=== PATIENT | female | born 1955 | race Caucasian/White ===

== ENCOUNTER → 2017-05-07 15:46 | Outpatient (CLI) | payer MEDICARE, OTHER, SELFPAY ==
[2017-05-07 19:04] LABS: Adenovirus F 40/41, stool Not Detected (NotDetected); Astrovirus Not Detected (NotDetected); Campylobacter Not Detected (NotDetected); Clostridium Difficile A/B, PCR Not Detected (NotDetected); Cryptosporidium Not Detected (NotDetected); Cyclospora Cayetanesis Not Detected (NotDetected); Entamoeba histolytica Not Detected (NotDetected); Enteroaggregative E coli Not Detected (NotDetected); Enteropathogenic E coli Not Detected (NotDetected); Enterotoxigenic E coli Not Detected (NotDetected); Giardia lamblia Not Detected (NotDetected); Norovirus Not Detected (NotDetected); Plesimonas Shigalloides, PCR Not Detected (NotDetected); Rotavirus A Not Detected (NotDetected); Salmonella, PCR Not Detected (NotDetected); Sapovirus Not Detected (NotDetected); Shiga-like toxin E coli Not Detected (NotDetected); Shigella Enterovasive E coli Not Detected (NotDetected); Vibrio Cholerae Not Detected (NotDetected); Vibrio, PCR Not Detected (NotDetected); Yersinia Entercolitica, PCR Not Detected (NotDetected)
[2017-05-10 11:08] LABS: H. pylori Breath Test Negative (Negative)
== END ==
PROVIDERS: PCP Nurse Practitioner Family; Visit Provider Nurse Practitioner Family
DX: R19.7 Diarrhea, unspecified (principal)
CPT/HCPCS: 83013; 87507

== ENCOUNTER → 2017-07-01 11:15 | Outpatient (REF) | payer MEDICARE, OTHER, SELFPAY | LOC: LAB 11:15 | PROVIDERS: Visit Provider Physician Assistant | DX: J02.9 Acute pharyngitis, unspecified (principal) | CPT/HCPCS: 87070 ==

== ENCOUNTER → 2017-09-16 16:36 | Outpatient (REF) | payer MEDICARE, OTHER, SELFPAY | LOC: LAB 16:36 | PROVIDERS: Visit Provider Physician Assistant | DX: R05 Cough (principal) | CPT/HCPCS: 87070; 87205 ==

== ENCOUNTER → 2017-09-25 10:09 | Outpatient (CLI) | payer MEDICARE, OTHER, SELFPAY ==
--- NOTE | 2017-09-25 10:24 | XR_ITS ---
XR chest 2V HISTORY: ITS.REASON: Cough ORDERING PHYSICIAN: Ramana Linton MD PATIENT AGE: 62 years COMPARISON: 11/06/2014 FINDINGS: The cardiomediastinal silhouette and pulmonary vascularity are within normal limits. Calcified nodes are present in the right paratracheal region, right hilum, with calcified granuloma in the right midlung. A vague density is present over the right lower lung zone at the sixth rib anteriorly and may be due to summation artifact. Follow-up may confirm. 8 weeks be area of infiltrate or developing nodule isn't included in the differential diagnosis. The remaining lungs are clear. IMPRESSION: Vague density right lung base which could be due to an area of summation density, small area of infiltrate or developing nodule. Consider follow-up to confirm stability or resolution
[2017-09-25 10:33] LABS: Basophils % 0.3 % (0.1-2.0); Eosinophils # 0.1 K/mm3 (0.0-0.4); Eosinophils % 0.5 % (0.1-12.0); Hematocrit 43.2 % (37.0-47.0); Hemoglobin 13.7 g/dL (12.2-16.2); Lymphocytes # 3.5 K/mm3 (0.7-4.5); Lymphocytes % 34.7 K/mm3 (10-50); Mean Corpuscular HGB Conc 31.6 g/dL (31.8-35.4); Mean Corpuscular Volume 88.5 fl (81-99); Mean Platelet Volume 8.9 fl (7.4-10.4); Monocytes # 0.5 K/mm3 (0.1-1.0); Monocytes % 4.9 % (1.7-9.3); Neutrophils # 6.1 K/mm3 (1.8-7.8); Neutrophils % 59.6 % (37.0-80.0); Platelet Count 229 K/mm3 (142-424); Red Blood Count 4.88 M/mm3 (4.20-5.40); Red Cell Distribution Width 13.4 % (11.5-17.5); White Blood Count 10.2 K/mm3 (4.8-10.8)
[2017-09-25 11:15] LABS: Alanine Aminotransferase 24 U/L (12-78); Albumin Level 3.7 gm/dL (3.4-5.0); Albumin/Globulin Ratio 1.2 (1.1-1.8); Alkaline Phosphatase 79 U/L (46-116); Anion Gap 11.6 mEq/L (5-15); Aspartate Amino Transferase 14 U/L (15-37); Bilirubin,Total 0.4 mg/dL (0.2-1.0); Blood Urea Nitrogen 13 mg/dL (7-18); Carbon Dioxide 32 mmol/L (21.0-32.0); Chloride 102 mmol/L (98-107); Chol/HDL Ratio 4.9 (1-3.5); Cholesterol 182 mg/dL (140-200); Estimated Glomerular Filt Rate 73 ml/min (>60); GFR (African American) 88 ML/MIN (>60); Globulin 3.1 gm/dl (1.3-3.2); Glucose 102 mg/dL (74-106); HDL Cholesterol 37 mg/dL (29-89); LDL Cholesterol 106 mg/dL (0-130); Potassium 3.6 mmoL/L (3.5-5.1); Sodium 142 mmol/L (136-145); Thyroid Stimulating Hormone 3.41 uIU/ml (0.358-3.740); Total Protein,Serum 6.8 gm/dL (6.4-8.2); Triglycerides 196 mg/dL (30-200); VLDL Cholesterol 39 mg/dL (0-40)
[2017-09-26 08:30] LABS: Iron 49 ug/dL (27-139); UIBC 251 ug/dL (118-369)
[2017-09-27 20:03] LABS: Iron Saturation 16 % (15-55)
== END ==
PROVIDERS: Physician Assistant; Visit Provider Emergency Medicine
DX: R42 Dizziness and giddiness (principal)
CPT/HCPCS: 36415; 71046; 80053; 80061; 83540; 83550; 84443; 85025

== ENCOUNTER → 2017-10-11 09:08 | Outpatient (CLI) | payer MEDICARE, OTHER, SELFPAY ==
[2017-10-11 09:11] LABS: Adenovirus F 40/41, stool Not Detected (NotDetected); Astrovirus Not Detected (NotDetected); Campylobacter Not Detected (NotDetected); Clostridium Difficile A/B, PCR Not Detected (NotDetected); Cryptosporidium Not Detected (NotDetected); Cyclospora Cayetanesis Not Detected (NotDetected); Entamoeba histolytica Not Detected (NotDetected); Enteroaggregative E coli Not Detected (NotDetected); Enteropathogenic E coli Not Detected (NotDetected); Enterotoxigenic E coli Not Detected (NotDetected); Giardia lamblia Not Detected (NotDetected); Plesimonas Shigalloides, PCR Not Detected (NotDetected); Rotavirus A Not Detected (NotDetected); Salmonella, PCR Not Detected (NotDetected); Sapovirus Not Detected (NotDetected); Shiga-like toxin E coli Not Detected (NotDetected); Shigella Enterovasive E coli Not Detected (NotDetected); Vibrio Cholerae Not Detected (NotDetected); Vibrio, PCR Not Detected (NotDetected); Yersinia Entercolitica, PCR Not Detected (NotDetected)
--- NOTE | 2017-10-11 10:22 | CA_ITS ---
PROCEDURE: 2-D echo Doppler INDICATIONS FOR THE TEST: Chest pain COPDX Heart MurmurX Tobacco SmokingX Palpitations Fatigue Syncope Edema Hypertension Diabetes Mellitus Rheumatic Fever SOBXDOE Obesity Hyperlipidemia Family History HD Additional History CAD PATIENT INFORMATION HEIGHT: 63 WEIGHT:169 GENDER: Female B/P:118/72 2-D/M-MODE INTERPRETATION: 2-D MEASUREMENTS OBSERVED VALUES IN CMS Right Ventricular Dimension (RVDd) 2.5 Interventricular Septum (Thickness)(IVsd) .8 Left Ventricular Internal Dimensions(LVIDd) 4.8 Left Ventricular Posterior Wall (Thickness)(LVPWd) .9 Aortic Root 4.0 Aortic Cusp Separation 1.9 Left Atrial Dimensions (LAD) 2.2 2D 1. Left atrium is mildly enlarged, left ventricle is normal size, there is no concentric left ventricular hypertrophy, visually estimated ejection fraction 50% with no obvious regional wall motion abnormality. 2. The right atrium and right ventricle are relatively normal size and function. 3. The aortic valve is thickened and calcified leaflet continue to display mobility, ascending aorta above the sinotubular junction appears to be enlarged, the CT scan of the chest with contrast is recommended to exclude presence of thoracic aneurysm. 4. The mitral and tricuspid valve leaflets are grossly normal. 5. The pulmonic valve is poorly visualized. 6. No significant pericardial effusion noted. DOPPLER INTERROGATION: Doppler interrogation of the aortic, mitral and tricuspid valvular presence of mild aortic, mild mitral and tricuspid regurgitation, tricuspid and jet velocity insufficient for calculation of the right ventricular systolic pressure, grade 1 diastolic dysfunction seen without tissue Doppler evidence of raised left atrial pressure. CONCLUSION: 1. Normal left ventricular size, visually estimated ejection fraction 50% with no obvious regional wall motion abnormality, grade 1 diastolic dysfunction seen without tissue Doppler evidence of raised left atrial pressure. 2. Mild aortic, mild mitral and tricuspid regurgitation. 3. The ascending aorta above the sinotubular junction appears to be enlarged, the CT scan of the chest with contrast is recommended for further evaluation. 4. No significant pericardial effusion noted.
[2017-10-11 13:14] LABS: Norovirus Detected (NotDetected)
== END ==
PROVIDERS: PCP Emergency Medicine; Visit Provider Physician Assistant
DX: I25.10 Atherosclerotic heart disease of native coronary artery without angina pectoris (principal); R19.7 Diarrhea, unspecified
CPT/HCPCS: 87507; 93306

== ENCOUNTER → 2017-11-18 13:18 | Outpatient (CLI) | payer MEDICARE, OTHER, SELFPAY ==
[2017-11-18 14:35] LABS: Anion Gap 10.6 mEq/L (5-15); Blood Urea Nitrogen 11 mg/dL (7-18); Calcium 8.6 mg/dL (8.5-10.1); Carbon Dioxide 33 mmol/L (21.0-32.0); Chloride 102 mmol/L (98-107); Creatinine,Serum 0.96 mg/dL (0.55-1.02); Estimated Glomerular Filt Rate 59 ml/min (>60); GFR (African American) 71 ML/MIN (>60); Potassium 3.6 mmoL/L (3.5-5.1); Sodium 142 mmol/L (136-145)
[2017-11-18 14:52] LABS: Glucose 148 mg/dL (74-106)
== END ==
PROVIDERS: PCP Emergency Medicine; Visit Provider Physician Assistant
DX: I77.89 Other specified disorders of arteries and arterioles (principal); B37.9 Candidiasis, unspecified
CPT/HCPCS: 36415; 80048; 87070; 87205

== ENCOUNTER → 2017-11-28 10:33 | Outpatient (REF) | payer MEDICARE, OTHER, SELFPAY | LOC: LAB 10:33 | PROVIDERS: Visit Provider Physician Assistant | DX: R31.9 Hematuria, unspecified (principal) | CPT/HCPCS: 87086 ==

== ENCOUNTER → 2018-02-04 14:22 | Outpatient (REF) | payer MEDICARE, OTHER, SELFPAY | LOC: LAB 14:22 | PROVIDERS: Visit Provider Physician Assistant | DX: R05 Cough (principal) | CPT/HCPCS: 87070; 87205 ==

== ENCOUNTER → 2018-06-16 13:34 | Outpatient (CLI) | payer MEDICARE, OTHER, SELFPAY ==
--- NOTE | 2018-06-16 13:38 | CA_ITS ---
PROCEDURE: 2-D M-mode and color Doppler study INDICATIONS FOR THE TEST: Chest pain COPDX Heart MurmurX Tobacco SmokingX Palpitations Fatigue Syncope Edema HypertensionXDiabetes Mellitus Rheumatic Fever SOBXDOEXObesityXHyperlipidemiaX Family History HD Additional History TDS COPD PATIENT INFORMATION HEIGHT: 63 WEIGHT:185 GENDER: Female B/P:122/72 2-D/M-MODE INTERPRETATION: 2-D MEASUREMENTS OBSERVED VALUES IN CMS Right Ventricular Dimension (RVDd) 2.3 Interventricular Septum (Thickness)(IVsd) .9 Left Ventricular Internal Dimensions(LVIDd) 4.9 Left Ventricular Posterior Wall (Thickness)(LVPWd) 1.0 Aortic Root 3.5 Aortic Cusp Separation 2.3 Left Atrial Dimensions (LAD) 2.2 2D 1. Left atrium is mildly enlarged, left ventricle is normal size, there is no concentric left ventricular hypertrophy, visually estimated ejection fraction of 55% with no regional wall motion abnormality. 2. The right atrium and right ventricle are mildly enlarged with normal contractility. 3. The aortic valve is minimally thickened and calcified. 4. The mitral and tricuspid valve leaflets are grossly normal. 5. The pulmonic valve is poorly visualized. 6. No significant pericardial effusion noted. DOPPLER INTERROGATION: Doppler interrogation of the aortic, mitral and tricuspid valvular presence of trace aortic, mild mitral and tricuspid regurgitation, tricuspid regurgitation jet velocity is inadequate for calculation of the right ventricular systolic pressure, diastolic parameters are inconclusive CONCLUSION: 1. Mild biatrial enlargement, normal left ventricular size, visually estimated ejection fraction 55% with no regional wall motion abnormality, diastolic parameters are inconclusive. 2. Mildly enlarged right ventricle with normal contractility. 3. Trace aortic, mild mitral and tricuspid regurgitation 4. No significant pericardial effusion noted.
--- NOTE | 2018-06-16 13:38 | CI_ITS ---
Cerebrovascular Exam Indications: 433.10 Occlusion/stenosis of carotid artery without cerebral infarction. IMPRESSIONS 1. The bilateral vertebral arteries are patent with normal antegrade flow. 2. Study suggests 70-99% stenosis involving the right internal carotid artery. 3. Study suggests 20-49% stenosis involving the left internal carotid artery. No change from the study of 27-Sep-2016. History: Risk factors: Current tobacco use. Hypertension. Hyperlipidemia. Carotid duplex study. Complete study and Doppler flow study including spectral analysis, color and miller scale imaging. Location: Vascular laboratory. Patient status: Outpatient. Tables: Arterial flow: + +--------+--------+ Location V sys V ed + +--------+--------+ Right CCA - proximal 64.4cm/s 16.5cm/s + +--------+--------+ Right CCA - distal 58.1cm/s 14.9cm/s + +--------+--------+ Right ECA 119cm/s -------- + +--------+--------+ Right ICA - proximal 446cm/s 193cm/s + +--------+--------+ Right ICA - mid 136cm/s 41.3cm/s + +--------+--------+ Right ICA - distal 110cm/s 39.3cm/s + +--------+--------+ Right vertebral 80.5cm/s -------- + +--------+--------+ Left CCA - proximal 84.5cm/s 31.4cm/s + +--------+--------+ Left CCA - distal 90.4cm/s 37.3cm/s + +--------+--------+ Left ECA 107cm/s -------- + +--------+--------+ Left ICA - proximal 84.2cm/s 33.9cm/s + +--------+--------+ Left ICA - mid 119cm/s 40.1cm/s + +--------+--------+ Left ICA - distal 86.7cm/s 28.9cm/s + +--------+--------+ Left vertebral 55.3cm/s -------- + +--------+--------+ Velocity ratios: + + + + + + Right, V sys Right, V ed Left, V sys Left, V ed + + + + + + Max ICA/dist CCA 7.68 12.95 1.32 1.08 + + + + + + (Report amended ) Electronically signed by: Miguel Ángel George [id number]
== END ==
PROVIDERS: PCP Physician Assistant; Visit Provider Physician Assistant
DX: R01.1 Cardiac murmur, unspecified (principal); R09.89 Other specified symptoms and signs involving the circulatory and respiratory systems
CPT/HCPCS: 93306; 93880

== ENCOUNTER → 2018-06-25 09:48 | Outpatient (CLI) | payer MEDICARE, OTHER, SELFPAY ==
[2018-06-25 10:16] LABS: Basophils # 0.1 K/mm3 (0-0.2); Basophils % 0.6 % (0.1-2.0); Eosinophils # 0.1 K/mm3 (0.0-0.4); Eosinophils % 0.9 % (0.1-12.0); Hematocrit 37.5 % (37.0-47.0); Hemoglobin 12.6 g/dL (12.2-16.2); Lymphocytes # 3.3 K/mm3 (0.7-4.5); Lymphocytes % 33.4 % (10-50); Mean Corpuscular HGB Conc 33.5 g/dL (31.8-35.4); Mean Corpuscular Hemoglobin 29.2 pg (27.0-31.2); Mean Corpuscular Volume 86.9 fl (81-99); Mean Platelet Volume 7.7 fl (7.4-10.4); Monocytes # 0.4 K/mm3 (0.1-1.0); Neutrophils # 5.9 K/mm3 (1.8-7.8); Platelet Count 269 K/mm3 (142-424); Red Blood Count 4.32 M/mm3 (4.20-5.40); White Blood Count 9.7 K/mm3 (4.8-10.8)
[2018-06-25 11:49] LABS: Alanine Aminotransferase 26 U/L (12-78); Albumin Level 3.4 gm/dL (3.4-5.0); Albumin/Globulin Ratio 1.1 (1.1-1.8); Alkaline Phosphatase 76 U/L (46-116); Aspartate Amino Transferase 19 U/L (15-37); Bilirubin,Total 0.4 mg/dL (0.2-1.0); Blood Urea Nitrogen 12 mg/dL (7-18); Carbon Dioxide 33 mmol/L (21.0-32.0); Chloride 101 mmol/L (98-107); Chol/HDL Ratio 5.1 (1-3.5); Cholesterol 192 mg/dL (140-200); Creatinine,Serum 0.72 mg/dL (0.55-1.02); Estimated Glomerular Filt Rate 82 ml/min (>60); Ferritin 41 ng/mL (8-388); GFR (African American) 99 ML/MIN (>60); Globulin 3.2 gm/dl (1.3-3.2); Glucose 97 mg/dL (74-106); HDL Cholesterol 38 mg/dL (29-89); LDL Cholesterol 92 mg/dL (0-130); Sodium 141 mmol/L (136-145); T4 (Thyroxine) 9.9 ug/dl (4.7-13.3); Thyroid Stimulating Hormone 4.48 uIU/ml (0.358-3.740); Total Protein,Serum 6.6 gm/dL (6.4-8.2); Triglycerides 312 mg/dL (30-200); VLDL Cholesterol 62 mg/dL (0-40)
[2018-06-26 08:18] LABS: Vitamin D 25 Hydroxy 9.2 ng/mL (30.0-100.0)
[2018-06-27 05:25] LABS: Iron 49 ug/dL (27-139); UIBC 244 ug/dL (118-369)
[2018-06-27 08:52] LABS: Iron Saturation 17 % (15-55)
== END ==
PROVIDERS: Visit Provider Physician Assistant
DX: R09.89 Other specified symptoms and signs involving the circulatory and respiratory systems (principal); E78.5 Hyperlipidemia, unspecified; D50.9 Iron deficiency anemia, unspecified
CPT/HCPCS: 36415; 80053; 80061; 82652; 82728; 83540; 83550; 84436; 84443; 85025; 87070; 87205

== ENCOUNTER 2018-10-01 17:11 | Emergency (ER) | payer MEDICARE, OTHER, SELFPAY ==
--- NOTE | 2018-10-01 17:10 | XR_ITS ---
XR chest 2V HISTORY: ITS.REASON: chest pain ORDERING PHYSICIAN: Ramana Drake MD PATIENT AGE: 63 years COMPARISON: 09/25/2017. FINDINGS: The cardiomediastinal silhouette and pulmonary vascularity are within normal limits. The lungs are clear without infiltrates, suspicious nodules, or pleural effusions. There are stable benign-appearing calcified mediastinal lymph nodes. There is a stable benign calcified granuloma in the right midlung. The remainder of the lung desai are clear. No acute bony abnormalities. IMPRESSION: No acute process and no significant change.
[2018-10-01 17:16] VITALS: BP 118/63; PULSE 79; RESP 20; TEMP 36.6; O2SAT 94; BMI 34.2
[2018-10-01 17:45] LABS: Basophils % 0.5 % (0.1-2.0); Eosinophils # 0.1 K/mm3 (0.0-0.4); Eosinophils % 0.9 % (0.1-12.0); Hematocrit 34.2 % (37.0-47.0); Hemoglobin 10.9 g/dL (12.2-16.2); Lymphocytes # 3.2 K/mm3 (0.7-4.5); Lymphocytes % 34.5 % (10-50); Mean Corpuscular Hemoglobin 27.4 pg (27.0-31.2); Mean Corpuscular Volume 85.7 fl (81-99); Monocytes # 0.5 K/mm3 (0.1-1.0); Monocytes % 5.2 % (1.7-9.3); Neutrophils # 5.5 K/mm3 (1.8-7.8); Platelet Count 245 K/mm3 (142-424); Red Blood Count 3.99 M/mm3 (4.20-5.40); Red Cell Distribution Width 14.6 % (11.5-17.5); White Blood Count 9.4 K/mm3 (4.8-10.8)
[2018-10-01 17:58] LABS: Anion Gap 13.6 mEq/L (5-15); Blood Urea Nitrogen 13 mg/dL (7-18); Calcium 8.6 mg/dL (8.5-10.1); Carbon Dioxide 29 mmol/L (21.0-32.0); Chloride 102 mmol/L (98-107); Creatinine Clearance Estimated 80 mL/min (50-200); Creatinine,Serum 0.93 mg/dL (0.55-1.02); Estimated Glomerular Filt Rate 61 ml/min (>60); GFR (African American) 74 ML/MIN (>60); Glucose 106 mg/dL (74-106); Potassium 3.6 mmoL/L (3.5-5.1); Sodium 141 mmol/L (136-145); Troponin I < 0.02 ng/ml (0.00-0.06)
--- NOTE | 2018-10-01 18:51 | HMH.EDGENADL ---
ED Disposition Clinical Impression: Strain of muscle of torso Disposition: Home, Self-Care Condition on Discharge: Good Instructions: DI for Atypical Chest Pain, DI for Back Strain or Sprain Referrals: Rosa M Hollingsworth PA [Primary Care Provider] - Time of Disposition: 19:52 - Critical Care Critical Care Time: No Attestation: On 10/01/18, the high probability of a clinically significant, sudden or life threatening deterioration of the following system(s) required my full and direct attention, intervention and personal management. The time I documented below is in addition to time spent performing reported procedures but includes the following listed in this critical care notation. Medical Decision Making - Medical Records Medical records reviewed: Yes: I reviewed the patient's medical records. - Ernie Inquiry Pt receiving controlled substance: No Ernie was queried for this patient: No Vital Signs: 10/01/18 17:16 Temperature 97.9 F Temperature Source Oral Pulse Rate [Left Radial] 79 Respiratory Rate 20 Blood Pressure [Right Arm] 118/63 Blood Pressure Mean [Right Arm] 81 Blood Pressure Source [Right Arm] Automatic Cuff Blood Pressure Position [Right Arm] Sitting 02 Sat by Pulse Oximetry 94 L Oxygen Delivery Method Room Air - Lab Data Lab results reviewed: Yes: I reviewed the patient's lab results. Lab Results 10/01/18 17:15: WBC 9.4, RBC 3.99 L, Hgb 10.9 L, Hct 34.2 L, MCV 85.7, MCH 27.4, MCHC 32.0, RDW 14.6, Plt Count 245, MPV 8.0, Neut % (Auto) 59.0, Lymph % (Auto) 34.5, [place] % (Auto) 5.2, Eos % (Auto) 0.9, Baso % (Auto) 0.5, Neut # (Auto) 5.5, Lymph # (Auto) 3.2, [place] # (Auto) 0.5, Eos # (Auto) 0.1, Baso # (Auto) 0.0 10/01/18 17:15: Sodium 141, Potassium 3.6, Chloride 102, Carbon Dioxide 29, Anion Gap 13.6, BUN 13, Creatinine 0.93, Estimated Creat Clear 80, Estimated GFR 61, Est GFR ( Amer) 74, Glucose 106, Calcium 8.6, Troponin I < 0.02 Result diagrams: 10/01/18 17:15 10/01/18 17:15 Orders (Tests/Meds): ED MEDICATIONS Discontinued Medications Generic Name Dose Route Start Last Admin Trade Name Becky PRN Reason Stop Dose Admin Hydrocodone Bitart/Acetaminophen 1 tab 10/01/18 19:45 [place] 7.5/325mg Tablet PO 10/01/18 19:46 ONCE ONE Ketorolac Tromethamine 30 mg 10/01/18 19:38 Toradol 30mg/Ml Vial IV 10/01/18 19:39 ONCE ONE ORDERS Category Date Time Status XR chest 2V Stat Exams 10/01/18 17:10 Taken General Adult HPI - General Chief complaint: Chest Pain Stated complaint: chest pain Time Seen by Provider: 10/01/18 18:57 Mode of Arrival: Ambulatory Source of Information: Patient Limitations: No Limitations Description of Symptoms (Recalled from ER Triage Doc. by RN): states she was bending iver helping lift a dresser when she raised up her back was hurting she bent back over to lift the dresser and raised back up again she started having some chest pain that went down and around her left breast into the middle of her chest - History of Present Illness HPI narrative: patient lifted a television with a friend, feeling chest and back pain at the t erminal end of the lift. Pain under left breast and left scapular area. no dyspnea. Pain is aggravated only by movement and deep breathing. - Related Data Home Medications Medication Instructions Recorded Confirmed aspirin 81 mg tablet,delayed 81 mg PO QDAY 05/02/17 09/11/18 release Previous Rx's Medication Instructions Recorded bupropion HCl XL 150 mg 24 hr 150 mg PO QAM #30 tab 08/06/17 tablet, extended release ketoconazole 200 mg tablet 200 mg PO DAILY #30 tab 11/28/17 atenolol 25 mg tablet 25 mg PO QAM #90 tab 03/25/18 fluticasone propionate 50 1 spray INTRANASAL BID PRN #9.9 g 04/03/18 mcg/actuation nasal spray,suspension montelukast 10 mg tablet 10 mg PO QPM #90 tab 05/23/18 fluticasone fur. 100 mcg-umeclid 1 inh INHALATION Q24H #60 each 06/17/18 62.5 mcg-vilan
--- NOTE | 2018-10-01 18:57 | ED_ITS ---
ED Disposition Clinical Impression: Strain of muscle of torso Disposition: Home, Self-Care Condition on Discharge: Good Instructions: DI for Atypical Chest Pain, DI for Back Strain or Sprain Referrals: Rosa M Hollingsworth PA [Primary Care Provider] - Time of Disposition: 19:52 - Critical Care Critical Care Time: No Attestation: On 10/01/18, the high probability of a clinically significant, sudden or life threatening deterioration of the following system(s) required my full and direct attention, intervention and personal management. The time I documented below is in addition to time spent performing reported procedures but includes the follow ing listed in this critical care notation. Medical Decision Making - Medical Records Medical records reviewed: Yes: I reviewed the patient's medical records. - Ernie Inquiry Pt receiving controlled substance: No Ernie was queried for this patient: No Vital Signs: 10/01/18 17:16 Temperature 97.9 F Temperature Source Oral Pulse Rate [Left Radial] 79 Respiratory Rate 20 Blood Pressure [Right Arm] 118/63 Blood Pressure Mean [Right Arm] 81 Blood Pressure Source [Right Arm] Automatic Cuff Blood Pressure Position [Right Arm] Sitting 02 Sat by Pulse Oximetry 94 L Oxygen Delivery Method Room Air - Lab Data Lab results reviewed: Yes: I reviewed the patient's lab results. Lab Results 10/01/18 17:15: WBC 9.4, RBC 3.99 L, Hgb 10.9 L, Hct 34.2 L, MCV 85.7, MCH 27.4, MCHC 32.0, RDW 14.6, Plt Count 245, MPV 8.0, Neut % (Auto) 59.0, Lymph % (Auto) 34.5, [place] % (Auto) 5.2, Eos % (Auto) 0.9, Baso % (Auto) 0.5, Neut # (Auto) 5.5, Lymph # (Auto) 3.2, [place] # (Auto) 0.5, Eos # (Auto) 0.1, Baso # (Auto) 0.0 10/01/18 17:15: Sodium 141, Potassium 3.6, Chloride 102, Carbon Dioxide 29, Anion Gap 13.6, BUN 13, Creatinine 0.93, Estimated Creat Clear 80, Estimated GFR 61, Est GFR ( Amer) 74, Glucose 106, Calcium 8.6, Troponin I < 0.02 Result diagrams: 10/01/18 17:15 10/01/18 17:15 Orders (Tests/Meds): ED MEDICATIONS Discontinued Medications Generic Name Dose Route Start Last Admin Trade Name Becky PRN Reason Stop Dose Admin Hydrocodone Bitart/Acetaminophen 1 tab 10/01/18 19:45 [place] 7.5/325mg Tablet PO 10/01/18 19:46 ONCE ONE Ketorolac Tromethamine 30 mg 10/01/18 19:38 Toradol 30mg/Ml Vial IV 10/01/18 19:39 ONCE ONE ORDERS Category Date Time Status XR chest 2V Stat Exams 10/01/18 17:10 Taken General Adult HPI - General Chief complaint: Chest Pain Stated complaint: chest pain Time Seen by Provider: 10/01/18 18:57 Mode of Arrival: Ambulatory Source of Information: Patient Limitations: No Limitations Description of Symptoms (Recalled from ER Triage Doc. by RN): states she was bending iver helping lift a dresser when she raised up her back was hurting she bent back over to lift the dresser and raised back up again she started having some chest pain that went down and around her left breast into the middle of her chest - History of Present Illness HPI narrative: patient lifted a television with a friend, feeling chest and back pain at th
[2018-10-01 20:02] VITALS: BP 120/60; PULSE 65; RESP 20; TEMP 36.9; O2SAT 98
== END 2018-10-01 20:05 | disposition home or self-care (01) ==
PROVIDERS: Emergency Provider Emergency Medicine; PCP Physician Assistant
DX: S29.019A Strain of muscle and tendon of unspecified wall of thorax, initial encounter (principal); X50.0XXA Overexertion from strenuous movement or load, initial encounter; Y92.019 Unspecified place in single-family (private) house as the place of occurrence of the external cause; I25.10 Atherosclerotic heart disease of native coronary artery without angina pectoris; E03.9 Hypothyroidism, unspecified; E78.5 Hyperlipidemia, unspecified; F17.210 Nicotine dependence, cigarettes, uncomplicated
CPT/HCPCS: 71046; 80048; 84484; 85025; 93005; 99283

== ENCOUNTER → 2018-10-13 16:45 | Outpatient (CLI) | payer MEDICARE, OTHER, SELFPAY ==
--- NOTE | 2018-10-13 16:50 | XR_ITS ---
EXAM: XR thoracic spine 3V HISTORY: ITS.REASON: Thoracic back pain Comparison: None FINDINGS: Normal alignment. No fracture or dislocation. No lytic or blastic change. There are mild degenerative changes in the midthoracic spine. There is minimal wedging of T8 which appears slightly greater than when compared to 09/25/2017. There is at least 30% loss of height anteriorly. No obvious retropulsion. Dense right-sided paratracheal calcified lymph nodes are present. No lytic or blastic change IMPRESSION: Mild wedging of T8 slightly worse compared to the previous chest x-ray of 09/25/2017
== END ==
PROVIDERS: PCP Emergency Medicine; Visit Provider Physician Assistant
DX: M54.6 Pain in thoracic spine (principal)
CPT/HCPCS: 72072

== ENCOUNTER → 2018-11-13 13:29 | Outpatient (CLI) | payer MEDICARE, OTHER, SELFPAY ==
--- NOTE | 2018-11-13 13:30 | MR_ITS ---
MR thoracic spine wo con HISTORY: Mid back pain that radiates to the RT side and into chest. Pain in constant. Pain to breathe. X3-X4wks. No trauma. ITS.REASON: wedging of T8 r/o compression fx ORDERING PHYSICIAN: NAVEEN Burt PATIENT AGE: 63 years Comparison: X-RAY 10-13-18 TECHNIQUE: Standard multiplanar multiecho sequences are performed without contrast. 3-D MIP and myelographic images are also rendered and reviewed FINDINGS: There is normal alignment. There is mild wedge compression changes involving the T3 vertebral body with a small Schmorl's node along the superior endplate. The compression does not appear acute with loss of height of approximately 10%. Minimal loss of height of T4 nonacute of less than 10% with a Schmorl's node along the superior endplate. There is mild wedge compression changes involving the T8 vertebral body demonstrating decreased T1 signal in the mid and superior aspect an increase in T2 and STIR signal throughout the vertebral body. There is a Schmorl's node along the superior endplate. There is loss of height anteriorly of approximately 20%. This is consistent with an acute wedge compression fracture. There is no retropulsion. There is minimal bulging of the disc. No cord impingement There is mild multilevel degenerative disc disease from T4 to T12. No disc herniation or canal stenosis. Mild bulging disc with endplate osteophytes at T11-T12 without cord impingement. IMPRESSION: 1. Mild acute compression fracture of T8 with loss of height of approximately 20%. No retropulsion. 2. Mild multilevel thoracic spondylosis as detailed above. Minimal chronic wedging of T3 and T4.
== END ==
PROVIDERS: PCP Physician Assistant; Visit Provider Physician Assistant
DX: M48.50XA Collapsed vertebra, not elsewhere classified, site unspecified, initial encounter for fracture (principal)
CPT/HCPCS: 72146

== ENCOUNTER → 2019-01-02 10:10 | Outpatient (CLI) | payer MEDICARE, OTHER, SELFPAY ==
--- NOTE | 2019-01-02 10:12 | CA_ITS ---
APPROVED REPORT Systems Program Manager: Coral Raymond RVT Laterality: Bilateral Study Quality: Good Indications: Bruit, Carotid stenosis Risk Factors Hypertension: Hyperlipidemia Smoking Doppler Spectral Velocity Analysis ECA (R) 86.10/14.50 cm/s ECA (L) 117.00/17.10 cm/s dICA (R) 119.00/33.40 cm/s dICA (L) 82.30/25.10 cm/s Ila (R) 417.00/130.00 cm/s Ila (L) 105.00/38.30 cm/s pICA (R) 427.00/152.00 cm/s pICA (L) 90.60/27.90 cm/s dCCA (R) 65.50/14.00 cm/s dCCA (L) 83.50/17.00 cm/s pCCA (R) 68.20/6.02 cm/s pCCA (L) 75.20/24.50 cm/s Vert (R) 31.40/8.80 cm/s Vert (L) 48.30/14.10 cm/s ICA/CCA 6.52 ICA/CCA 1.26 Findings Study suggests 70-99% stenosis of the right internal carotid artery, unchanged from the 06/16/18 study. Study suggests 20-49%(lower end of scale) stenosis of the left internal carotid artery, unchanged from the 06/16/18 study. Antegrade flow seen bilateral vertebral arteries. Conclusion Study suggests 70-99% stenosis of the right internal carotid artery, unchanged from the 06/16/18 study. Study suggests 20-49%(lower end of scale) stenosis of the left internal carotid artery, unchanged from the 06/16/18 study. Antegrade flow seen bilateral vertebral arteries. Electronically signed by : Miguel Ángel George MD 01/02/2019 14:29:20
--- NOTE | 2019-01-02 10:12 | CA_ITS ---
APPROVED REPORT EXAM: Comprehensive 2D, Doppler, and color-flow Echocardiogram Instructor Business Education: Dorothy Burnett RT(R) Ht: 5 ft 3 in Wt: 197lbs BSA: 1.92 BP: 122/68 mmHg Indications: Murmur, CAD, Hyperlipidemia, Hypertension/HDD 2D Dimensions LVOT 1.90 cm (M/F) 1.5-2.5 M-Mode Dimensions RVDd 2.80 cm (0.9-2.6) LA Diam 3.30 cm (1.9-4.0) LVDd 5.80 cm (3.5-5.7) Ao Diam 3.80 cm (2.0-3.7) LVDs 4.20 cm (3.5-5.7) AV Cusp 2.10 cm (1.5-2.6) IVSd 0.90 cm (0.6-1.1) PWd 0.50 cm (0.6-1.1) EF (Teich) 52.90% FS 27.60% EDV (Teich) 167.00 mL ESV (Teich) 78.60 mL LV Diastology E/A Ratio 0.90 MED E' 7.12 (< 7 cm/sec) E'/MED E' Ratio 10.50 (>14) LAT E' 6.14 (<10 cm/sec) E/LAT E' Ratio 12.10 (>14) Aortic Valve AoV Peak Raul. 154.00 (50-130 cm/s) AI PHT 475.00 ms AO Peak GR. 9.00 mmHg Mitral Valve MV E Max Raul. 74.50 (40-130 cm/s) MV A Velocity 83.90 (40-130 cm/s) E/A Ratio 0.90 Pulmonary Valve PA Accel Time 165.00 (>120 msec) Tricuspid Valve TR P. Velocity 222.00 cm/s RAP Estimate 10.00 mmHg RVSP 30.00 mmHg Left Ventricle Left atrium is mildly enlarged, left ventricle normal size, mild concentric left ventricular hypertrophy, visually estimated ejection fraction 55% with no regional wall motion abnormality, grade 1 diastolic dysfunction seen with tissue Doppler evidence of raise left atrial pressure. Right Ventricle Right atrium and right ventricular qualitatively mildly enlarged with normal contractility. Aortic Valve Aortic valve is thickened and calcified, there is no aortic stenosis, there is mild aortic insufficiency. Mitral Valve Mitral valve has mitral calcification, there is no mitral stenosis, there is mild mitral regurgitation. Tricuspid Valve Tricuspid valve is grossly normal, there is no tricuspid stenosis, there is mild tricuspid regurgitation, tricuspid dilatation jet velocity is inadequate for calculation of the right ventricular systolic pressure. Pulmonic Valve Pulmonic valve is poorly visualized. Great Vessels Aortic root is normal size. Pericardium No significant pericardial effusion noted. Conclusion 1. Mild biatrial enlargement, normal left ventricular size, mild concentric left ventricular hypertrophy, visually estimated ejection fraction 55% with no regional wall motion abnormality, grade 1 diastolic dysfunction seen with tissue Doppler evidence of raise left atrial pressure. 2. Mild aortic, mild mitral and tricuspid regurgitation. 3. No significant pericardial effusion noted. Electronically signed by : Praful Poole, 01/02/2019 15:23:21
== END ==
PROVIDERS: PCP Physician Assistant; Visit Provider Physician Assistant
DX: R09.89 Other specified symptoms and signs involving the circulatory and respiratory systems (principal); R01.1 Cardiac murmur, unspecified
CPT/HCPCS: 93306; 93880

== ENCOUNTER → 2019-01-22 10:00 | Outpatient (CLI) | payer MEDICARE, OTHER, SELFPAY ==
[2019-01-22 11:39] LABS: Basophils # 0.1 K/mm3 (0-0.2); Basophils % 0.6 % (0.1-2.0); Eosinophils # 0.1 K/mm3 (0.0-0.4); Eosinophils % 1.3 % (0.1-12.0); Hematocrit 35.3 % (37.0-47.0); Hemoglobin 11.2 g/dL (12.2-16.2); Lymphocytes # 2.7 K/mm3 (0.7-4.5); Lymphocytes % 30.3 % (10-50); Mean Corpuscular HGB Conc 31.7 g/dL (31.8-35.4); Mean Corpuscular Hemoglobin 27.5 pg (27.0-31.2); Mean Corpuscular Volume 86.8 fl (81-99); Mean Platelet Volume 8.3 fl (7.4-10.4); Monocytes # 0.5 K/mm3 (0.1-1.0); Monocytes % 5.6 % (1.7-9.3); Neutrophils # 5.6 K/mm3 (1.8-7.8); Neutrophils % 62.2 % (37.0-80.0); Platelet Count 262 K/mm3 (142-424); Red Blood Count 4.06 M/mm3 (4.20-5.40); Red Cell Distribution Width 14.5 % (11.5-17.5); White Blood Count 8.9 K/mm3 (4.8-10.8)
[2019-01-22 13:46] LABS: Alanine Aminotransferase 19 U/L (12-78); Albumin Level 3.5 gm/dL (3.4-5.0); Albumin/Globulin Ratio 1.1 (1.1-1.8); Alkaline Phosphatase 76 U/L (46-116); Anion Gap 13.6 mEq/L (5-15); Aspartate Amino Transferase 14 U/L (15-37); Bilirubin,Total 0.4 mg/dL (0.2-1.0); Blood Urea Nitrogen 12 mg/dL (7-18); Calcium 8.7 mg/dL (8.5-10.1); Carbon Dioxide 30 mmol/L (21.0-32.0); Chloride 101 mmol/L (98-107); Chol/HDL Ratio 4.5 (1-3.5); Cholesterol 165 mg/dL (140-200); Creatinine,Serum 0.84 mg/dL (0.55-1.02); Estimated Glomerular Filt Rate 68 ml/min (>60); GFR (African American) 83 ML/MIN (>60); Globulin 3.1 gm/dl (1.3-3.2); Glucose 100 mg/dL (74-106); HDL Cholesterol 37 mg/dL (29-89); LDL Cholesterol 82 mg/dL (0-130); Potassium 3.6 mmoL/L (3.5-5.1); Sodium 141 mmol/L (136-145); T4 (Thyroxine) 9.8 ug/dl (4.7-13.3); Thyroid Stimulating Hormone 2.57 uIU/ml (0.358-3.740); Total Protein,Serum 6.6 gm/dL (6.4-8.2); Triglycerides 230 mg/dL (30-200); VLDL Cholesterol 46 mg/dL (0-40)
[2019-01-23 17:28] LABS: Vitamin D 25 Hydroxy 39.5 ng/mL (30.0-100.0)
== END ==
PROVIDERS: Visit Provider Physician Assistant
DX: E03.9 Hypothyroidism, unspecified (principal); E55.9 Vitamin D deficiency, unspecified; R42 Dizziness and giddiness; T14.8XXA Other injury of unspecified body region, initial encounter; E78.5 Hyperlipidemia, unspecified
CPT/HCPCS: 36415; 80053; 80061; 82652; 84436; 84443; 85025

== ENCOUNTER → 2019-10-02 11:48 | Outpatient (CLI) | payer MEDICARE, OTHER, SELFPAY ==
[2019-10-02 12:47] LABS: Basophils # 0.1 K/mm3 (0-0.2); Basophils % 0.5 % (0.1-2.0); Eosinophils # 0.1 K/mm3 (0.0-0.4); Eosinophils % 0.9 % (0.1-12.0); Hematocrit 35.7 % (37.0-47.0); Hemoglobin 11.9 g/dL (12.2-16.2); Lymphocytes # 3.5 K/mm3 (0.7-4.5); Lymphocytes % 34.5 % (10-50); Mean Corpuscular HGB Conc 33.5 g/dL (31.8-35.4); Mean Corpuscular Hemoglobin 28.4 pg (27.0-31.2); Mean Corpuscular Volume 84.7 fl (81-99); Mean Platelet Volume 8.1 fl (7.4-10.4); Monocytes # 0.5 K/mm3 (0.1-1.0); Monocytes % 4.5 % (1.7-9.3); Neutrophils # 6.1 K/mm3 (1.8-7.8); Neutrophils % 59.6 % (37.0-80.0); Platelet Count 276 K/mm3 (142-424); Red Blood Count 4.21 M/mm3 (4.20-5.40); Red Cell Distribution Width 15.2 % (11.5-17.5); White Blood Count 10.2 K/mm3 (4.8-10.8)
[2019-10-02 14:03] LABS: Alanine Aminotransferase 21 U/L (12-78); Albumin Level 4.3 g/dl (3.5-5.0); Albumin/Globulin Ratio 1.5 (1.1-1.8); Alkaline Phosphatase 79 U/L (38-126); Aspartate Amino Transferase 30 U/L (14-36); Bilirubin,Total 0.3 mg/dl (0.2-1.3); Blood Urea Nitrogen 15 mg/dl (7-17); Calcium 9.4 mg/dl (8.4-10.2); Carbon Dioxide 32 mmol/L (22.0-30.0); Chloride 98 mmol/L (98-107); Chol/HDL Ratio 3.9 (1-3.5); Cholesterol 170 mg/dl (140-200); Estimated Glomerular Filt Rate 63 ml/min (>60); GFR (African American) 76 ML/MIN (>60); Globulin 2.8 g/dL (1.3-3.2); Glucose 114 mg/dl (74-100); HDL Cholesterol 44 mg/dl (40-60); Sodium 136 mmol/L (136-145); Total Protein,Serum 7.1 g/dl (6.3-8.2); Triglycerides 276 mg/dl (30-150); VLDL Cholesterol 55 mg/dL (0-40)
[2019-10-02 14:14] LABS: Direct LDL Cholesterol 94.05 mg/dL (100-129)
[2019-10-02 14:20] LABS: T4 (Thyroxine) 10.1 ug/dl (5.53-11.0)
[2019-10-02 14:33] LABS: Thyroid Stimulating Hormone 2.64 uIU/mL (0.465-4.68)
== END ==
PROVIDERS: Visit Provider Physician Assistant
DX: Z01.818 Encounter for other preprocedural examination (principal); R09.89 Other specified symptoms and signs involving the circulatory and respiratory systems; I65.29 Occlusion and stenosis of unspecified carotid artery
CPT/HCPCS: 36415; 80053; 80061; 84436; 84443; 85025

== ENCOUNTER → 2019-10-02 14:27 | Outpatient (CLI) | payer MEDICARE, OTHER, SELFPAY ==
--- NOTE | 2019-10-02 14:32 | CA_ITS ---
APPROVED REPORT Firmware Developer: Coral Raymond RVT Laterality: Bilateral Study Quality: Good Indications: Carotid stenosis, Dizziness and Vertigo Risk Factors Hypertension: Hyperlipidemia Smoking Doppler Spectral Velocity Analysis ECA (R) 107.20/8.30 cm/s ECA (L) 113.40/8.40 cm/s dICA (R) 64.50/17.70 cm/s dICA (L) 69.30/26.40 cm/s Ila (R) 72.40/17.40 cm/s Ila (L) 86.50/29.30 cm/s pICA (R) 390.50/166.30 cm/s pICA (L) 83.60/31.40 cm/s dCCA (R) 65.80/15.70 cm/s dCCA (L) 79.10/28.10 cm/s pCCA (R) 74.10/17.20 cm/s pCCA (L) 90.50/27.10 cm/s Vert (R) 34.30/10.40 cm/s Vert (L) 42.70/15.60 cm/s ICA/CCA 5.94 ICA/CCA 1.09 Findings Study suggest 70-99% stenosis of the right internal cartoid artery unchanged from the 01/02/19 study. Study suggests 20-49% stenosis of the left internal cartoid artery unchanged from the 01/02/19 study. Antegrade flow seen bilateral vertebral arteries. Conclusion Study suggest 70-99% stenosis of the right internal cartoid artery unchanged from the 01/02/19 study. Study suggests 20-49% stenosis of the left internal cartoid artery unchanged from the 01/02/19 study. Antegrade flow seen bilateral vertebral arteries. Electronically signed by : Miguel Ángel George MD 10/05/2019 17:02:59
== END ==
PROVIDERS: PCP Physician Assistant; Visit Provider Physician Assistant
DX: R09.89 Other specified symptoms and signs involving the circulatory and respiratory systems (principal); I65.23 Occlusion and stenosis of bilateral carotid arteries; R07.9 Chest pain, unspecified
CPT/HCPCS: 36415; 80053; 80061; 84436; 84443; 85025; 93306; 93880

== ENCOUNTER → 2019-10-07 15:37 | Outpatient (CLI) | payer MEDICARE, OTHER, SELFPAY ==
--- NOTE | 2019-10-07 15:42 | XR_ITS ---
PROCEDURE: XR KNEE LT 4V CLINICAL INDICATION: swelling left knee COMPARISON: No exams were available for comparison FINDINGS: No fracture or dislocation. No lytic or blastic change. There is normal mineralization. There are mild osteoarthritic changes of the medial compartment. Small suprapatellar effusion is present. There is vascular calcification noted. Other findings:None. IMPRESSION: Mild osteoarthritis with knee joint effusion Dictated by: Miguel Ángel George MD 10/07/2019 16:46 Electronically signed by Miguel Ángel George MD in [place] 10/07/2019 16:46
--- NOTE | 2019-10-07 15:42 | XR_ITS ---
PROCEDURE: XR RIBS RT MIN 3V W CXR1V CLINICAL INDICATION: rib pain, cough COMPARISON: CXR CHEST(2 VIEWS-NOT PORTABLE) from 11/06/2014 CXR2V XR chest 2V from 09/25/2017 Chest from 10/01/2018 FINDINGS: Frontal view of the chest shows old granulomatous disease. No lobar consolidation or collapse is evident. There is some cortical angulation of the anterior aspect of the right 6th rib consistent with a nondisplaced fracture which may be old. CT may confirm IMPRESSION: Suspect right 6th rib fracture age indeterminate with old granulomatous disease Dictated by: Miguel Ángel George MD 10/07/2019 16:50 Electronically signed by Miguel Ángel George MD in [place] 10/07/2019 16:50
== END ==
PROVIDERS: PCP Physician Assistant; Visit Provider Physician Assistant
DX: R07.81 Pleurodynia (principal); M25.562 Pain in left knee
CPT/HCPCS: 71101; 73564

== ENCOUNTER 2020-02-20 10:58 | Emergency (ER) | payer MEDICARE, OTHER, SELFPAY ==
[2020-02-20 11:38] VITALS: BP 120/78; PULSE 84; RESP 18; TEMP 36.8; O2SAT 98; BMI 35.3
--- NOTE | 2020-02-20 11:42 | HMH.EDUTC ---
[facility] [place] Disposition Clinical Impression: Exposure to COVID-19 virus Disposition: Home, Self-Care Condition on Discharge: Good Instructions: Preventing the Spread of Coronavirus Discharge Instructions Additional Instructions: *Monitor Temp, Over the counter Motrin or Tylenol as directed/as needed Tylenol every 4 hours and Motrin every 6 hours (as long as your family doctor has told you that you can take it) for fever or pain. and straight to ER if unable to lower temp less than 101.0 after medication given *Warm salt water gargles may help to soothe the throat *Throat Lozenges *Warm fluids like tea with honey may help to soothe the throat *Sleep elevated *Humidifier/Vaporizer Follow up IMMEDIATELY for new or worsening symptoms or no Noticeable improvement over the next 48-72 hours. 911 for difficulty breathing or swallowing You was tested for today for COVID19 your test result should be back in the next 24-48 hours, you may call to the [facility] tomorrow to see if your test results are back and the result [phone] You was given a handout with instructions for Self Quarantine and Self isolation for while you wait on test results and what to do if they are positive If you are positive the Health Dept will be contacting you also Referrals: Ramana Linton MD [Primary Care Provider] - As needed Time of Disposition: 11:45 Medical Decision Making - Ernie Inquiry Pt receiving controlled substance: No Ernie was queried for this patient: No Vital Signs: 02/20/20 11:38 Temperature 98.2 F Temperature Source Oral Pulse Rate [Radial] 84 Respiratory Rate 18 Blood Pressure [Right Arm] 120/78 Blood Pressure Mean [Right Arm] 92 Blood Pressure Source [Right Arm] Automatic Cuff Blood Pressure Position [Right Arm] Sitting 02 Sat by Pulse Oximetry 98 Oxygen Delivery Method Room Air Orders (Tests/Meds): ORDERS Category Date Time Status Covid-19 Nasal PCR ([facility]) Routine Lab 02/20/20 11:10 Received [facility] [place] HPI - General Stated complaint: covid exposure Time Seen by Provider: 02/20/20 11:42 Mode of Arrival: Ambulatory Source of Information: Patient Limitations: No Limitations Description of Symptoms (Recalled from Triage Doc. by RN): covid test HEENT Symptoms (Recalled from RN notes): No Resp Symptoms (Recalled from RN notes): No Skin Symptoms (Recalled from RN notes): No MS Symptoms (Recalled from RN notes): No Functional Status (Recalled from RN notes): wnl - History of Present Illness Provider Complaint: Patient states that she took care of her grandson last week and found out today that he tested positive for COVID States that she has been on medication by her PCP due to infection and COPD states that she isnt having any symptoms that is out of the ordinary for her but unsure if she would know if she was because she has COPD and allergies so she wanted to get tested - Related Data Home Medications Medication Instructions Recorded Confirmed aspirin 81 mg tablet,delayed 81 mg PO QDAY 05/02/17 01/22/20 release rosuvastatin 40 mg tablet 40 mg PO HS tab 01/22/20 01/22/20 Previous Rx's Medication Instructions Recorded bupropion HCl 150 mg 24 hr tablet, 150 mg PO QAM #30 tab 08/06/17 extended release ketoconazole 200 mg tablet 200 mg PO DAILY #30 tab 11/28/17 multivit with min-folic 1 tab PO DAILY #90 tab 06/17/18 acid-lutein 400 mcg-250 mcg chewable tablet loperamide 2 mg tablet 2 mg PO Q4H #10 tab 01/26/19 fluticasone propionate 50 See Rx Instructions .ROUTE 02/12/19 mcg/actuation nasal .COMPLEX #16 gram spray,suspension fluticasone fur. 100 mcg-umeclid See Rx Instructions .ROUTE 02/19/19 62.5 mcg-vilant 25 mcg .COMPLEX #60 unspecified inhalat.powder losartan 100 See Rx Instructions .ROUTE 06/18/19 mg-hydrochlorothiazide 25 mg tablet .COMPLEX #15 tab montelukast 10 mg tablet 10 mg PO QPM #90 tab 06/19/19 famotidine 20 mg tablet 20 mg PO DAILY #90 tab 06/24/19 pantoprazole 40 mg tabl
[2020-02-20 11:51] VITALS: BP 120/78; PULSE 84; RESP 18; TEMP 36.8; O2SAT 98
== END 2020-02-20 11:51 | disposition home or self-care (01) ==
PROVIDERS: Emergency Provider Nurse Practitioner; PCP Emergency Medicine
DX: Z20.828 Contact with and (suspected) exposure to other viral communicable diseases (principal); J44.9 Chronic obstructive pulmonary disease, unspecified; K21.9 Gastro-esophageal reflux disease without esophagitis; G43.709 Chronic migraine without aura, not intractable, without status migrainosus; F33.1 Major depressive disorder, recurrent, moderate; I10 Essential (primary) hypertension; I25.10 Atherosclerotic heart disease of native coronary artery without angina pectoris; Z79.899 Other long term (current) drug therapy
CPT/HCPCS: G0463; 99201; U0003

== ENCOUNTER → 2020-07-04 14:14 | Outpatient (CLI) | payer MEDICARE, OTHER, SELFPAY ==
--- NOTE | 2020-07-04 14:17 | XR_ITS ---
PROCEDURE: XR RIBS RT MIN 3V W CXR1V CLINICAL INDICATION: right rib pain COMPARISON: No exams were available for comparison FINDINGS: Healing fracture of the right 6th rib is noted. Minor deformity of the right 10th rib is visualized, likely sequela of old injury. No other evidence of acute rib fractures. Bone density is normal. No lobar consolidation, pleural effusions or pneumothorax. Cardiac size and central pulmonary vasculature within normal limits. Calcified lymph nodes noted in the right paratracheal location. Few calcified granulomas are noted. IMPRESSION: Old fractures of the right 6th and 10th ribs. No acute fractures. Dictated by: Eugenie Alva 07/04/2020 15:20 Eugenie Alva in [place] 07/04/2020 15:20
== END ==
PROVIDERS: PCP Physician Assistant; Visit Provider Physician Assistant
DX: R07.81 Pleurodynia (principal)
CPT/HCPCS: 71101

== ENCOUNTER → 2020-08-19 13:05 | Outpatient (CLI) | payer MEDICARE, OTHER, SELFPAY ==
--- NOTE | 2020-08-19 13:05 | XR_ITS ---
PROCEDURE: XR DEXA AXIAL SKELETON CLINICAL HISTORY: compression fx, rib fx's COMPARISON: No exams were available for comparison FINDINGS: The right hip BMD is 0.590 with a T-score of -2.3. The left hip BMD is 0.690 with a T-score of -2.1. The lumbar spine BMD is 0.731 with a T-score of -2.9. IMPRESSION: This patient is considered osteoporotic according to the World Health Organization criteria. Fracture risk is high. Treatment is advised. Based on these results a follow-up exam is recommended in 1 year. Dictated by: Miguel Ángel George MD 08/22/2020 08:30 Miguel Ángel George MD in [place] 08/22/2020 08:30
== END ==
PROVIDERS: PCP Emergency Medicine; Visit Provider Physician Assistant
DX: S22.000A Wedge compression fracture of unspecified thoracic vertebra, initial encounter for closed fracture (principal)
CPT/HCPCS: 77080

== ENCOUNTER → 2020-09-22 14:11 | Outpatient (CLI) | payer MEDICARE, OTHER, SELFPAY | PROVIDERS: Visit Provider Nurse Practitioner Family | DX: N39.0 Urinary tract infection, site not specified (principal); N39.3 Stress incontinence (female) (male) | CPT/HCPCS: 87086; 87088; 87186 ==

== ENCOUNTER → 2020-10-11 18:37 | Outpatient (CLI) | payer MEDICARE, OTHER, SELFPAY | PROVIDERS: Visit Provider Nurse Practitioner Family | DX: N39.0 Urinary tract infection, site not specified (principal); N39.3 Stress incontinence (female) (male) | CPT/HCPCS: 87086 ==

== ENCOUNTER → 2020-11-09 13:45 | Outpatient (CLI) | payer MEDICARE, OTHER, SELFPAY ==
[2020-11-09 13:53] LABS: Adenovirus F 40/41, stool Not Detected (NotDetected); Astrovirus Not Detected (NotDetected); Campylobacter Not Detected (NotDetected); Clostridium Difficile A/B, PCR Not Detected (NotDetected); Cryptosporidium Not Detected (NotDetected); Cyclospora Cayetanesis Not Detected (NotDetected); Entamoeba histolytica Not Detected (NotDetected); Enteroaggregative E coli Not Detected (NotDetected); Enteropathogenic E coli Not Detected (NotDetected); Enterotoxigenic E coli Not Detected (NotDetected); Giardia lamblia Not Detected (NotDetected); Norovirus Not Detected (NotDetected); Plesimonas Shigalloides, PCR Not Detected (NotDetected); Rotavirus A Not Detected (NotDetected); Salmonella, PCR Not Detected (NotDetected); Sapovirus Not Detected (NotDetected); Shiga-like toxin E coli Not Detected (NotDetected); Shigella Enterovasive E coli Not Detected (NotDetected); Vibrio Cholerae Not Detected (NotDetected); Vibrio, PCR Not Detected (NotDetected); Yersinia Entercolitica, PCR Not Detected (NotDetected)
== END ==
PROVIDERS: Visit Provider Nurse Practitioner Family
DX: R19.7 Diarrhea, unspecified (principal)
CPT/HCPCS: 87506

== ENCOUNTER → 2020-11-14 14:57 | Outpatient (CLI) | payer MEDICARE, OTHER, SELFPAY ==
[2020-11-14 15:00] LABS: Microscopic, Urine URINE MICROSCOPIC (MICROSCOPIC)
[2020-11-14 15:09] LABS: Appearance,Urine SL CLOUDY (Clear); Bilirubin,Urine Negative (Negative); Blood, Urine 1+ (Negative); Color,Urine STRAW (Yellow); Glucose,Urine (UA) Negative (Negative); Ketones,Urine Negative (Negative); Leukocyte Esterase,Urine Negative (Negative); Nitrate,Urine Negative (Negative); PH,Urine 6.5 (5.0-8.5); Protein,Urine Negative (Negative); Specific Gravity, Urine <= 1.005 (1.005-1.030); Urobilinogen,Urine 0.2 EU/dl (0.2)
[2020-11-14 15:22] LABS: Bacteria,Urine 1+ /lpf
== END ==
PROVIDERS: Visit Provider Emergency Medicine
DX: R30.0 Dysuria (principal)
CPT/HCPCS: 81001

== ENCOUNTER → 2020-11-16 08:00 | Outpatient (CLI) | payer MEDICARE, OTHER, SELFPAY ==
[2020-11-17 14:42] LABS: Adenovirus F 40/41, stool Not Detected (NotDetected); Astrovirus Not Detected (NotDetected); Campylobacter Not Detected (NotDetected); Clostridium Difficile A/B, PCR Not Detected (NotDetected); Cryptosporidium Not Detected (NotDetected); Cyclospora Cayetanesis Not Detected (NotDetected); Entamoeba histolytica Not Detected (NotDetected); Enteroaggregative E coli Not Detected (NotDetected); Enteropathogenic E coli Not Detected (NotDetected); Enterotoxigenic E coli Not Detected (NotDetected); Giardia lamblia Not Detected (NotDetected); Norovirus Not Detected (NotDetected); Plesimonas Shigalloides, PCR Not Detected (NotDetected); Rotavirus A Not Detected (NotDetected); Salmonella, PCR Not Detected (NotDetected); Sapovirus Not Detected (NotDetected); Shiga-like toxin E coli Not Detected (NotDetected); Shigella Enterovasive E coli Not Detected (NotDetected); Vibrio Cholerae Not Detected (NotDetected); Vibrio, PCR Not Detected (NotDetected); Yersinia Entercolitica, PCR Not Detected (NotDetected)
== END ==
PROVIDERS: Visit Provider Nurse Practitioner Family
DX: R19.7 Diarrhea, unspecified (principal)
CPT/HCPCS: 87506

== ENCOUNTER → 2020-12-01 17:51 | Outpatient (CLI) | payer MEDICARE, OTHER, SELFPAY | PROVIDERS: Visit Provider Emergency Medicine | DX: R82.90 Unspecified abnormal findings in urine (principal) | CPT/HCPCS: 87086 ==

== ENCOUNTER 2020-12-15 13:07 | Emergency (ER) | payer MEDICARE, OTHER, SELFPAY ==
[2020-12-15 14:30] VITALS: BP 113/51; PULSE 73; RESP 18; TEMP 36.2; O2SAT 97; BMI 34.0
--- NOTE | 2020-12-15 15:04 | HMH.EDUTC ---
[facility] [place] Clinical Impression: Side pain Disposition: Home, Self-Care Condition on Discharge: Good Instructions: Muscle Strain Additional Instructions: Make sure to follow up with your Family Doctor as scheduled for further evaluation Return if needed Straight to ER if any life threatening symptoms, worsening of pain or abdominal pain Referrals: Ramana Linton MD [Primary Care Provider] - Time of Disposition: 15:53 Medical Decision Making - Ernie Inquiry Pt receiving controlled substance: No Ernie was queried for this patient: No Vital Signs: 12/15/20 14:30 Temperature 97.2 F L Temperature Source Oral Pulse Rate [Right Brachial] 73 Respiratory Rate 18 Blood Pressure [Right Arm] 113/51 L Blood Pressure Mean [Right Arm] 71 Blood Pressure Source [Right Arm] Automatic Cuff Blood Pressure Position [Right Arm] Sitting 02 Sat by Pulse Oximetry 97 Oxygen Delivery Method Room Air - Lab Data Lab Results 12/15/20 15:13: Urine Color Yellow, Urine Appearance Clear, Urine pH 6.5, Ur Specific Cades 1.010, Urine Protein Negative, Urine Glucose (UA) Negative, Urine Ketones Negative, Urine Blood Trace, Urine Nitrate Negative, Urine Bilirubin Negative, Urine Urobilinogen 0.2, Ur Leukocyte Esterase Negative Orders (Tests/Meds): ORDERS Category Date Time Status XR ribs LT min 3V w CXR1V Stat Exams 12/15/20 15:10 Taken - Radiology Data #1 Image(s): Other (left ribs) Image Reviewed: Yes I have reviewed radiologist's interpretation No acute findings. Medical Decision Narrative: Discussed with patient about transfer to the ED for CT or further work up and evaluation due to pain in left side/abdomen area and she declined State that she is suppose to get xrays done today on her right ribs and she would follow up with her PCP tomorrow Patient advised to make sure that she goes straight from leaving the [facility] and get the ordered xrays from her PCP if she would have mentioned it it could have been done here in the [facility] Again discussed about transfer and patient declined [facility]PI - General Stated complaint: lt side abdominal/back pain Time Seen by Provider: 12/15/20 15:05 Mode of Arrival: Ambulatory Source of Information: Patient Limitations: No Limitations Description of Symptoms (Recalled from Triage Doc. by RN): PATIENT C/O LEFT FLANK AND LEFT-SIDED ABDOMINAL PAIN THAT STARTED LAST NIGHT HEENT Symptoms (Recalled from RN notes): No Resp Symptoms (Recalled from RN notes): No Skin Symptoms (Recalled from RN notes): No MS Symptoms (Recalled from RN notes): No Functional Status (Recalled from RN notes): WNL - History of Present Illness Provider Complaint: Patient state that she is not sure if she slept wrong and broke a rib or may have pulled something in her left lower rib area State that she has been having pain and tender when she touches it on her left lower ribs from her back to the front of abdomen States that she didnt notice any bruising States that she also wants to get her urine checked she has been having problems with UTI and noticed she was having some burning again with pressure at times - Related Data Home Medications Medication Instructions Recorded Confirmed aspirin 81 mg tablet,delayed 81 mg PO QDAY 05/02/17 11/14/20 release rosuvastatin 40 mg tablet 40 mg PO HS tab 01/22/20 11/14/20 Previous Rx's Medication Instructions Recorded multivit with min-folic 1 tab PO DAILY #90 tab 06/17/18 acid-lutein 400 mcg-250 mcg chewable tablet fluticasone fur. 100 mcg-umeclid See Rx Instructions .ROUTE 02/19/19 62.5 mcg-vilant 25 mcg .COMPLEX #60 unspecified inhalat.powder prasugrel 10 mg tablet 10 mg PO QDAY #90 tab 09/09/19 budesonide 0.25 mg/2 mL suspension 0.25 mg INHALATION BID #60 ml 03/30/20 for nebulization ipratropium 0.5 mg-albuterol 3 mg 3 ml INHALATION QID PRN #120 vial 03/30/20 (2.5 mg base)/3 mL nebulization soln simethicone 80 mg chewable tablet Se
--- NOTE | 2020-12-15 15:10 | XR_ITS ---
PROCEDURE: XR RIBS LT MIN 3V W CXR1V CLINICAL INDICATION: LEFT SIDE PAIN COMPARISON: CR Chest from 10/01/2018 CR XR RIBS RT MIN 3V W CXR1V from 10/07/2019 CR XR RIBS RT MIN 3V W CXR1V from 07/04/2020 FINDINGS: Unremarkable cardiovascular structures. Calcified right paratracheal node is present and there is a calcified lymph node in the right midlung. Calcified granuloma is present in the right upper lobe. Multiple views of the left ribs show no obvious fracture or dislocation. No lytic or blastic change. IMPRESSION: No acute findings. Dictated by: Miguel Ángel George MD 12/15/2020 15:38 Miguel Ángel George MD in [place] 12/15/2020 15:38
[2020-12-15 15:14] LABS: Apearance,Urine Clear (Clear); Bilirubin,Urine Negative (Negative); Blood, Urine Trace (Negative); Color,Urine Yellow (Yellow); Glucose,Urine (UA) Negative (Negative); Ketones,Urine Negative (Negative); PH,Urine 6.5 (5.0-8.5); Protein,Urine Negative (Negative); UTC Leukocyte Esterase,Urine Negative (Negative); UTC Nitrate,Urine Negative (Negative); Urobilinogen,Urine 0.2 EU/dl (0.2)
[2020-12-15 16:00] VITALS: BP 113/51; PULSE 73; RESP 18; TEMP 36.2; O2SAT 97
== END 2020-12-15 16:03 | disposition home or self-care (01) ==
PROVIDERS: Emergency Provider Nurse Practitioner; PCP Emergency Medicine
DX: R10.12 Left upper quadrant pain (principal); R07.89 Other chest pain; E78.5 Hyperlipidemia, unspecified; I10 Essential (primary) hypertension; K21.9 Gastro-esophageal reflux disease without esophagitis; I25.10 Atherosclerotic heart disease of native coronary artery without angina pectoris; J44.9 Chronic obstructive pulmonary disease, unspecified; E03.9 Hypothyroidism, unspecified; Z88.8 Allergy status to other drugs, medicaments and biological substances; Z87.891 Personal history of nicotine dependence
CPT/HCPCS: G0463; 71101; 81001; 81003; 99202

== ENCOUNTER → 2020-12-15 16:12 | Outpatient (CLI) | payer MEDICARE, OTHER, SELFPAY ==
[2020-12-15 16:15] LABS: Microscopic, Urine URINE MICROSCOPIC (MICROSCOPIC)
[2020-12-15 19:53] LABS: Appearance,Urine CLEAR (Clear); Bilirubin,Urine Negative (Negative); Blood, Urine 1+ (Negative); Color,Urine YELLOW (Yellow); Glucose,Urine (UA) Negative (Negative); Ketones,Urine Negative (Negative); Leukocyte Esterase,Urine Negative (Negative); Nitrate,Urine Negative (Negative); Protein,Urine Negative (Negative); Urobilinogen,Urine 0.2 EU/dl (0.2)
[2020-12-15 20:31] LABS: RBC,Urine Occasional #/hpf (0-3); Squamous Epithelial Cell,Urine Occasional #/hpf (0-5); WBC,Urine Occasional #/hpf (0-3)
== END ==
PROVIDERS: Visit Provider Physician Assistant
DX: N39.0 Urinary tract infection, site not specified (principal)
CPT/HCPCS: 81001

== ENCOUNTER → 2020-12-21 13:49 | Outpatient (CLI) | payer MEDICARE, OTHER, SELFPAY ==
[2020-12-21 13:51] LABS: Adenovirus,PCR Not Detected (NotDetected); Bordetella Pertussis Not Detected (NotDetected); Chlamydophila Pneumoniae, PCR Not Detected (NotDetected); Coronavirus 19, PCR Not Detected (NotDetected); Coronavirus 229E Not Detected (NotDetected); Coronavirus NL63 Not Detected (NotDetected); Coronavirus OC43 Not Detected (NotDetected); Coronovirus HKU1,PCR Not Detected (NotDetected); Human Metapneumovirus Not Detected (NotDetected); Influenza A, PCR Not Detected (NotDetected); Influenza AH1, 2009 Not Detected (NotDetected); Influenza AH1, PCR Not Detected (NotDetected); Influenza AH3,PCR Not Detected (NotDetected); Influenza B, PCR Not Detected (NotDetected); Mycoplasma Pneumoniae, PCR Not Detected (NotDetected); Parainfluenza 1, PCR Not Detected (NotDetected); Parainfluenza 2, PCR Not Detected (NotDetected); Parainfluenza 3, PCR Not Detected (NotDetected); Parainfluenza 4, PCR Not Detected (NotDetected); Respiratory Syncytial Virus Not Detected (NotDetected); Rhinovirus/Enterovirus Not Detected (NotDetected)
== END ==
PROVIDERS: Visit Provider Physician Assistant
DX: R05 Cough (principal); R69 Illness, unspecified
CPT/HCPCS: 87581; 87633; 87798

== ENCOUNTER → 2021-01-09 12:58 | Outpatient (CLI) | payer MEDICARE, OTHER, SELFPAY ==
--- NOTE | 2021-01-09 13:03 | XR_ITS ---
PROCEDURE: XR RIBS RT MIN 3V W CXR1V CLINICAL INDICATION: pain COMPARISON: CR XR RIBS RT MIN 3V W CXR1V from 10/07/2019 CR XR RIBS RT MIN 3V W CXR1V from 07/04/2020 CR XR RIBS LT MIN 3V W CXR1V from 12/15/2020 FINDINGS: Frontal view of the chest shows evidence of old granulomatous disease with prominent right azygos lymph nodes and calcified granulomas on the right. No evidence of pneumothorax. Three views of the right ribs show no obvious displaced fracture. IMPRESSION: No acute findings. Dictated by: Miguel Ángel George MD 01/09/2021 17:36 Miguel Ángel George MD in [place] 01/09/2021 17:36
== END ==
PROVIDERS: PCP Emergency Medicine; Visit Provider Nurse Practitioner Family
DX: R10.9 Unspecified abdominal pain (principal); R07.81 Pleurodynia
CPT/HCPCS: 71101

== ENCOUNTER → 2021-02-01 18:44 | Outpatient (CLI) | payer MEDICARE, OTHER, SELFPAY ==
[2021-02-01 18:47] LABS: Adenovirus,PCR Not Detected (NotDetected); Bordetella Pertussis Not Detected (NotDetected); Chlamydophila Pneumoniae, PCR Not Detected (NotDetected); Coronavirus 19, PCR Not Detected (NotDetected); Coronavirus 229E Not Detected (NotDetected); Coronavirus NL63 Not Detected (NotDetected); Coronavirus OC43 Not Detected (NotDetected); Coronovirus HKU1,PCR Not Detected (NotDetected); Human Metapneumovirus Not Detected (NotDetected); Influenza A, PCR Not Detected (NotDetected); Influenza AH1, 2009 Not Detected (NotDetected); Influenza AH1, PCR Not Detected (NotDetected); Influenza AH3,PCR Not Detected (NotDetected); Influenza B, PCR Not Detected (NotDetected); Mycoplasma Pneumoniae, PCR Not Detected (NotDetected); Parainfluenza 1, PCR Not Detected (NotDetected); Parainfluenza 2, PCR Not Detected (NotDetected); Parainfluenza 3, PCR Not Detected (NotDetected); Parainfluenza 4, PCR Not Detected (NotDetected); Respiratory Syncytial Virus Not Detected (NotDetected); Rhinovirus/Enterovirus Not Detected (NotDetected)
== END ==
PROVIDERS: Visit Provider Physician Assistant
DX: J32.9 Chronic sinusitis, unspecified (principal); Z20.822 Contact with and (suspected) exposure to COVID-19
CPT/HCPCS: 87486; 87581; 87632; 87798; C9803; U0003; U0005

== ENCOUNTER → 2021-02-28 12:34 | Outpatient (CLI) | payer MEDICARE, OTHER, SELFPAY ==
--- NOTE | 2021-02-28 12:36 | CT_ITS ---
PROCEDURE: CT CHEST WO CON CLINICAL INDICATION: chest pain COMPARISON: CR CXR CHEST(2 VIEWS-NOT PORTABLE) from 11/06/2014 TECHNIQUE: Axial images obtained with sagittal and coronal reformats. All CT scans at the facility use one or more dose reduction, viz: automated exposure control, ma/kV adjustment per patient size (including targeted exams where dose is matched to indication, i.e. head), or iterative reconstruction technique. FINDINGS: HEART AND MEDIASTINAL STRUCTURES: Prominent calcified nodes are present in the right anterior and paratracheal region. Coronary artery calcifications. LUNGS AND PLEURAL SPACES: COPD with centrilobular emphysema. Scattered calcified granulomas. Noncalcified 5 mm nodule right middle lobe. Noncalcified 3 mm nodule right lower lobe. Noncalcified 4 mm nodule right upper lobe. 2 mm noncalcified nodule in the lingula. Faint 6 mm opacity also in the lingula inferiorly nonspecific. These annotated on the images BONY STRUCTURES: Multilevel thoracic spondylosis. Mild wedge compression changes are present at T3, T4,, T8. These are age indeterminate. No retropulsion. UPPER ABDOMEN: Incompletely imaged hypodensity lower pole right kidney at 1.3 cm possibly related to a cyst. ADDITIONAL FINDINGS: Few scattered small axillary nodes. IMPRESSION: Old granulomatous disease with COPD/centrilobular emphysema. Scattered noncalcified nodules the largest in the lingula at approximately 6 mm. Probably benign. Suggest six-month follow-up to confirm stability. Mild wedge compression changes of the thoracic spine age indeterminate Dictated by: Miguel Ángel George MD 03/01/2021 13:53 Miguel Ángel George MD in [place] 03/01/2021 13:53
== END ==
PROVIDERS: PCP Emergency Medicine; Visit Provider Nurse Practitioner Family
DX: R07.9 Chest pain, unspecified (principal)
CPT/HCPCS: 71250

== ENCOUNTER → 2021-05-26 16:00 | Outpatient (CLI) | payer MEDICARE, OTHER, SELFPAY | PROVIDERS: Visit Provider Nurse Practitioner Family | DX: N39.0 Urinary tract infection, site not specified (principal) | CPT/HCPCS: 87086 ==

== ENCOUNTER → 2021-06-13 11:55 | Outpatient (CLI) | payer MEDICARE, OTHER, SELFPAY | PROVIDERS: Visit Provider Nurse Practitioner Family | DX: N39.0 Urinary tract infection, site not specified (principal) | CPT/HCPCS: 87086 ==

== ENCOUNTER 2021-07-27 17:01 | Emergency (ER) | payer MEDICARE, OTHER, SELFPAY ==
[2021-07-27 17:02] VITALS: BP 122/88; PULSE 73; RESP 18; TEMP 36.7; O2SAT 96; BMI 35.4
--- NOTE | 2021-07-27 17:27 | XR_ITS ---
PROCEDURE INFORMATION: Exam: XR Lumbosacral Spine Exam date and time: 07/27/2021 5:25 PM Age: 66 years old Clinical indication: Low back pain TECHNIQUE: Imaging protocol: XR of the lumbosacral spine. Views: 4 or 5 views. COMPARISON: ABDPELW CT ABD PELVIS W/ CONTRAST 10/03/2016 2:29 PM FINDINGS: Bones/joints: Multilevel facet joint arthropathy. No acute fracture. Normal alignment. Soft tissues: Arthrosclerotic calcifications in the aorta. IMPRESSION: No acute findings.
--- NOTE | 2021-07-27 17:27 | HMH.EDUTC ---
[facility] [place] Disposition Clinical Impression: Low back pain Qualifiers: Chronicity: unspecified Back pain laterality: midline Sciatica presence: without sciatica Qualified Code(s): M54.50 - Low back pain, unspecified Disposition: Home, Self-Care Condition on Discharge: Good Instructions: DI for Low Back Pain, Methocarbamol Additional Instructions: *Ibuprofen uriel 8 hours with meal as needed for pain/inflammation *Not additional anti-inflammatory like motrin, aleve, advil with the above amount of ibuprofen. You can still take Tylenol every 4 hours as needed if you need something else for pain *Ice 20 minutes every 2 hours for the first 48 hours after the initial injury followed by moist heat every 20 minutes 3-4 times a day to affected area *Muscle relaxer every 12 hours as needed for muscle spasms but remember, it WILL cause drowsiness You cannot take it and drive, operate machinery or care for small children. *Keep this area active, no movement leads to more stiffness, However take it easy and avoid heavy lifting pushing or pulling *Follow up with you family doctor if no improvement for further treatment Prescriptions: methocarbamoL [Methocarbamol 500mg Tablet] 500 mg PO BID #10 tab Transmission Status: Pending to [facility] Referrals: Ramana Linton MD [Primary Care Provider] - As needed Time of Disposition: 18:18 Medical Decision Making - Ernie Inquiry Pt receiving controlled substance: No Ernie was queried for this patient: No Vital Signs: 07/27/21 17:02 Temperature 98.0 F Temperature Source Oral Pulse Rate [Left Radial] 73 Respiratory Rate 18 Blood Pressure [Right Arm] 122/88 Blood Pressure Mean [Right Arm] 99 02 Sat by Pulse Oximetry 96 Oxygen Delivery Method Room Air Orders (Tests/Meds): ORDERS Category Date Time Status XR lumbar spine min 4V Stat Exams 07/27/21 17:27 Taken - Radiology Data #1 Image(s): L-Spine Image Reviewed: Yes I have reviewed radiologist's interpretation IMPRESSION: No acute findings. Medical Decision Narrative: medications discussed with pharmacy [facility] [place] HPI - General Stated complaint: back pain Time Seen by Provider: 07/27/21 17:27 Mode of Arrival: Wheelchair Source of Information: Patient Limitations: No Limitations Description of Symptoms (Recalled from Triage Doc. by RN): CHRONIC BACK PAIN THAT FEELS WORSE TODAY HEENT Symptoms (Recalled from RN notes): No Resp Symptoms (Recalled from RN notes): No Skin Symptoms (Recalled from RN notes): No MS Symptoms (Recalled from RN notes): Yes Functional Status (Recalled from RN notes): N/A - History of Present Illness Provider Complaint: Patient states that she has chronic back problems States that she was feeling ok earlier and she was working around the house and thinks she may have over done it States that her back pain started and would hurt when she would move or try to bend over Denies falling and denies loss of control of bowel or bladder and denies new injury - Related Data Home Medications Medication Instructions Recorded Confirmed aspirin 81 mg tablet,delayed 81 mg PO QDAY 05/02/17 05/26/21 release dextromethorphan-guaifenesin 10 5 ml PO ml 06/13/21 06/13/21 mg-100 mg/5 mL oral syrup Previous Rx's Medication Instructions Recorded fluticasone fur. 100 mcg-umeclid See Rx Instructions .ROUTE 02/19/19 62.5 mcg-vilant 25 mcg .COMPLEX #60 unspecified inhalat.powder betamethasone dipropionate 0.05 % 1 applic TOPICAL BID PRN #15 g 08/24/20 topical cream nystatin 100,000 unit/gram topical 1 applic TOPICAL BID #30 g 08/25/20 cream denosumab 60 mg/mL subcutaneous 60 mg SQ [id number] #1 ml 09/12/20 syringe famotidine 20 mg tablet See Rx Instructions .ROUTE 10/25/20 .COMPLEX #90 tab fluticasone propionate 50 See Rx Instructions .ROUTE 11/04/20 mcg/actuation nasal .COMPLEX #16 gram spray,suspension montelukast 10 mg tablet 10 mg PO QDAY 90 Days #90 tab
--- NOTE | 2021-07-27 18:13 | PC.NURSE ---
PT REFUSES IM INJECTIONS.
[2021-07-27 18:35] VITALS: BP 122/88; PULSE 73; RESP 18; TEMP 36.7; O2SAT 97
== END 2021-07-27 18:38 | disposition home or self-care (01) ==
PROVIDERS: Emergency Provider Nurse Practitioner; PCP Emergency Medicine
DX: M54.50 Low back pain, unspecified (principal); H92.09 Otalgia, unspecified ear; I10 Essential (primary) hypertension; I25.10 Atherosclerotic heart disease of native coronary artery without angina pectoris; R01.1 Cardiac murmur, unspecified; K21.9 Gastro-esophageal reflux disease without esophagitis; E78.5 Hyperlipidemia, unspecified; E03.9 Hypothyroidism, unspecified; G89.29 Other chronic pain; M19.90 Unspecified osteoarthritis, unspecified site; G43.909 Migraine, unspecified, not intractable, without status migrainosus; J44.9 Chronic obstructive pulmonary disease, unspecified; F32.A Depression, unspecified; Z79.51 Long term (current) use of inhaled steroids; Z79.02 Long term (current) use of antithrombotics/antiplatelets; Z79.899 Other long term (current) drug therapy; Z88.0 Allergy status to penicillin; Z88.1 Allergy status to other antibiotic agents; Z88.3 Allergy status to other anti-infective agents; Z88.5 Allergy status to narcotic agent; Z88.6 Allergy status to analgesic agent; Z91.041 Radiographic dye allergy status; Z87.891 Personal history of nicotine dependence; Z84.1 Family history of disorders of kidney and ureter
CPT/HCPCS: 72110; 99213; G0463

== ENCOUNTER 2021-11-29 09:00 | Emergency (ER) | payer MEDICARE, OTHER, SELFPAY ==
[2021-11-29 11:10] LABS: UTC Strep Screen (Rapid) Negative (Negative)
[2021-11-29 11:11] VITALS: BP 141/82; PULSE 75; RESP 16; TEMP 36.7; O2SAT 98; BMI 33.9
--- NOTE | 2021-11-29 11:22 | EXP.UTC ---
Discharge Plan Disposition Patient Disposition: Home, Self-Care Condition: Good Prescriptions Prescriptions: New azithromycin 250 mg tablet See Rx Instructions .ROUTE .COMPLEX Qty: 6 0RF Rx Instructions: For 250 mg dose pack: take 500 mg today (day 1), then 250 mg for 4 days (days 2-5) No Action aspirin [Aspir-81] 81 mg tablet,delayed release (DR/EC) 81 mg PO QDAY fluticasone propionate 50 mcg/actuation spray,suspension See Rx Instructions .ROUTE .COMPLEX Qty: 16 2RF Dose Instruction: USE 1 SPRAY INTO EACH NOSTRIL 2 TIMES A DAY Rx Instructions: USE 1 SPRAY INTO EACH NOSTRIL 2 TIMES A DAY montelukast [Singulair] 10 mg tablet 10 mg PO QDAY 90 Days Qty: 90 3RF dextromethorphan-guaifenesin [Tussin DM] 10-100 mg/5 mL syrup 5 ml PO nystatin 100,000 unit/gram powder 1 applic TOPICAL TID Qty: 30 1RF fluconazole [Diflucan] 150 mg tablet 150 mg PO DAILY 5 Days Qty: 5 0RF betamethasone dipropionate 0.05 % cream 1 applic TOPICAL BID PRN (Reason: rash) Qty: 15 1RF cephalexin 500 mg capsule 500 mg PO BID 10 Days Qty: 20 0RF hydrocodone-acetaminophen 5-325 mg tablet 1 tab PO BID PRN (Reason: pain) Qty: 60 0RF zsetzxiayxe-yvmnudkks-pnbkxity [Trelegy Ellipta] 100-62.5-25 mcg blister with device See Rx Instructions .ROUTE .COMPLEX Qty: 60 2RF Dose Instruction: INHALE 1 PUFF BY MOUTH EVERY DAY Rx Instructions: INHALE 1 PUFF BY MOUTH EVERY DAY nystatin 100,000 unit/gram cream 1 applic TOPICAL BID Qty: 30 2RF Prolia 60 mg/mL syringe 60 mg SQ [id number] Qty: 1 1RF simethicone [Gas Relief 80 (simethicone)] 80 mg tablet,chewable See Rx Instructions .ROUTE .COMPLEX Qty: 90 0RF Dose Instruction: CHEW 1 TABLET BY MOUTH 3 TIMES A DAY Rx Instructions: CHEW 1 TABLET BY MOUTH 3 TIMES A DAY pantoprazole 40 mg tablet,delayed release (DR/EC) 40 mg PO DAILY Qty: 90 3RF calcium carbonate-vitamin D3 [Calcium 600 + D(3)] 600 mg(1,500mg) -400 unit tablet 1 tab PO DAILY Qty: 90 3RF budesonide 0.25 mg/2 mL suspension for nebulization See Rx Instructions .ROUTE .COMPLEX Qty: 60 0RF Dose Instruction: USE 2 ML IN NEBULIZER TWICE DAILY Rx Instructions: USE 2 ML IN NEBULIZER TWICE DAILY albuterol sulfate 90 mcg/actuation HFA aerosol inhaler See Rx Instructions .ROUTE .COMPLEX Qty: 9 0RF Dose Instruction: INHALE 2 PUFFS BY MOUTH EVERY 6 HOURS NEEDED FOR SHORTNESS OF BREATH Rx Instructions: INHALE 2 PUFFS BY MOUTH EVERY 6 HOURS NEEDED FOR SHORTNESS OF BREATH ipratropium-albuterol 0.5 mg-3 mg(2.5 mg base)/3 mL solution for nebulization See Rx Instructions .ROUTE .COMPLEX Qty: 360 0RF Dose Instruction: USE 1 AMPULE IN NEBULIZER 4 TIMES DAILY NEEDED FOR SHORTNESS OF BREATH OR WHEEZING Rx Instructions: USE 1 AMPULE IN NEBULIZER 4 TIMES DAILY NEEDED FOR SHORTNESS OF BREATH OR WHEEZING clopidogrel [Plavix] 75 mg tablet 75 mg PO QDAY Qty: 30 5RF famotidine 20 mg tablet See Rx Instructions .ROUTE .COMPLEX Qty: 30 3RF Dose Instruction: TAKE 1 TABLET BY MOUTH EVERY DAY FOR STOMACH Rx Instructions: TAKE 1 TABLET BY MOUTH EVERY DAY FOR STOMACH atenolol 25 mg tablet See Rx Instructions .ROUTE .COMPLEX Qty: 30 2RF Dose Instruction: TAKE ONE TABLET BY MOUTH EVERY MORNING FOR BLOOD PRESSURE Rx Instructions: TAKE ONE TABLET BY MOUTH EVERY MORNING FOR BLOOD PRESSURE rosuvastatin 40 mg tablet See Rx Instructions .ROUTE .COMPLEX Qty: 90 3RF Dose Instruction: TAKE ONE TABLET BY MOUTH ONCE A DAY FOR CHOLESTEROL Rx Instructions: TAKE ONE TABLET BY MOUTH ONCE A DAY FOR CHOLESTEROL prasugrel 10 mg tablet See Rx Instructions .ROUTE .COMPLEX Qty: 90 3RF Dose Instruction: TAKE ONE TABLET BY MOUTH ONCE A DAY FOR BLOOD THINNER Rx Instructions: TAKE ONE TABLET BY MOUTH ONCE A DAY FOR BLOOD THINNER losartan-hy
[2021-11-29 11:46] VITALS: BP 141/82; PULSE 75; RESP 16; TEMP 36.7
[2021-11-29 13:03] LABS: Adenovirus,PCR Not Detected (NotDetected); Bordetella Pertussis Not Detected (NotDetected); Chlamydophila Pneumoniae, PCR Not Detected (NotDetected); Coronavirus 229E Not Detected (NotDetected); Coronavirus NL63 Not Detected (NotDetected); Coronavirus OC43 Not Detected (NotDetected); Coronovirus HKU1,PCR Not Detected (NotDetected); Human Metapneumovirus Not Detected (NotDetected); Influenza A, PCR Not Detected (NotDetected); Influenza AH1, 2009 Not Detected (NotDetected); Influenza AH1, PCR Not Detected (NotDetected); Influenza AH3,PCR Not Detected (NotDetected); Influenza B, PCR Not Detected (NotDetected); Mycoplasma Pneumoniae, PCR Not Detected (NotDetected); Parainfluenza 1, PCR Not Detected (NotDetected); Parainfluenza 2, PCR Not Detected (NotDetected); Parainfluenza 3, PCR Not Detected (NotDetected); Parainfluenza 4, PCR Not Detected (NotDetected); Respiratory Syncytial Virus Not Detected (NotDetected); Rhinovirus/Enterovirus Not Detected (NotDetected)
== END 2021-11-29 11:46 | disposition home or self-care (01) ==
PROVIDERS: Emergency Provider Nurse Practitioner; PCP Emergency Medicine
DX: J32.9 Chronic sinusitis, unspecified (principal); J02.9 Acute pharyngitis, unspecified; J44.9 Chronic obstructive pulmonary disease, unspecified; Z87.891 Personal history of nicotine dependence; Z20.822 Contact with and (suspected) exposure to COVID-19
CPT/HCPCS: 87486; 87581; 87632; 87798; 87880; 99212; C9803; G0463; U0003; U0005

== ENCOUNTER → 2021-12-06 12:35 | Outpatient (CLI) | payer MEDICARE, OTHER, SELFPAY ==
--- NOTE | 2021-12-06 12:45 | XR_ITS ---
FINAL REPORT CLINICAL HISTORY: left ankle pain..FALL TODAY AND TWISTED ANKLE...PT RETURNING TO OFFICE FINDINGS: 2 views of the left ankle were obtained. There is is a nondisplaced transverse fracture of the proximal 5th metatarsal. The joint spaces appear intact. There is no soft tissue abnormality. IMPRESSION: Proximal 5th metatarsal fracture. Reviewed, Interpreted and Dictated by Kain Orozco III, MD Transcribed by Scott Paula Authenticated and [facility]
--- NOTE | 2021-12-06 13:02 | XR_ITS ---
FINAL REPORT CLINICAL HISTORY: LT FOOT PAIN..FALL AND TWISTED ANKLE..KNOT ON LAT SIDE OF FOOT...PT RETURNING TO OFFICE FINDINGS: 2 views of the left foot were obtained. There is nondisplaced fracture of the proximal 5th metatarsal. There are mild degenerative changes. There is no soft tissue abnormality. IMPRESSION: Nondisplaced fracture of the proximal 5th metatarsal. Reviewed, Interpreted and Dictated by Kain Orozco III, MD Transcribed by Scott Paula Authenticated and . [facility]
== END ==
PROVIDERS: PCP Emergency Medicine; Visit Provider Emergency Medicine
DX: M25.572 Pain in left ankle and joints of left foot (principal)
CPT/HCPCS: 73600; 73620

== ENCOUNTER 2021-12-07 08:37 | Outpatient (RCR) | payer MEDICARE, OTHER, SELFPAY | END 2021-12-07 09:40 | disposition home or self-care (01) | LOC: PT 08:37 | PROVIDERS: Visit Provider Emergency Medicine | DX: S92.812D Other fracture of left foot, subsequent encounter for fracture with routine healing (principal) | CPT/HCPCS: 97760 ==

== ENCOUNTER → 2022-01-03 13:38 | Outpatient (CLI) | payer MEDICARE, OTHER, SELFPAY ==
--- NOTE | 2022-01-03 13:46 | XR_ITS ---
FINAL REPORT CLINICAL HISTORY: Foot Pain COMPARISON: December 06, 2021 FINDINGS: LEFT FOOT Three views of the left foot demonstrate a known 5th metatarsal fracture which is partially obscured by a cast however no displacement is seen. No new abnormality is identified. The visualized joint spaces are normally aligned. The joint spaces are preserved. The soft tissues are unremarkable. IMPRESSION: 5th metatarsal fracture. No new abnormality identified. Reviewed, Interpreted and Dictated by Johan Ayala MD Transcribed by Georgette Marsh Authenticated and [facility]
== END ==
PROVIDERS: PCP Emergency Medicine; Visit Provider Podiatrist
DX: M79.672 Pain in left foot (principal)
CPT/HCPCS: 73630

== ENCOUNTER → 2022-03-07 10:15 | Outpatient (CLI) | payer MEDICARE, OTHER, SELFPAY ==
--- NOTE | 2022-03-07 10:21 | XR_ITS ---
FINAL REPORT CLINICAL HISTORY: left 5th met fracture follow-up,,broke in sept COMPARISON: 01/03/2022 FINDINGS: Left foot Three views were obtained. There is a subtle healing fracture of the base of the 5th metatarsal. The cast has been removed. IMPRESSION: Healing fracture as above. Reviewed, Interpreted and Dictated by Brendan Alatorre MD Transcribed by Yolande Mcgill Authenticated and [facility]
== END ==
PROVIDERS: PCP Emergency Medicine; Visit Provider Podiatrist
DX: S92.352A Displaced fracture of fifth metatarsal bone, left foot, initial encounter for closed fracture (principal)
CPT/HCPCS: 73630

== ENCOUNTER → 2022-11-02 11:00 | Outpatient (CLI) | payer MEDICARE, OTHER, SELFPAY ==
[2022-11-02 17:58] LABS: Basophils % 0.4 % (0.1-2.0); Eosinophils # 0.2 K/mm3 (0.0-0.4); Eosinophils % 1.8 % (0.1-12.0); Hematocrit 32.8 % (37.0-47.0); Hemoglobin 10.4 g/dL (12.2-16.2); Lymphocytes # 2.6 K/mm3 (0.7-4.5); Lymphocytes % 26.8 % (10-50); Mean Corpuscular HGB Conc 31.6 g/dL (31.8-35.4); Mean Corpuscular Hemoglobin 23.7 pg (27.0-31.2); Mean Corpuscular Volume 75.1 fl (81-99); Mean Platelet Volume 9.4 fl (7.4-10.4); Monocytes # 0.6 K/mm3 (0.1-1.0); Monocytes % 6.3 % (1.7-9.3); Neutrophils # 6.3 K/mm3 (1.8-7.8); Neutrophils % 64.7 % (37.0-80.0); Platelet Count 252 K/mm3 (142-424); Red Blood Count 4.37 M/mm3 (4.20-5.40); Red Cell Distribution Width 17.1 % (11.5-17.5); White Blood Count 9.7 K/mm3 (4.8-10.8)
[2022-11-02 18:13] LABS: Alanine Aminotransferase 19 U/L (12-78); Albumin/Globulin Ratio 1.5 (1.1-1.8); Alkaline Phosphatase 81 U/L (38-126); Anion Gap 10.9 mEq/L (5-15); Aspartate Amino Transferase 22 U/L (14-36); Bilirubin,Total 0.4 mg/dl (0.2-1.3); Blood Urea Nitrogen 11 mg/dl (7-17); Calcium 8.8 mg/dl (8.4-10.2); Carbon Dioxide 33 mmol/L (22.0-30.0); Chloride 101 mmol/L (98-107); Chol/HDL Ratio 3.2 (1-3.5); Cholesterol 138 mg/dl (140-200); Estimated Glomerular Filt Rate 83 ml/min (>60); GFR (African American) 101 ML/MIN (>60); Globulin 2.7 g/dL (1.3-3.2); Glucose 109 mg/dl (74-100); HDL Cholesterol 43 mg/dl (40-60); Potassium 3.9 mmoL/L (3.5-5.1); Sodium 141 mmol/L (136-145); Total Protein,Serum 6.7 g/dl (6.3-8.2); Triglycerides 186 mg/dl (30-150); VLDL Cholesterol 37 mg/dL (0-40)
[2022-11-02 18:27] LABS: Direct LDL Cholesterol 70.03 mg/dL (100-129)
[2022-11-02 18:33] LABS: T4 (Thyroxine) 10.8 ug/dl (5.53-11.0)
[2022-11-02 18:34] LABS: 25-OH Vitamin D, Total 15.6 ng/mL (30-100)
[2022-11-02 18:47] LABS: Thyroid Stimulating Hormone 2.45 uIU/mL (0.465-4.68)
== END ==
PROVIDERS: PCP Emergency Medicine; Visit Provider Emergency Medicine
DX: E03.9 Hypothyroidism, unspecified (principal); E55.9 Vitamin D deficiency, unspecified; H92.03 Otalgia, bilateral; E78.5 Hyperlipidemia, unspecified
CPT/HCPCS: 80053; 80061; 82306; 84436; 84443; 85025

== ENCOUNTER 2022-11-09 15:58 | Emergency (ER) | payer MEDICARE, OTHER, SELFPAY ==
[2022-11-09 16:08] VITALS: PULSE 85; O2SAT 96
[2022-11-09 16:14] VITALS: BP 124/47; PULSE 80; RESP 16; TEMP 36.8; O2SAT 95; BMI 34.2
[2022-11-09 16:15] VITALS: PULSE 85; O2SAT 96
--- NOTE | 2022-11-09 16:20 | HMH.EDGENADL ---
Discharge Plan Disposition Patient Disposition: Home, Self-Care Chief Complaint: Extremity Injury, Upper Prescriptions Prescriptions: No Action aspirin [Aspir-81] 81 mg tablet,delayed release (DR/EC) 81 mg PO QDAY hydrocodone-acetaminophen 5-325 mg tablet 1 tab PO TID Qty: 30 0RF cephalexin 500 mg capsule 500 mg PO TID Qty: 21 0RF ibuprofen 600 mg tablet 600 mg PO TID PRN (Reason: pain) 30 Days Qty: 90 0RF gabapentin 100 mg capsule 100 mg PO DAILY MDD 100mg Qty: 30 1RF Rx Instructions: Take one po qhs ondansetron 4 mg tablet,disintegrating 4 mg PO Q8H PRN (Reason: nausea and vomiting) Qty: 30 0RF fluticasone propionate 50 mcg/actuation spray,suspension See Rx Instructions .ROUTE .COMPLEX Qty: 16 2RF Dose Instruction: USE 1 SPRAY INTO EACH NOSTRIL 2 TIMES A DAY Rx Instructions: USE 1 SPRAY INTO EACH NOSTRIL 2 TIMES A DAY Prolia 60 mg/mL syringe 60 mg SQ [id number] Qty: 1 1RF budesonide 0.25 mg/2 mL suspension for nebulization See Rx Instructions .ROUTE .COMPLEX Qty: 60 0RF Dose Instruction: USE 2 ML IN NEBULIZER TWICE DAILY Rx Instructions: USE 2 ML IN NEBULIZER TWICE DAILY clopidogrel 75 mg tablet See Rx Instructions .ROUTE .COMPLEX Qty: 30 0RF Dose Instruction: TAKE ONE TABLET BY MOUTH ONCE A DAY FOR BLOOD THINNER Rx Instructions: TAKE ONE TABLET BY MOUTH ONCE A DAY FOR BLOOD THINNER calcium carbonate-vitamin D3 [Calcium 600 + D(3)] 600 mg-10 mcg (400 unit) tablet 1 tab PO DAILY Qty: 90 3RF pantoprazole 40 mg tablet,delayed release (DR/EC) 40 mg PO DAILY Qty: 90 3RF ipratropium-albuterol 0.5 mg-3 mg(2.5 mg base)/3 mL solution for nebulization See Rx Instructions .ROUTE .COMPLEX Qty: 360 0RF Dose Instruction: INHALE CONTENTS OF 1 VIAL VIA NEBULIZER FOUR TIMES DAILY NEEDED FOR SHORTNESS OF BREATH OR WHEEZING Rx Instructions: INHALE CONTENTS OF 1 VIAL VIA NEBULIZER FOUR TIMES DAILY NEEDED FOR SHORTNESS OF BREATH OR WHEEZING famotidine 20 mg tablet See Rx Instructions .ROUTE .COMPLEX Qty: 90 3RF Dose Instruction: TAKE 1 TABLET BY MOUTH EVERY DAY FOR STOMACH Rx Instructions: TAKE 1 TABLET BY MOUTH EVERY DAY FOR STOMACH atenolol 25 mg tablet See Rx Instructions .ROUTE .COMPLEX Qty: 90 3RF Dose Instruction: TAKE ONE TABLET BY MOUTH EVERY MORNING FOR BLOOD PRESSURE Rx Instructions: TAKE ONE TABLET BY MOUTH EVERY MORNING FOR BLOOD PRESSURE prasugrel 10 mg tablet See Rx Instructions .ROUTE .COMPLEX Qty: 90 3RF Dose Instruction: TAKE ONE TABLET BY MOUTH ONCE A DAY FOR BLOOD THINNER Rx Instructions: TAKE ONE TABLET BY MOUTH ONCE A DAY FOR BLOOD THINNER albuterol sulfate 90 mcg/actuation HFA aerosol inhaler See Rx Instructions .ROUTE .COMPLEX Qty: 8.5 2RF Dose Instruction: INHALE 2 PUFFS BY MOUTH EVERY 6 HOURS NEEDED FOR SHORTNESS OF BREATH Rx Instructions: INHALE 2 PUFFS BY MOUTH EVERY 6 HOURS NEEDED FOR SHORTNESS OF BREATH losartan-hydrochlorothiazide 50-12.5 mg tablet See Rx Instructions .ROUTE .COMPLEX Qty: 30 2RF Dose Instruction: TAKE ONE TABLET BY MOUTH ONCE A DAY FOR BLOOD PRESSURE Rx Instructions: TAKE ONE TABLET BY MOUTH ONCE A DAY FOR BLOOD PRESSURE meclizine 25 mg tablet See Rx Instructions .ROUTE .COMPLEX Qty: 90 2RF Dose Instruction: TAKE ONE TABLET BY MOUTH 3 TIMES A DAY FOR DIZZINESS Rx Instructions: TAKE ONE TABLET BY MOUTH 3 TIMES A DAY FOR DIZZINESS levothyroxine 25 mcg tablet See Rx Instructions .ROUTE .COMPLEX Qty: 30 2RF Dose Instruction: TAKE ONE TABLET BY MOUTH ONCE A DAY FOR THYROID Rx Instructions: TAKE ONE TABLET BY MOUTH ONCE A DAY FOR THYROID rosuvastatin 40 mg tablet See Rx Instructions .ROUTE .COMPLEX Qty: 30 2RF Dose Instruction: TAKE ONE TABLET BY MOUTH ONCE A DAY FOR CHOLESTEROL Rx Instructions: TAKE ONE TABL
[2022-11-09 16:32] VITALS: BP 124/47; PULSE 80; RESP 18; TEMP 36.8
== END 2022-11-09 16:32 | disposition home or self-care (01) ==
PROVIDERS: Emergency Provider Emergency Medicine; PCP Emergency Medicine
DX: S60.221A Contusion of right hand, initial encounter (principal); J44.9 Chronic obstructive pulmonary disease, unspecified; I25.10 Atherosclerotic heart disease of native coronary artery without angina pectoris; I65.29 Occlusion and stenosis of unspecified carotid artery; Z79.02 Long term (current) use of antithrombotics/antiplatelets; Z79.82 Long term (current) use of aspirin; I11.9 Hypertensive heart disease without heart failure; F32.A Depression, unspecified; K21.9 Gastro-esophageal reflux disease without esophagitis; E78.5 Hyperlipidemia, unspecified; E03.9 Hypothyroidism, unspecified; R01.1 Cardiac murmur, unspecified; Z87.891 Personal history of nicotine dependence; X58.XXXA Exposure to other specified factors, initial encounter
CPT/HCPCS: 99283

== ENCOUNTER → 2022-11-28 23:30 | Outpatient (CLI) | payer MEDICARE, OTHER, SELFPAY | END | disposition home or self-care (01) | PROVIDERS: PCP Emergency Medicine; Visit Provider Emergency Medicine | DX: N39.3 Stress incontinence (female) (male) (principal) | CPT/HCPCS: 87086 ==

== ENCOUNTER → 2022-12-12 12:47 | Outpatient (CLI) | payer MEDICARE, OTHER, SELFPAY ==
--- NOTE | 2022-12-12 13:00 | XR_ITS ---
FINAL REPORT CLINICAL HISTORY: middle back pain COMPARISON: None FINDINGS: Three views of the thoracic spine were obtained. There is no fracture present. There is no malalignment. There are [id number] degenerative changes with multilevel osteophytes. IMPRESSION: No acute process. Reviewed, Interpreted and Dictated by Kain Orozco III, MD Transcribed by Aneta Nichole Authenticated and [facility]
--- NOTE | 2022-12-12 13:00 | XR_ITS ---
FINAL REPORT CLINICAL HISTORY: right side pain FINDINGS: RIBS BILATERAL W/CHEST MIN 4 VIEWS The heart size is normal. The mediastinum is normal. The lungs are clear. There is no pneumothorax. No definite rib fracture is identified. IMPRESSION: No acute process. Reviewed, Interpreted and Dictated by Kain Orozco III, MD Transcribed by Yolande Mgcill Authenticated and [facility]
== END ==
PROVIDERS: PCP Emergency Medicine; Visit Provider Emergency Medicine
DX: M54.6 Pain in thoracic spine
CPT/HCPCS: 71101; 72070

== ENCOUNTER 2023-01-31 21:55 | Emergency (ER) | payer MEDICARE, OTHER, SELFPAY ==
[2023-01-31 21:57] VITALS: BP 140/63; PULSE 79; RESP 18; TEMP 36.4; O2SAT 96; BMI 35.4
--- NOTE | 2023-01-31 22:28 | HMH.EDGENADL ---
Discharge Plan Disposition Patient Disposition: Home, Self-Care Prescriptions Prescriptions: No Action aspirin [Aspir-81] 81 mg tablet,delayed release (DR/EC) 81 mg PO QDAY ondansetron 4 mg tablet,disintegrating 4 mg PO Q8H PRN (Reason: nausea and vomiting) Qty: 30 0RF ergocalciferol (vitamin D2) [Vitamin D2] 1,250 mcg (50,000 unit) capsule 1,250 mcg PO WEEKLY Qty: 5 2RF gabapentin 100 mg capsule 100 mg PO HS Qty: 30 0RF Prolia 60 mg/mL syringe 60 mg SQ [id number] Qty: 1 1RF budesonide 0.25 mg/2 mL suspension for nebulization See Rx Instructions .ROUTE .COMPLEX Qty: 60 0RF Dose Instruction: USE 2 ML IN NEBULIZER TWICE DAILY Rx Instructions: USE 2 ML IN NEBULIZER TWICE DAILY clopidogrel 75 mg tablet See Rx Instructions .ROUTE .COMPLEX Qty: 30 0RF Dose Instruction: TAKE ONE TABLET BY MOUTH ONCE A DAY FOR BLOOD THINNER Rx Instructions: TAKE ONE TABLET BY MOUTH ONCE A DAY FOR BLOOD THINNER ipratropium-albuterol 0.5 mg-3 mg(2.5 mg base)/3 mL solution for nebulization See Rx Instructions .ROUTE .COMPLEX Qty: 360 0RF Dose Instruction: INHALE CONTENTS OF 1 VIAL VIA NEBULIZER FOUR TIMES DAILY NEEDED FOR SHORTNESS OF BREATH OR WHEEZING Rx Instructions: INHALE CONTENTS OF 1 VIAL VIA NEBULIZER FOUR TIMES DAILY NEEDED FOR SHORTNESS OF BREATH OR WHEEZING famotidine 20 mg tablet See Rx Instructions .ROUTE .COMPLEX Qty: 90 3RF Dose Instruction: TAKE 1 TABLET BY MOUTH EVERY DAY FOR STOMACH Rx Instructions: TAKE 1 TABLET BY MOUTH EVERY DAY FOR STOMACH atenolol 25 mg tablet See Rx Instructions .ROUTE .COMPLEX Qty: 90 3RF Dose Instruction: TAKE ONE TABLET BY MOUTH EVERY MORNING FOR BLOOD PRESSURE Rx Instructions: TAKE ONE TABLET BY MOUTH EVERY MORNING FOR BLOOD PRESSURE prasugrel 10 mg tablet See Rx Instructions .ROUTE .COMPLEX Qty: 90 3RF Dose Instruction: TAKE ONE TABLET BY MOUTH ONCE A DAY FOR BLOOD THINNER Rx Instructions: TAKE ONE TABLET BY MOUTH ONCE A DAY FOR BLOOD THINNER Trelegy Ellipta 100-62.5-25 mcg blister with device See Rx Instructions .ROUTE .COMPLEX Qty: 60 2RF Dose Instruction: INHALE 1 PUFF BY MOUTH EVERY DAY Rx Instructions: INHALE 1 PUFF BY MOUTH EVERY DAY levofloxacin 500 mg tablet 500 mg PO Q24H Qty: 7 0RF meclizine 25 mg tablet See Rx Instructions .ROUTE .COMPLEX Qty: 90 2RF Dose Instruction: TAKE ONE TABLET BY MOUTH 3 TIMES A DAY FOR DIZZINESS Rx Instructions: TAKE ONE TABLET BY MOUTH 3 TIMES A DAY FOR DIZZINESS levothyroxine 25 mcg tablet See Rx Instructions .ROUTE .COMPLEX Qty: 30 2RF Dose Instruction: TAKE ONE TABLET BY MOUTH ONCE A DAY FOR THYROID Rx Instructions: TAKE ONE TABLET BY MOUTH ONCE A DAY FOR THYROID losartan-hydrochlorothiazide 50-12.5 mg tablet See Rx Instructions .ROUTE .COMPLEX Qty: 30 2RF Dose Instruction: TAKE ONE TABLET BY MOUTH ONCE A DAY FOR BLOOD PRESSURE Rx Instructions: TAKE ONE TABLET BY MOUTH ONCE A DAY FOR BLOOD PRESSURE rosuvastatin 40 mg tablet See Rx Instructions .ROUTE .COMPLEX Qty: 30 2RF Dose Instruction: TAKE ONE TABLET BY MOUTH ONCE A DAY FOR CHOLESTEROL Rx Instructions: TAKE ONE TABLET BY MOUTH ONCE A DAY FOR CHOLESTEROL pantoprazole 40 mg tablet,delayed release (DR/EC) See Rx Instructions .ROUTE .COMPLEX Qty: 30 2RF Dose Instruction: TAKE ONE TABLET BY MOUTH ONCE A DAY FOR STOMACH Rx Instructions: TAKE ONE TABLET BY MOUTH ONCE A DAY FOR STOMACH Robitussin Cough-Chest Eric DM 10-200 mg capsule 1 tab-cap PO Q8H PRN (Reason: cough) Qty: 20 0RF nystatin 100,000 unit/gram powder See Rx Instructions .ROUTE .COMPLEX Qty: 60 0RF Dose Instruction: APPLY TO AFFECTED AREA 2 TIMES A DAY Rx Instructions: APPLY TO AFFECTED AREA 2 TIMES A DAY calcium carbonate-vitamin D3 600 mg-10 mcg (400 unit) tablet
[2023-01-31 22:41] VITALS: BP 140/63; PULSE 78; RESP 18; TEMP 36.4; O2SAT 96
== END 2023-01-31 22:43 | disposition home or self-care (01) ==
PROVIDERS: Emergency Provider Student in an Organized Health Care Education/Training Program; PCP Emergency Medicine
DX: S09.90XA Unspecified injury of head, initial encounter (principal); I25.10 Atherosclerotic heart disease of native coronary artery without angina pectoris; I11.9 Hypertensive heart disease without heart failure; J44.9 Chronic obstructive pulmonary disease, unspecified; K21.9 Gastro-esophageal reflux disease without esophagitis; E78.5 Hyperlipidemia, unspecified; E03.9 Hypothyroidism, unspecified; Z87.891 Personal history of nicotine dependence; W20.8XXA Other cause of strike by thrown, projected or falling object, initial encounter; Z79.01 Long term (current) use of anticoagulants
CPT/HCPCS: 99283

== ENCOUNTER → 2023-02-21 16:14 | Outpatient (CLI) | payer MEDICARE, OTHER, SELFPAY | PROVIDERS: PCP Nurse Practitioner Family; Visit Provider Nurse Practitioner Family | DX: R39.9 Unspecified symptoms and signs involving the genitourinary system (principal); B96.29 Other Escherichia coli [E. coli] as the cause of diseases classified elsewhere; B96.89 Other specified bacterial agents as the cause of diseases classified elsewhere | CPT/HCPCS: 87086 ==

== ENCOUNTER 2023-05-01 18:30 | Emergency (ER) | payer MEDICARE, OTHER, SELFPAY ==
[2023-05-01 18:30] VITALS: BP 158/67; PULSE 85; RESP 22; TEMP 36.7; O2SAT 95; BMI 34.2
--- NOTE | 2023-05-01 18:31 | ECG_ITS ---
APPROVED REPORT Exam: Resting ECG HR:67 bpm ECG Measurements Heart Rate 67 AXES SD 128 P -7 QRSd 90 QRS 76 QT 413 T 57 QTc 429 Conclusion SINUS RHYTHM POSSIBLE RIGHT VENTRICULAR CONDUCTION DELAY [RSR (QR) IN V1/V2] BORDERLINE ECG UNCONFIRMED REPORT Electronically signed by : Stanley Reed MD 05/03/2023 14:39:26
--- NOTE | 2023-05-01 18:42 | XR_ITS ---
PROCEDURE INFORMATION: Exam: XR Chest Exam date and time: 05/01/2023 6:48 PM Age: 68 years old Clinical indication: Sternal or substernal pain; Additional info: Chest pain TECHNIQUE: Imaging protocol: Radiologic exam of the chest. Views: 1 view. COMPARISON: CR XR RIBS RT MIN 3V W CXR1V 12/12/2022 1:15 PM and 01/09/2021 FINDINGS: Lungs: Calcified nodules in the right mid lung and right apex redemonstrated. A faintly visible asymmetric density in the right lung base at the junction of the 6th anterior and 9th posterior ribs noted. Lungs are otherwise clear. Pleural spaces: Unremarkable. No pleural effusion. No pneumothorax. Heart/Mediastinum: Unremarkable. No cardiomegaly. Bones/joints: See Lungs finding. IMPRESSION: Asymmetric right basilar density. This may be summation shadows or possibly developing infiltrate. Developing nodule not excluded. Advise further assessment with nonemergent chest CT.
[2023-05-01 18:58] LABS: Basophils # 0.1 K/mm3 (0-0.2); Basophils % 0.8 % (0.1-2.0); Eosinophils # 0.1 K/mm3 (0.0-0.4); Eosinophils % 0.8 % (0.1-12.0); Hematocrit 31.7 % (37.0-47.0); Hemoglobin 10.1 g/dL (12.2-16.2); Lymphocytes # 3.5 K/mm3 (0.7-4.5); Lymphocytes % 28.1 % (10-50); Mean Corpuscular HGB Conc 31.8 g/dL (31.8-35.4); Mean Corpuscular Hemoglobin 22.2 pg (27.0-31.2); Mean Corpuscular Volume 69.8 fl (81-99); Mean Platelet Volume 8.4 fl (7.4-10.4); Monocytes # 0.8 K/mm3 (0.1-1.0); Monocytes % 6.5 % (1.7-9.3); Neutrophils # 7.8 K/mm3 (1.8-7.8); Neutrophils % 63.8 % (37.0-80.0); Platelet Count 351 K/mm3 (142-424); Red Blood Count 4.54 M/mm3 (4.20-5.40); Red Cell Distribution Width 17.4 % (11.5-17.5); White Blood Count 12.3 K/mm3 (4.8-10.8)
[2023-05-01 19:15] VITALS: PULSE 90
[2023-05-01 19:19] LABS: Alanine Aminotransferase 25 U/L (12-78); Albumin Level 4.1 g/dl (3.5-5.0); Albumin/Globulin Ratio 1.4 (1.1-1.8); Alkaline Phosphatase 74 U/L (38-126); Anion Gap 11.9 mEq/L (5-15); Aspartate Amino Transferase 37 U/L (14-36); Bilirubin,Total 0.7 mg/dl (0.2-1.3); Blood Urea Nitrogen 12 mg/dl (7-17); Calcium 8.8 mg/dl (8.4-10.2); Carbon Dioxide 33 mmol/L (22.0-30.0); Chloride 96 mmol/L (98-107); Creatinine Clearance Estimated 82 mL/min (50-200); Estimated Glomerular Filt Rate 71 ml/min (>60); GFR (African American) 86 ML/MIN (>60); Globulin 2.9 g/dL (1.3-3.2); Glucose 80 mg/dl (74-100); Potassium 3.9 mmoL/L (3.5-5.1); Sodium 137 mmol/L (136-145)
[2023-05-01 19:31] LABS: Troponin I < 0.01 ng/ml (0.00-0.034)
--- NOTE | 2023-05-01 19:47 | HMH.ITSTN ---
pt allergic to contrast dye; RN aware.
[2023-05-01 19:58] VITALS: BP 124/65; PULSE 78; RESP 20; TEMP 36.8; O2SAT 95
--- NOTE | 2023-05-01 20:01 | PC.NURSE ---
pt refused PE study and signed out against ama stated her family wanted her to be at
--- NOTE | 2023-05-19 13:39 | EXP.EVENT.NO ---
Patient LWBS by me prior to my evaluation on 05/01/23. Registered for Chest Pain. Hematologic labs collected by nursing ordered under me to facilitate expedited care. Briefly reviewed and were non-actionable. I did not physically see this patient or obtain HPI. Signed out AMA with nursing wishing to seek care at , please see their note.
== END 2023-05-01 20:02 | disposition left against medical advice (07) ==
PROVIDERS: Emergency Provider Emergency Medicine; PCP Internal Medicine
DX: R07.9 Chest pain, unspecified (principal)
CPT/HCPCS: 71045; 80053; 84484; 85025; 93005; 99285

== ENCOUNTER 2023-05-22 21:59 | Outpatient (CLI) | payer MEDICARE, OTHER, SELFPAY | END 2023-05-22 23:59 | PROVIDERS: PCP Family Medicine; Visit Provider Family Medicine | DX: N39.0 Urinary tract infection, site not specified (principal) | CPT/HCPCS: 87086 ==

== ENCOUNTER 2023-05-24 14:33 | Outpatient (CLI) | payer MEDICARE, OTHER, SELFPAY ==
--- NOTE | 2023-05-24 14:48 | XR_ITS ---
FINAL REPORT CLINICAL HISTORY: BACK PAIN FINDINGS: CERVICAL SPINE Three views were obtained. There is no acute fracture. There are mild degenerative changes in the cervical spine. There is no malalignment. IMPRESSION: Mild degenerative changes. THORACIC SPINE Two views were obtained. There is no acute fracture. There are mild degenerative changes with multilevel osteophytes. There is moderate thoracic kyphosis. There is no malalignment. IMPRESSION: Mild degenerative changes. LUMBAR SPINE Three views were obtained. There is no acute fracture. Mild degenerative changes are present. There is mild anterolisthesis of L3 on 4 and L4 on 5. Note is made of vascular calcification. IMPRESSION: Mild degenerative changes. Reviewed, Interpreted and Dictated by Kain Orozco III, MD Transcribed by Yolande Mcgill Authenticated and [facility]
--- NOTE | 2023-05-24 14:48 | XR_ITS ---
FINAL REPORT CLINICAL HISTORY: rib pain BILAT, HX RIGHT RIB FX IN LOWER RIBS COMPARISON: None FINDINGS: BILATERAL RIBS WITH CHEST Chest: The heart is normal in size. The mediastinum is normal. The lungs are clear. There is no pneumothorax. Ribs: 3 views demonstrate no acute displaced fracture. The visualized bony structures are well aligned. IMPRESSION: No acute process. No obvious rib fracture. Reviewed, Interpreted and Dictated by Kain Orozco III, MD Transcribed by Aneta Nichole Authenticated and [facility]
[2023-05-24 16:47] LABS: Vitamin B12 270 pg/mL (239-931)
[2023-05-24 16:49] LABS: Folate 4.49 ng/mL
[2023-05-24 17:13] LABS: Iron 37 ug/dL (37-170)
[2023-05-24 17:23] LABS: Total Iron Binding Capacity 444 ug/dL (265-497)
== END 2023-05-24 23:59 ==
PROVIDERS: PCP Internal Medicine; Visit Provider Family Medicine
DX: D64.9 Anemia, unspecified; D53.8 Other specified nutritional anemias; R07.81 Pleurodynia; M54.9 Dorsalgia, unspecified
CPT/HCPCS: 36415; 71111; 72084; 82607; 82746; 83540; 83550

== ENCOUNTER 2023-05-30 17:10 | Emergency (ER) | payer MEDICARE, OTHER, SELFPAY ==
[2023-05-30 18:40] VITALS: BP 131/89; PULSE 101; RESP 18; TEMP 36.7; O2SAT 95; BMI 38.2
[2023-05-30 18:48] LABS: Apearance,Urine Clear (Clear); Bilirubin,Urine Negative (Negative); Blood, Urine Trace (Negative); Color,Urine Yellow (Yellow); Glucose,Urine (UA) Negative (Negative); Ketones,Urine Negative (Negative); Protein,Urine Negative (Negative); UTC Leukocyte Esterase,Urine Negative (Negative); UTC Nitrate,Urine Negative (Negative); Urobilinogen,Urine 0.2 EU/dl (0.2)
--- NOTE | 2023-05-30 19:02 | EXP.UTC ---
Discharge Plan Disposition Patient Disposition: Home, Self-Care Condition: Good Prescriptions Prescriptions: New cephalexin 500 mg capsule 500 mg PO BID 7 Days Qty: 14 0RF No Action aspirin [Aspir-81] 81 mg tablet,delayed release (DR/EC) 81 mg PO QDAY ipratropium-albuterol 0.5 mg-3 mg(2.5 mg base)/3 mL solution for nebulization inhalation Patient Comments: INHALE CONTENTS OF 1 VIAL VIA NEBULIZER FOUR TIMES DAILY NEEDED FOR SHORTNESS OF BREATH OR WHEEZING nitrofurantoin monohyd/m-cryst [Macrobid] 100 mg capsule 100 mg PO BID 5 Days Qty: 10 0RF Rx Instructions: must administer with a meal/food famotidine 20 mg tablet See Rx Instructions .ROUTE .COMPLEX Qty: 90 3RF Dose Instruction: TAKE 1 TABLET BY MOUTH EVERY DAY FOR STOMACH Rx Instructions: TAKE 1 TABLET BY MOUTH EVERY DAY FOR STOMACH atenolol 25 mg tablet See Rx Instructions .ROUTE .COMPLEX Qty: 90 3RF Dose Instruction: TAKE ONE TABLET BY MOUTH EVERY MORNING FOR BLOOD PRESSURE Rx Instructions: TAKE ONE TABLET BY MOUTH EVERY MORNING FOR BLOOD PRESSURE prasugrel 10 mg tablet See Rx Instructions .ROUTE .COMPLEX Qty: 90 3RF Dose Instruction: TAKE ONE TABLET BY MOUTH ONCE A DAY FOR BLOOD THINNER Rx Instructions: TAKE ONE TABLET BY MOUTH ONCE A DAY FOR BLOOD THINNER montelukast 10 mg tablet See Rx Instructions .ROUTE .COMPLEX Qty: 30 0RF Dose Instruction: TAKE ONE TABLET BY MOUTH ONCE A DAY FOR ALLERGIES/BREATHING Rx Instructions: TAKE ONE TABLET BY MOUTH ONCE A DAY FOR ALLERGIES/BREATHING cetirizine 10 mg tablet See Rx Instructions .ROUTE .COMPLEX Qty: 30 0RF Dose Instruction: TAKE ONE TABLET BY MOUTH ONCE A DAY FOR ALLERGIES Rx Instructions: TAKE ONE TABLET BY MOUTH ONCE A DAY FOR ALLERGIES ergocalciferol (vitamin D2) 1,250 mcg (50,000 unit) capsule See Rx Instructions .ROUTE .COMPLEX Qty: 5 0RF Dose Instruction: TAKE 1 CAPSULE BY MOUTH ONCE WEEKLY Rx Instructions: TAKE 1 CAPSULE BY MOUTH ONCE WEEKLY meclizine 25 mg tablet See Rx Instructions .ROUTE .COMPLEX Qty: 90 0RF Dose Instruction: TAKE ONE TABLET BY MOUTH 3 TIMES A DAY FOR DIZZINESS Rx Instructions: TAKE ONE TABLET BY MOUTH 3 TIMES A DAY FOR DIZZINESS calcium carbonate-vitamin D3 600 mg-10 mcg (400 unit) tablet See Rx Instructions .ROUTE .COMPLEX Qty: 30 0RF Dose Instruction: TAKE ONE TABLET BY MOUTH ONCE A DAY Rx Instructions: TAKE ONE TABLET BY MOUTH ONCE A DAY losartan-hydrochlorothiazide 50-12.5 mg tablet See Rx Instructions .ROUTE .COMPLEX Qty: 30 0RF Dose Instruction: TAKE ONE TABLET BY MOUTH ONCE A DAY FOR BLOOD PRESSURE Rx Instructions: TAKE ONE TABLET BY MOUTH ONCE A DAY FOR BLOOD PRESSURE rosuvastatin 40 mg tablet See Rx Instructions .ROUTE .COMPLEX Qty: 30 0RF Dose Instruction: TAKE ONE TABLET BY MOUTH ONCE A DAY FOR CHOLESTEROL Rx Instructions: TAKE ONE TABLET BY MOUTH ONCE A DAY FOR CHOLESTEROL levothyroxine 25 mcg tablet See Rx Instructions .ROUTE .COMPLEX Qty: 30 0RF Dose Instruction: TAKE ONE TABLET BY MOUTH ONCE A DAY FOR THYROID Rx Instructions: TAKE ONE TABLET BY MOUTH ONCE A DAY FOR THYROID pantoprazole 40 mg tablet,delayed release (DR/EC) See Rx Instructions .ROUTE .COMPLEX Qty: 30 0RF Dose Instruction: TAKE ONE TABLET BY MOUTH ONCE A DAY FOR STOMACH Rx Instructions: TAKE ONE TABLET BY MOUTH ONCE A DAY FOR STOMACH fluticasone propionate [Flonase Allergy Relief] 50 mcg/actuation spray,suspension 1 spray intranasal DAILY Qty: 16 2RF Rx Instructions: administer into each nostril dextromethorphan-guaifenesin [Robitussin Cough-Chest Eric DM] 5-100 mg/5 mL liquid 10 ml PO Q8H PRN (Reason: cough) Qty: 500 1RF ferrous sulfate 325 mg (65 mg iron) tablet 325 mg PO DAILY Qty: 90 0RF mecobalamin (vitamin B12) 5,000 mcg tablet,disintegrating 5,000 mcg PO DAILY Qty: 90 0RF Referrals Follow up/Referrals: Duncan Whitman DO [Primary Care Provider] - See instructions Activity Restrictions/Add. Instructions Additional Instructions/Restrictions: *Increase fluids. Water not Soda or Tea *Start antibiotic immediately and be sure to take as ordered for the FULL length of time although you should start to see improvement over the next 48 hours Be SURE to follow up anytime for new or worsening symptoms with your family doctor. AND in 48 hours for urine culture results with your family doctor, if you do not have a doctor then you may call back to the [facility] for urine culture results and further treatment. We do recommend that you choose and establish care with a Primary Care Physician. ?AND follow up with them ?in 10-14 days to repeat UA to ensure infection is resolved and blood no longer present *Be sure to let your PCP know that we sent urine cultures from the [facility] so they can follow up to ensure that you area the on the correct antibiotic Call your doctor office and make appointment for 48 hours (2 days from today) ?to follow up and get the results of your urine culture and further treatment Clinical Impressions Clinical Impression: UTI symptoms Instructions Patient Instructions: Cephalexin, DI for Urinary Tract Infection (UTI), Urinary Tract Infection Discharge ED [place] Guerin [facility] [place] General Stated complaint: back pain, painful urination, nausea Mode of Arrival: Ambulatory Source of Information: Patient Limitations: No Limitations Time Seen by Provider: 05/30/23 19:02 Description of Symptoms (Recalled from Triage Doc. by RN): PATIENT C/O BURNING WITH URINAION, BLADDER PRESSURE, FEVER AND EAR ACHE X 3 DAYS HEENT Symptoms (Recalled from RN notes): Yes Resp Symptoms (Recalled from RN notes): No Skin Symptoms (Recalled from RN notes): No MS Symptoms (Recalled from RN notes): No Functional Status (Recalled from RN notes): WNL History of Present Illness Provider Complaint: Patient states that she feels like she has a UTI States that she was on medication last week but didnt help with it States that she is still having frequency and urgency along with burning with urination and achy like feeling in her lower back States that she also wants to get her ears checked they have been bothering her for several days and felt like she may have had a fever Related Data Home Medications Medication Instructions Recorded Confirmed aspirin 81 mg tablet,delayed 81 mg PO QDAY 05/02/17 05/22/23 release (Aspir-) ipratropium 0.5 mg-albuterol 3 mg ml inhalation 05/22/23 05/22/23 (2.5 mg base)/3 mL nebulization soln Previous Rx's Medication Instructions Recorded atenolol 25 mg tablet See Rx Instructions .Route 08/07/22 .COMPLEX #90 tabs famotidine 20 mg tablet See Rx Instructions .Route 08/07/22 .COMPLEX #90 tabs prasugrel 10 mg tablet See Rx Instructions .Route 08/07/22 .COMPLEX #90 tabs calcium carbonate 600 mg-vitamin See Rx Instructions .Route 05/14/23 D3 10 mcg (400 unit) tablet .COMPLEX #30 tabs cetirizine 10 mg tablet See Rx Instructions .Route 05/14/23 .COMPLEX #30 tabs ergocalciferol (vitamin D2) 1,250 See Rx Instructions .Route 05/14/23 mcg (50,000 unit) capsule .COMPLEX #5 caps levothyroxine 25 mcg tablet See Rx Instructions .Route 05/14/23 .COMPLEX #30 tabs losartan 50 mg-hydrochlorothiazide See Rx Instructions .Route 05/14/23 12.5 mg tablet .COMPLEX #30 tabs meclizine 25 mg tablet See Rx Instructions .Route 05/14/23 .COMPLEX #90 tabs montelukast 10 mg tablet See Rx Instructions .Route 05/14/23 .COMPLEX #30 tabs pantoprazole 40 mg tablet,delayed See Rx Instructions .Route 05/14/23 release .COMPLEX #30 tabs rosuvastatin 40 mg tablet See Rx Instructions .Route 05/14/23 .COMPLEX #30 tabs fluticasone propionate 50 1 spray intranasal DAILY #16 grams 05/15/23 mcg/actuation nasal spray,suspension (Flonase Allergy Relief) nitrofurantoin 100 mg PO BID 5 days #10 caps 05/22/23 monohydrate/macrocrystals 100 mg capsule (Macrobid) dextromethorphan-guaifenesin 5 10 ml PO Q8H PRN cough #500 mL 05/27/23 mg-100 mg/5 mL oral liquid (Robitussin Cough-Chest Congestion DM) ferrous sulfate 325 mg (65 mg 325 mg PO DAILY #90 tabs 05/27/23 iron) tablet mecobalamin (vitamin B12) 5,000 5,000 mcg PO DAILY vitamin B12 #90 05/27/23 mcg disintegrating tablet tabs cephalexin 500 mg capsule 500 mg PO BID 7 days #14 caps 05/30/23 Allergies Allergy/AdvReac Type Severity Reaction Status Date / Time amoxicillin [From Augmentin] Allergy Mild Abdominal Verified 05/22/23 15:07 complaints clavulanic acid Allergy Mild Abdominal Verified 05/22/23 15:07 [From Augmentin] complaints hydrocortisone Allergy Mild Verified 05/22/23 15:07 prednisolone Allergy Mild Verified 05/22/23 15:07 prednisone Allergy Mild Verified 05/22/23 15:07 codeine [CODEINE] Allergy Unknown Verified 05/22/23 15:07 promethazine [From PHENERGAN] Allergy Unknown Verified 05/22/23 15:07 phenobarbital AdvReac Unknown Verified 05/22/23 15:07 IV dye AdvReac Unknown Uncoded 02/21/23 09:47 Worker's Comp Is this a Worker's Comp case?: No [facility] Disclaimer: The information contained in this section may have been updated after the patient was seen, as this information can be updated by other users. Medical History CAD (coronary artery disease) Carotid artery disease COPD (chronic obstructive pulmonary disease) Depression Ear pain GERD (gastroesophageal reflux disease) Heart murmur HHD (hypertensive heart disease) HLD (hyperlipidemia) Hypothyroidism Metatarsal bone fracture Migraine Tobacco abuse Vitamin D deficiency Surgical History H/O tubal ligation History of appendectomy Family History Other Kidney disease Social History Smoking Status: Former smoker alcohol intake: never substance use type: denies use current occupational status: disabled Travel in the last 8 weeks: None household members: children housing: house ROS Obtained: Yes All systems reviewed & no additional complaints except as documented and Yes Systems reviewed as appropriate & no additional complaints except as documented Constitutional Constitutional: Reports system reviewed and no additional complaints, except as documented, Reports as per HPI and Reports fever(s) (feel like she may have had one didnt check it) ENT Ears, Nose, Mouth, and Throat: Reports system reviewed and no additional complaints, except as documented, Reports as per HPI and Reports otalgia Cardiovascular Cardiovascular: Reports system reviewed and no additional complaints, except as documented and Reports as per HPI Respiratory Respiratory: Reports system reviewed and no additional complaints, except as documented and Reports as per HPI Gastrointestinal Gastrointestingal: Reports system reviewed and no additional complaints, except as documented and as per HPI; Denies abdominal pain Genitourinary Female Genitourinary: Reports system reviewed and no additional complaints, except as documented, Reports as per HPI, Reports dysuria and Reports urinary urgency Musculoskeletal Musculoskeletal: Reports system reviewed and no additional complaints, except as documented, Reports as per HPI and Reports back pain (achy like pain in lower back like she has with UTI) Physical Exam General General appearance: alert and in no apparent distress ENT ENT exam: Present mucous membranes moist and TM's normal bilaterally (mild redness noted ) Respiratory Respiratory exam: Present normal lung sounds bilaterally; Absent respiratory distress or wheezes Cardiovascular Cardiovascular exam: Present regular rate, normal rhythm and normal heart sounds Abdominal Exam Abdominal exam: Present soft and normal bowel sounds; Absent distention or tenderness Back Exam Back exam: Present normal inspection Back 1 view image: 1. reports achy like feeling like she has when she has a UTI Neurological Exam Neurological exam: Present alert, oriented X3 and normal gait Medical Decision Making Ernie Inquiry Pt receiving controlled substance: No Ernie was queried for this patient: No Vital Signs: 05/30/23 18:40 Temperature 98.0 F Temperature Source Oral Pulse Rate [Right Brachial] 101 H Respiratory Rate 18 Blood Pressure [Right Arm] 131/89 Blood Pressure Mean [Right Arm] 103 Blood Pressure Source [Right Arm] Automatic Cuff Blood Pressure Position [Right Arm] Sitting 02 Sat by Pulse Oximetry 95 Oxygen Delivery Method Room Air Lab Data Lab results reviewed: Yes I reviewed the patient's lab results. Lab Results 05/30/23 18:47: Urine Color Yellow, Urine Appearance Clear, Urine pH 6.0, Ur Specific [place] 1.010, Urine Protein Negative, Urine Glucose (UA) Negative, Urine Ketones Negative, Urine Blood Trace, Urine Nitrate Negative, Urine Bilirubin Negative, Urine Urobilinogen 0.2, Ur Leukocyte Esterase Negative Orders (Tests/Meds): ORDERS Category Date Time Status Urine Culture Stat Micro 05/30/23 18:47 Ordered Medical Decision Narrative: Discussed with patient results of urine test and patient states that she is having symptoms like she has with UTI States that she has taken Cephalexin in the past without complication or reaction will do trial of medication and send urine for culture and have patient follow up with PCP for culture results
[2023-05-30 19:12] VITALS: BP 131/89; PULSE 101; RESP 18; TEMP 36.7; O2SAT 95
== END 2023-05-30 19:24 | disposition home or self-care (01) ==
PROVIDERS: Emergency Provider Nurse Practitioner; PCP Internal Medicine
DX: R30.0 Dysuria (principal); R35.0 Frequency of micturition; M54.59 Other low back pain; R50.9 Fever, unspecified; H92.03 Otalgia, bilateral; J44.9 Chronic obstructive pulmonary disease, unspecified; I11.9 Hypertensive heart disease without heart failure; I25.10 Atherosclerotic heart disease of native coronary artery without angina pectoris; E78.5 Hyperlipidemia, unspecified; E03.9 Hypothyroidism, unspecified; K21.9 Gastro-esophageal reflux disease without esophagitis; Z87.891 Personal history of nicotine dependence
CPT/HCPCS: 81003; 87086; 99212; 99214; G0463

== ENCOUNTER 2023-06-10 17:40 | Outpatient (CLI) | payer MEDICARE, OTHER, SELFPAY ==
[2023-06-11 09:55] LABS: Coronavirus 19, PCR Not Detected (NotDetected); Influenza A, PCR Not Detected (NotDetected); Influenza B, PCR Not Detected (NotDetected)
== END 2023-06-10 23:59 ==
PROVIDERS: PCP Student in an Organized Health Care Education/Training Program; Visit Provider Student in an Organized Health Care Education/Training Program
DX: R05.9 Cough, unspecified (principal); R09.89 Other specified symptoms and signs involving the circulatory and respiratory systems; H92.09 Otalgia, unspecified ear; J34.89 Other specified disorders of nose and nasal sinuses; Z20.828 Contact with and (suspected) exposure to other viral communicable diseases
CPT/HCPCS: 87636

== ENCOUNTER 2023-06-18 12:46 | Outpatient (CLI) | payer MEDICARE, OTHER, SELFPAY ==
[2023-06-18 12:53] LABS: Basophils # 0.1 K/mm3 (0-0.2); Basophils % 0.4 % (0.1-2.0); Eosinophils # 0.1 K/mm3 (0.0-0.4); Eosinophils % 1.1 % (0.1-12.0); Hematocrit 31.7 % (37.0-47.0); Hemoglobin 9.8 g/dL (12.2-16.2); Lymphocytes # 3.2 K/mm3 (0.7-4.5); Mean Corpuscular HGB Conc 30.7 g/dL (31.8-35.4); Mean Corpuscular Hemoglobin 23.3 pg (27.0-31.2); Mean Corpuscular Volume 75.8 fl (81-99); Mean Platelet Volume 8.2 fl (7.4-10.4); Monocytes # 0.6 K/mm3 (0.1-1.0); Monocytes % 5.6 % (1.7-9.3); Neutrophils # 7.5 K/mm3 (1.8-7.8); Neutrophils % 64.9 % (37.0-80.0); Platelet Count 315 K/mm3 (142-424); Red Blood Count 4.19 M/mm3 (4.20-5.40); Red Cell Distribution Width 17.6 % (11.5-17.5); White Blood Count 11.5 K/mm3 (4.8-10.8)
[2023-06-18 13:10] LABS: Anion Gap 13.3 mEq/L (5-15); Blood Urea Nitrogen 11 mg/dl (7-17); Calcium 8.9 mg/dl (8.4-10.2); Carbon Dioxide 30 mmol/L (22.0-30.0); Chloride 99 mmol/L (98-107); Estimated Glomerular Filt Rate 71 ml/min (>60); GFR (African American) 86 ML/MIN (>60); Glucose 109 mg/dl (74-100); Potassium 4.3 mmoL/L (3.5-5.1); Sodium 138 mmol/L (136-145)
[2023-06-18 13:18] LABS: NT Pro Brain Natriuretic Pep. 132 pg/mL (0-125)
== END 2023-06-18 23:59 ==
LOC: LAB.DROPOF 12:46
PROVIDERS: PCP Internal Medicine; Visit Provider Internal Medicine
DX: R60.0 Localized edema (principal); R39.9 Unspecified symptoms and signs involving the genitourinary system; N39.0 Urinary tract infection, site not specified; I50.9 Heart failure, unspecified; B96.29 Other Escherichia coli [E. coli] as the cause of diseases classified elsewhere; B96.89 Other specified bacterial agents as the cause of diseases classified elsewhere
CPT/HCPCS: 80048; 83880; 85025; 87070; 87086; 87205

== ENCOUNTER 2023-07-18 18:00 | Outpatient (CLI) | payer MEDICARE, OTHER, SELFPAY ==
[2023-07-18 18:20] LABS: Coronavirus 19, PCR Not Detected (NotDetected); Influenza A, PCR Not Detected (NotDetected); Influenza B, PCR Not Detected (NotDetected)
== END 2023-07-18 23:59 | disposition home or self-care (01) ==
LOC: LAB.DROPOF 07-19 10:11
PROVIDERS: PCP Student in an Organized Health Care Education/Training Program; Visit Provider Student in an Organized Health Care Education/Training Program
DX: R50.9 Fever, unspecified (principal); R35.0 Frequency of micturition; R11.2 Nausea with vomiting, unspecified
CPT/HCPCS: 87086; 87636

== ENCOUNTER 2023-08-22 10:13 | Outpatient (CLI) | payer MEDICARE, OTHER, SELFPAY | END 2023-08-22 23:59 | disposition home or self-care (01) | LOC: LAB.DROPOF 08-23 10:13 | PROVIDERS: PCP Student in an Organized Health Care Education/Training Program; Visit Provider Student in an Organized Health Care Education/Training Program | DX: R11.2 Nausea with vomiting, unspecified (principal); R19.7 Diarrhea, unspecified | CPT/HCPCS: 87635 ==

== ENCOUNTER 2023-09-27 19:28 | Emergency (ER) | payer MEDICARE, OTHER, SELFPAY ==
[2023-09-27] VITALS (10 sets, daily range): BP systolic 111–141; BP diastolic 54–74; PULSE 81–98; RESP 16; TEMP 37.1; O2SAT 94–98; BMI 35.0
--- NOTE | 2023-09-27 19:33 | ECG_ITS ---
APPROVED REPORT Exam: Resting ECG HR:93 bpm ECG Measurements Heart Rate 93 AXES KS 115 P 266 QRSd 94 QRS 70 QT 380 T 56 QTc 431 Conclusion INCOMPLETE RIGHT BUNDLE BRANCH BLOCK [90+ ms QRS DURATION, TERMINAL R IN V1/V2, 40+ ms S IN I/aVL/V4/V5/V6] ABNORMAL RHYTHM ECG UNCONFIRMED REPORT Electronically signed by : KLEVER LUNA, 09/29/2023 06:18:44
--- NOTE | 2023-09-27 20:05 | XR_ITS ---
PROCEDURE INFORMATION: Exam: XR Chest Exam date and time: 09/27/2023 9:14 PM Age: 68 years old Clinical indication: Pain; Chest pressure; Additional info: Chest pain TECHNIQUE: Imaging protocol: Radiologic exam of the chest. Views: 1 view. COMPARISON: CT CHEST WO CON 09/27/2023 8:59 PM FINDINGS: Lungs: Calcified right midlung granuloma. There are mild peripheral interstitial prominence. No consolidation. Pleural spaces: Unremarkable. No pleural effusion. No pneumothorax. Heart/Mediastinum: Densely calcified right paratracheal hal mass. No cardiomegaly. Vasculature: Unremarkable. Bones/joints: Unremarkable. IMPRESSION: No acute findings.
[2023-09-27 20:11] LABS: Basophils # 0.1 K/mm3 (0-0.2); Basophils % 0.7 % (0.1-2.0); Eosinophils # 0.1 K/mm3 (0.0-0.4); Eosinophils % 1.4 % (0.1-12.0); Hematocrit 32.1 % (37.0-47.0); Hemoglobin 9.8 g/dL (12.2-16.2); Lymphocytes % 29.3 % (10-50); Mean Corpuscular HGB Conc 30.6 g/dL (31.8-35.4); Mean Corpuscular Hemoglobin 23.9 pg (27.0-31.2); Mean Platelet Volume 7.5 fl (7.4-10.4); Monocytes # 0.5 K/mm3 (0.1-1.0); Neutrophils # 6.4 K/mm3 (1.8-7.8); Neutrophils % 63.6 % (37.0-80.0); Platelet Count 239 K/mm3 (142-424); Red Blood Count 4.11 M/mm3 (4.20-5.40); Red Cell Distribution Width 20.2 % (11.5-17.5); White Blood Count 10.1 K/mm3 (4.8-10.8)
[2023-09-27 20:17] LABS: Chloride 100 mmol/L (98-107); Sodium 138 mmol/L (136-145)
[2023-09-27 20:18] LABS: Potassium 3.1 mmoL/L (3.5-5.1)
[2023-09-27 20:20] LABS: Alanine Aminotransferase 33 U/L (12-78); Alkaline Phosphatase 64 U/L (38-126); Anion Gap 12.1 mEq/L (5-15); Aspartate Amino Transferase 37 U/L (14-36); Bilirubin,Total 0.6 mg/dl (0.2-1.3); Blood Urea Nitrogen 11 mg/dl (7-17); Carbon Dioxide 29 mmol/L (22.0-30.0); Creatinine Clearance Estimated 84 mL/min (50-200); Estimated Glomerular Filt Rate 83 ml/min (>60); GFR (African American) 101 ML/MIN (>60)
[2023-09-27 20:21] LABS: Albumin Level 4.1 g/dl (3.5-5.0); Albumin/Globulin Ratio 1.5 (1.1-1.8); Globulin 2.8 g/dL (1.3-3.2); Glucose 179 mg/dl (74-100); Total Protein,Serum 6.9 g/dl (6.3-8.2)
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
[2023-09-27] MEDS: LACTATED RINGERS 1000ML 1,000 ML 999 ML IV (20:25)
[2023-09-27] MEDS: MORPHINE 4MG/ML SYRINGE 4 MG IV ×2 (20:25→23:46)
[2023-09-27] MEDS: ONDANSETRON 4MG/2ML VIAL 4 MG IV (20:25)
[2023-09-27 20:35] LABS: Lipase 119 U/L (23-300)
[2023-09-27 20:42] LABS: Troponin I < 0.01 ng/ml (0.00-0.034)
[2023-09-27 21:00] LABS: Activated Partial Thrombo Time 24.2 seconds (22.8-30.6); INR 1.06 (0.9-1.1); Prothrombin Time 11.4 seconds (10.1-12.5)
[2023-09-27] MEDS: TET/DIPHTH/PERT-ADULT 0.5ML SYRINGE 0.5 ML IM (21:40)
--- NOTE | 2023-09-27 23:40 | PC.NURSE ---
Called [facility] for possible transfer
--- NOTE | 2023-09-27 23:45 | PC.NURSE ---
on phone with Lisa
[2023-09-28 00:29] VITALS: BP 131/54; PULSE 84; RESP 16; TEMP 37.1; O2SAT 95
== END 2023-09-28 00:30 | disposition other institution (70) ==
PROVIDERS: Emergency Provider Student in an Organized Health Care Education/Training Program; PCP Internal Medicine
DX: S22.43XA Multiple fractures of ribs, bilateral, initial encounter for closed fracture (principal); R07.89 Other chest pain; S51.811A Laceration without foreign body of right forearm, initial encounter; N94.9 Unspecified condition associated with female genital organs and menstrual cycle; R10.9 Unspecified abdominal pain; E87.1 Hypo-osmolality and hyponatremia; F17.210 Nicotine dependence, cigarettes, uncomplicated; J44.9 Chronic obstructive pulmonary disease, unspecified; K21.9 Gastro-esophageal reflux disease without esophagitis; I11.9 Hypertensive heart disease without heart failure; I25.10 Atherosclerotic heart disease of native coronary artery without angina pectoris; E78.5 Hyperlipidemia, unspecified; E03.9 Hypothyroidism, unspecified; V49.40XA Driver injured in collision with unspecified motor vehicles in traffic accident, initial encounter; Z23 Encounter for immunization; Y92.410 Unspecified street and highway as the place of occurrence of the external cause
CPT/HCPCS: 70450; 71045; 71250; 72125; 72128; 72131; 74176; 80053; 83690; 84484; 85025; 85610; 85730; 90715; 93005; 96361; 96372; 96374; 96375; 96376; 99285; J2270; J2405; J7120

== ENCOUNTER 2023-12-03 15:00 | Outpatient (CLI) | payer MEDICARE, OTHER, SELFPAY ==
--- NOTE | 2023-12-03 15:04 | XR_ITS ---
FINAL REPORT CLINICAL HISTORY: right rib fractures COMPARISON: Chest x-ray dated 09/27/2023 FINDINGS: RIGHT RIBS WITH CHEST A single PA view of the chest and three views of the right ribs were obtained. The heart size is normal. There is a bulky calcified right paratracheal lymph node. The lungs are clear. There is no pneumothorax. There is no acute displaced rib fracture. There are healing fracture deformities of the right 3rd through 6th ribs. IMPRESSION: Healing fracture deformities of the right 3rd through 6th ribs with no acute fracture. Reviewed, Interpreted and Dictated by Brendan Alatorre MD Transcribed by Susan Quintero Authenticated and [facility]
== END 2023-12-03 23:59 | disposition home or self-care (01) ==
LOC: RAD 15:02
PROVIDERS: PCP Physician Assistant; Visit Provider Physician Assistant
DX: R07.81 Pleurodynia (principal); S22.41XA Multiple fractures of ribs, right side, initial encounter for closed fracture
CPT/HCPCS: 71101

== ENCOUNTER 2024-03-27 10:09 | Outpatient (CLI) | payer MEDICARE, OTHER, SELFPAY ==
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
== END 2024-03-27 23:59 | disposition home or self-care (01) ==
LOC: RAD 10:12
PROVIDERS: PCP Internal Medicine; Visit Provider Family Medicine
DX: M25.561 Pain in right knee (principal); R07.81 Pleurodynia
CPT/HCPCS: 71100; 73562

== ENCOUNTER 2024-05-14 14:28 | Inpatient (IN) | payer MEDICARE, OTHER, SELFPAY ==
[2024-05-14] VITALS (21 sets, daily range): BP systolic 110–134; BP diastolic 52–84; PULSE 108–118; RESP 16–34; TEMP 36.8–37; O2SAT 96–100; BMI 35.9; BMI 39.3
--- NOTE | 2024-05-14 14:37 | ED_ITS ---
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 Administration Iron Sucrose 200 mg/ Sodium 110 mls @ 220 mls/hr 05/15/24 09:00 Chloride IV 05/15/24 09:29 ONCE ONE Levothyroxine Sodium 25 mcg 05/15/24 07:00 Levothyroxine 25mcg (0.025mg) Tab PO 06/14/24 06:59 DAILYDM VERÓNICA Non-Formulary Medication 500 mg 05/14/24 17:31 Acetaminophen PO Q6H PRN Pain Pantoprazole Sodium 40 mg 05/14/24 21:00 Pantoprazole 40mg Vial IV 06/13/24 20:59 BID VERÓNICA Discontinued Medications Generic Name Dose Route Start Last Admin Trade Name Freq PRN Reason Stop Dose Admin Albuterol/Ipratropium 9 ml 05/14/24 14:46 05/14/24 15:09 Ipratropium/Albuterol 3 Ml Neb IH 05/14/24 14:47 9 ml ONCE ONE Administration Calcium Gluconate/Sodium Chloride 2 gm in 100 mls @ 50 mls/hr 05/14/24 15:36 05/14/24 15:48 Calcium Gluconate 2,000mg/100ml Nacl Premix IV 05/14/24 17:35 50 mls/hr ONCE ONE Administration Potassium Chloride 60 meq 05/14/24 15:35 05/14/24 15:48 Potassium Chloride 20meq Tab PO 05/14/24 15:36 60 meq ONCE ONE Administration ORDERS Category Date Time Status Blood transfusion [Red Blood Cells] Stat BBK 05/14/24 15:00 Results Type and Screen Stat BBK 05/14/24 15:[address] chest wo con Stat Cat Scan 05/14/24 14:46 Completed BNP [NT Pro Brain Natriuretic Pep.] Stat Lab 05/14/24 15:00 Completed CBC w/Auto Diff [Complete Blood Count Auto Diff] Stat Lab 05/14/24 15:00 Completed CMP [Comprehensive Metabolic Panel] Stat Lab 05/14/24 15:00 Completed Complete Blood Count Auto Diff AMLAB Lab 05/15/24 06:00 Ordered Comprehensive Metabolic Panel AMLAB Lab 05/15/24 06:00 Ordered Full Resp Panel w/COVID ([facility]) Routine Lab 05/14/24 14:55 Completed HIV Combo Stat Lab 05/14/24 14:43 Completed Hepatitis C Ab Qual. W/ RFX Stat Lab 05/14/24 14:43 Completed INR [Prothrombin Time INR] Stat Lab 05/14/24 15:00 Completed Iron and TIBC Routine Lab 05/14/24 14:43 Completed Magnesium AMLAB Lab 05/15/24 06:00 Ordered Magnesium Stat Lab 05/14/24 15:00 Completed Procalcitonin Stat Lab 05/14/24 15:00 Completed Trop I [Troponin I] Stat Lab 05/14/24 15:00 Completed Troponin I Q3H Lab 05/14/24 18:00 Ordered Troponin I Q3H Lab 05/14/24 21:00 Ordered UA [Urinalysis and Microscopic] Stat Lab 05/14/24 17:52 Completed Urine Culture Stat Micro 05/14/24 17:52 Received VBG [Venous Blood Gas] Stat RT 05/14/24 14:53 Completed ECG Data Tracing #1: Attestation: I reviewed this ECG and interpreted as documented below: ECG Narrative: Independently interpreted by myself demonstrate sinus tachycardia with a prolonged AR, first-degree AV block, no acute ischemic ST changes.
--- NOTE | 2024-05-14 14:38 | ECG_ITS ---
APPROVED REPORT Exam: Resting ECG HR:104 bpm ECG Measurements Heart Rate 104 AXES ND 114 P 267 QRSd 98 QRS 67 QT 378 T 20 QTc 438 Conclusion JUNCTIONAL TACHYCARDIA INCOMPLETE RIGHT BUNDLE BRANCH BLOCK [90+ ms QRS DURATION, TERMINAL R IN V1/V2, 40+ ms S IN I/aVL/V4/V5/V6] MINIMAL ST DEPRESSION [0.025+ mV ST DEPRESSION] ABNORMAL RHYTHM ECG UNCONFIRMED REPORT Electronically signed by : KLEVER LUNA, 05/15/2024 06:51:31
--- NOTE | 2024-05-14 14:46 | CT_ITS ---
FINAL REPORT TECHNIQUE: Axial images were obtained through the chest without contrast. Coronal and sagittal reconstructed images were obtained and reviewed. This study was performed with techniques to keep radiation doses as low as reasonably achievable, (ALARA). Individualized dose reduction techniques using automated exposure control or adjustment of mA and/or kV according to the patient's size were employed. CLINICAL HISTORY: Dyspnea COMPARISON: 02/28/2021 FINDINGS: There is an asymmetric fat attenuation structure in the inferior cervical region eccentric to the left. This fat attenuation structure measures up to 4.8 cm, probably due to a lipoma of the neck. There is a bulky densely calcified right paratracheal lymph node. There is an ovoid low-attenuation structure in the right adrenal gland. This structure measures approximately 2.2 x 1.5 cm, consistent with an adenoma. The heart size is normal. On the lung windows, there are advanced changes of centrilobular emphysema. Multiple scattered calcified granulomas are seen in both lungs. The previously questioned 6 mm nodular density in the lingula is less evident on today's exam. There is no pericardial or pleural effusion. Limited images of the upper abdomen are unremarkable. IMPRESSION: Lipoma left anterior cervical region. Old granulomatous disease. Right adrenal adenoma. Advanced changes of centrilobular emphysema. Reviewed, Interpreted and Dictated by Brendan Alatorre MD Transcribed by Shirin Hager Authenticated and [facility]
--- NOTE | 2024-05-14 14:50 | PC.NURSE ---
respiratory aware of vbg order
[2024-05-14 15:00] LABS: Adenovirus,PCR Not Detected (NotDetected); Bordetella Pertussis Not Detected (NotDetected); Chlamydophila Pneumoniae, PCR Not Detected (NotDetected); Coronavirus 19, PCR Not Detected (NotDetected); Coronavirus 229E Not Detected (NotDetected); Coronavirus NL63 Not Detected (NotDetected); Coronavirus OC43 Not Detected (NotDetected); Coronovirus HKU1,PCR Not Detected (NotDetected); Human Metapneumovirus Not Detected (NotDetected); Influenza A, PCR Not Detected (NotDetected); Influenza AH1, 2009 Not Detected (NotDetected); Influenza AH1, PCR Not Detected (NotDetected); Influenza AH3,PCR Not Detected (NotDetected); Influenza B, PCR Not Detected (NotDetected); Mycoplasma Pneumoniae, PCR Not Detected (NotDetected); Parainfluenza 1, PCR Not Detected (NotDetected); Parainfluenza 2, PCR Not Detected (NotDetected); Parainfluenza 3, PCR Not Detected (NotDetected); Parainfluenza 4, PCR Not Detected (NotDetected); Respiratory Syncytial Virus Not Detected (NotDetected); Rhinovirus/Enterovirus Not Detected (NotDetected)
[2024-05-14 15:00] LABS: Lactate Venous 1.6 mmol/L (0.4-2.0); VBG Base Excess 5.3 mmol/L (-2.4-2.3); VBG HCO3 29.6 mmol/L (23-30); VBG PH 7.43 mmol/L (7.31-7.41); VBG PO2 77.4 mmol/L (28-40); VBG Total CO2 31.1 mmol/L (23-27)
[2024-05-14] MEDS: IPRATROPIUM/ALBUTEROL 3 ML NEB 9 ML IH (15:09)
[2024-05-14 15:10] LABS: Basophils # 0.1 K/mm3 (0-0.2); Basophils % 0.5 % (0.1-2.0); Eosinophils # 0.1 K/mm3 (0.0-0.4); Eosinophils % 0.9 % (0.1-12.0); Hematocrit 24.4 % (37.0-47.0); Lymphocytes # 1.7 K/mm3 (0.7-4.5); Lymphocytes % 15.6 % (10-50); Mean Corpuscular HGB Conc 27.5 g/dL (31.8-35.4); Mean Corpuscular Hemoglobin 20.8 pg (27.0-31.2); Mean Corpuscular Volume 75.8 fl (81-99); Mean Platelet Volume 10.1 fl (7.4-10.4); Monocytes # 0.6 K/mm3 (0.1-1.0); Monocytes % 5.9 % (1.7-9.3); Neutrophils # 8.3 K/mm3 (1.8-7.8); Neutrophils % 76.2 % (37.0-80.0); Platelet Count 256 K/mm3 (142-424); Red Blood Count 3.22 M/mm3 (4.20-5.40); Red Cell Distribution Width 17.7 % (11.5-17.5); White Blood Count 10.9 K/mm3 (4.8-10.8)
[2024-05-14 15:16] LABS: Albumin Level 3.8 g/dl (3.5-5.0); Chloride 97 mmol/L (98-107)
[2024-05-14 15:17] LABS: Sodium 138 mmol/L (136-145)
[2024-05-14 15:19] LABS: Alanine Aminotransferase 23 U/L (12-78); Alkaline Phosphatase 73 U/L (38-126); Aspartate Amino Transferase 24 U/L (14-36); Bilirubin,Total 0.4 mg/dl (0.2-1.3); Blood Urea Nitrogen 6 mg/dl (7-17); Carbon Dioxide 35 mmol/L (22.0-30.0); Creatinine Clearance Estimated 85 mL/min (50-200); Estimated Glomerular Filt Rate 99 ml/min (>60); GFR (African American) 120 ML/MIN (>60)
[2024-05-14 15:20] LABS: Albumin/Globulin Ratio 1.5 (1.1-1.8); Calcium 8.1 mg/dl (8.4-10.2); Globulin 2.5 g/dL (1.3-3.2); Glucose 140 mg/dl (74-100); Hemoglobin 6.7 g/dL (12.2-16.2); Magnesium 1.9 mg/dl (1.6-2.3); Total Protein,Serum 6.3 g/dl (6.3-8.2)
[2024-05-14 15:24] LABS: INR 0.94 (0.9-1.1); Prothrombin Time 10.5 seconds (9.2-12.1)
[2024-05-14 15:30] LABS: NT Pro Brain Natriuretic Pep. 149 pg/mL (0-125)
[2024-05-14 15:32] LABS: Troponin I < 0.01 ng/ml (0.00-0.034)
--- NOTE | 2024-05-14 15:34 | PC.NURSE ---
pt finished neb tx, put back on NC 2lpm
[2024-05-14 15:44] LABS: Iron 34 ug/dL (37-170)
[2024-05-14 15:44] LABS: Procalcitonin 0.071 ng/mL (0.0-2.0)
[2024-05-14] MEDS: CALCIUM GLUC IN NACL, ISO-OSM 2 GM/100 ML BAG IV (15:48)
[2024-05-14] MEDS: POTASSIUM CHLORIDE 20MEQ TAB 60 MEQ PO (15:48)
[2024-05-14 15:57] LABS: Total Iron Binding Capacity 455 ug/dL (265-497)
[2024-05-14 15:58] LABS: HIV Combo NEGATIVE (Negative)
[2024-05-14 16:06] LABS: Hepatitis C Ab Qual. W/ RFX NEGATIVE (Negative)
--- NOTE | 2024-05-14 16:30 | PC.NURSE ---
PA at bedside. calcium that is infusing IV was checked on. awaiting for unit of prbc's to be ready from lab.
--- NOTE | 2024-05-14 17:18 | PC.NURSE ---
family at bedside updated on plan of care.
--- NOTE | 2024-05-14 17:26 | PC.NURSE ---
veronika alegria on phone with hospitalist
--- NOTE | 2024-05-14 17:29 | PC.NURSE ---
HS aware of admission
--- NOTE | 2024-05-14 17:55 | PC.NURSE ---
lab called to notify that unit was ready. 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
[2024-05-14 18:01] LABS: Microscopic, Urine URINE MICROSCOPIC (MICROSCOPIC)
[2024-05-14 18:02] LABS: Appearance,Urine CLEAR (Clear); Bilirubin,Urine Negative (Negative); Blood, Urine Negative (Negative); Color,Urine YELLOW (Yellow); Glucose,Urine (UA) Negative (Negative); Ketones,Urine Negative (Negative); Leukocyte Esterase,Urine TRACE (Negative); Nitrate,Urine Negative (Negative); PH,Urine 6.5 (5.0-8.5); Protein,Urine Negative (Negative); Urobilinogen,Urine 0.2 EU/dl (0.2)
--- NOTE | 2024-05-14 18:14 | PC.NURSE ---
report called to Vilma. Blood infusing and waiting the 15 minutes before coming to get pt for transport
[2024-05-14] MEDS: IPRATROPIUM/ALBUTEROL 3 ML NEB IH ×2 (18:25→22:55)
[2024-05-14] MEDS: KCl 20mEq/100ml 100 ML 50 MEQ IV ×2 (18:28→22:53)
[2024-05-14] MEDS: 0.9 % SODIUM CHLORIDE 250 ML 25 ML IV (18:28)
[2024-05-14 18:30] LABS: Bacteria,Urine 2+ /lpf; Squamous Epithelial Cell,Urine 20-50 #/hpf (0-5); WBC,Urine 20-50 #/hpf (0-3)
[2024-05-14 22:26] LABS: Hematocrit 27.5 % (37.0-47.0)
[2024-05-14 22:31] LABS: Hemoglobin 7.9 g/dL (12.2-16.2)
[2024-05-14 22:48] LABS: Troponin I < 0.01 ng/ml (0.00-0.034)
[2024-05-14] MEDS: PANTOPRAZOLE 40MG VIAL 40 MG IV (23:22)
[2024-05-14] MEDS: TRAMADOL 50MG TABLET 50 MG PO (23:24)
[2024-05-15] VITALS (21 sets, daily range): BP systolic 119–156; BP diastolic 58–87; PULSE 70–102; RESP 16–22; TEMP 36.6–37.3; O2SAT 93–98; BMI 35.9
[2024-05-15] MEDS: LIDOCAINE 1% 5ML PF VIAL 2 ML IJ (00:45)
[2024-05-15] MEDS: KCl 20mEq/100ml 100 ML 50 MEQ IV (00:45)
[2024-05-15 01:55] LABS: Troponin I < 0.01 ng/ml (0.00-0.034)
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
--- NOTE | 2024-05-15 03:46 | PC.NURSE ---
Addendum entered by Shikha Jane RN 05/15/24 06:57: per pt, all meds to be crushed in vanilla pudding Original Note: pt on baseline home o2 at 2l nc. pt states she feels much better already since receiving blood transfusion. no issues or concerns so far this shift. pt has been awake all night stating she doesn't sleep much as it is. currently sitting up in bed with granddaughter at bs. no needs or concerns at the moment. pt has been made aware of NPO status and the need for urine and stool specimens.
[2024-05-15 06:10] LABS: Basophils % 0.4 % (0.1-2.0); Eosinophils % 0.3 % (0.1-12.0); Hematocrit 24.9 % (37.0-47.0); Lymphocytes # 2.2 K/mm3 (0.7-4.5); Lymphocytes % 20.3 % (10-50); Mean Corpuscular HGB Conc 28.5 g/dL (31.8-35.4); Mean Corpuscular Hemoglobin 22.3 pg (27.0-31.2); Mean Corpuscular Volume 78.1 fl (81-99); Monocytes # 0.8 K/mm3 (0.1-1.0); Monocytes % 7.2 % (1.7-9.3); Neutrophils # 7.6 K/mm3 (1.8-7.8); Neutrophils % 71.1 % (37.0-80.0); Platelet Count 257 K/mm3 (142-424); Red Blood Count 3.19 M/mm3 (4.20-5.40); Red Cell Distribution Width 17.4 % (11.5-17.5); White Blood Count 10.7 K/mm3 (4.8-10.8)
[2024-05-15 06:15] LABS: Albumin Level 3.5 g/dl (3.5-5.0); Chloride 101 mmol/L (98-107); Potassium 3.7 mmoL/L (3.5-5.1); Sodium 137 mmol/L (136-145)
[2024-05-15 06:18] LABS: Alanine Aminotransferase 19 U/L (12-78); Albumin/Globulin Ratio 1.6 (1.1-1.8); Alkaline Phosphatase 65 U/L (38-126); Anion Gap 5.7 mEq/L (5-15); Aspartate Amino Transferase 24 U/L (14-36); Bilirubin,Total 0.4 mg/dl (0.2-1.3); Blood Urea Nitrogen 8 mg/dl (7-17); Calcium 8.2 mg/dl (8.4-10.2); Carbon Dioxide 34 mmol/L (22.0-30.0); Creatinine Clearance Estimated 85 mL/min (50-200); Estimated Glomerular Filt Rate 99 ml/min (>60); GFR (African American) 120 ML/MIN (>60); Globulin 2.2 g/dL (1.3-3.2); Glucose 97 mg/dl (74-100); Total Protein,Serum 5.7 g/dl (6.3-8.2)
[2024-05-15 06:19] LABS: Magnesium 1.8 mg/dl (1.6-2.3)
[2024-05-15 06:26] LABS: Hemoglobin 7.1 g/dL (12.2-16.2)
[2024-05-15] MEDS: IPRATROPIUM/ALBUTEROL 3 ML NEB IH ×2 (06:29→18:24)
[2024-05-15] MEDS: IRON SUCROSE COMPLEX 200 MG in 0.9 % SODIUM CHLORIDE 100 ML 220 MG IV (08:25)
[2024-05-15] MEDS: FLUTICASONE PROP 50MCG NASAL SPRAY 16GM 1 SPRAY NS (08:25)
[2024-05-15] MEDS: PANTOPRAZOLE 40MG VIAL 40 MG IV ×2 (08:26→20:04)
[2024-05-15] MEDS: ATENOLOL 25MG TABLET 25 MG PO (08:26)
--- NOTE | 2024-05-15 09:26 | P.CONS_ITS ---
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 She has had progressive fatigue and decreased exercise tolerance with some dyspnea. She was found to have low hemoglobin on blood work. This was consistent with iron deficiency anemia. Patient does take pantoprazole. she was admitted for inpatient management. She was transfused a unit of packed red blood cells. It was felt that she would warranted EGD. After her hemoglobin was 6.7 she was transfused 1 unit of packed red blood cells with resultant hemoglobin of 7.9. However, this morning her hemoglobin is 7.1. [facility] Disclaimer: The information contained in this section may have been updated after the patient was seen, as this information can be updated by other users. Medical History (Updated 05/15/24 @ 11:09 by Fariba Mckenzie APRN) Pre-operative cardiovascular examination Dysphagia Migraine GERD (gastroesophageal reflux disease) Depression Metatarsal bone fracture Hypothyroidism Vitamin D deficiency Ear pain Heart murmur Tobacco abuse Carotid artery disease COPD (chronic obstructive pulmonary disease) HLD (hyperlipidemia) HHD (hypertensive heart disease) CAD (coronary artery disease) Surgical History H/O tubal ligation History of appendectomy Family History Other Kidney disease Social History Smoking Status: Former smoker alcohol intake: never substance use type: denies use current occupational status: disabled Travel in the last 8 weeks: None household members: children housing: house Meds Home Medications and Allergies Home Medications ?Medication ?Instructions ?Recorded ?Confirmed ?Type aspirin 81 mg tablet,delayed 81 mg PO DAILY 05/02/17 05/15/24 History release (Aspir-) acetaminophen 500 mg capsule 500 mg PO Q6H PRN Pain 10/15/23 05/14/24 History lidocaine 5 % topical patch 1 patch topical DAILY #30 ea 12/03/23 05/14/24 Rx (Lidoderm) furosemide 20 mg tablet 20 mg PO BID #60 tabs 02/19/24 05/14/24 Rx fluticasone fur. 100 mcg-umeclid See Rx Instructions .Route 04/23/24 05/14/24 Rx 62.5 mcg-vilant 25 mcg .COMPLEX #60 ea inhalat.powder (Trelegy Ellipta) ipratropium 0.5 mg-albuterol 3 mg 3 ml inhalation Q6H COPD 90 days 04/29/24 05/14/24 Rx (2.5 mg base)/3 mL nebulization #180 mL soln carbamide peroxide 6.5 % ear drops 5 drp otic (ear) BID 4 days #15 mL 05/13/24 05/14/24 Rx (Debrox) naproxen 500 mg tablet 500 mg PO BID #60 tabs 05/13/24 05/14/24 Rx tramadol 50 mg tablet 50 mg PO DAILY #30 tabs 05/13/24 05/14/24 Rx atenolol 25 mg tablet 25 mg PO DAILY 05/15/24 05/15/24 History calcium 600 mg (as 1 tab PO DAILY 05/15/24 05/15/24 History carbonate)-vitamin D3 10 mcg (400 unit) tablet cetirizine 10 mg tablet 10 mg PO DAILY 05/15/24 05/15/24 History cyanocobalamin (vitamin B-12) 5,000 mcg sublingual DAILY 05/15/24 05/15/24 History 5,000 mcg sublingual tablet (Vitamin B-12) duloxetine 30 mg capsule,delayed 30 mg PO DAILY 05/15/24 05/15/24 History release ergocalciferol (vitamin D2) 1,250 1,250 mcg PO WEEKLY 05/15/24 05/15/24 History mcg (50,000 unit) capsule famotidine 20 mg tablet 20 mg PO DAILY 05/15/24 05/15/24 History ferrous sulfate 325 mg (65 mg 325 mg PO DAILY 05/15/24 05/15/24 History iron) tablet (FeroSul) fluticasone propionate 50 1 spray intranasal DAILY 05/15/24 05/15/24 History mcg/actuation nasal spray,suspension guaifenesin 200 mg tablet 200 mg PO QIDP PRN Congestion 05/15/24 05/15/24 History levothyroxine 25 mcg tablet 25 mcg PO DAILY 05/15/24 05/15/24 History losartan 50 mg-hydrochlorothiazide 1 tab PO DAILY 50/12.5MG 05/15/24 05/15/24 History 12.5 mg tablet meclizine 25 mg tablet 25 mg PO TID 05/15/24 05/15/24 History methocarbamol 500 mg tablet 500 mg PO QID 05/15/24 05/15/24 History montelukast 10 mg tablet 10 mg PO PM 05/15/24 05/15/24 History pantoprazole 40 mg tablet,delayed 40 mg PO DAILY 05/15/24 05/15/24 History release prasugrel HCl 10 mg tablet 10 mg PO DAILY 05/15/24 05/15/24 History rosuvastatin 40 mg tablet 40 mg PO DAILY 05/15/24 05/15/24 History sennosides 8.6 mg tablet (senna) 8.6 mg PO BIDP PRN Constipation 05/15/24 05/15/24 History New Prescriptions to Start Prescriptions: Allergies Allergy/AdvReac Type Severity Reaction Status Date / Time amoxicillin (From Augmentin) Allergy Mild Abdominal Verified 05/13/24 14:42 complaints clavulanic acid (From Allergy Mild Abdominal Verified 05/13/24 14:42 Augmentin) complaints hydrocortisone Allergy Mild Verified 05/13/24 14:42 prednisolone Allergy Mild Verified 05/13/24 14:42 prednisone Allergy Mild Verified 05/13/24 14:42 codeine (CODEINE) Allergy Unknown Verified 05/13/24 14:42 promethazine (From PHENERGAN) Allergy Unknown Verified 05/13/24 14:42 phenobarbital AdvReac Unknown Verified 05/13/24 14:42 IV dye AdvReac Unknown Uncoded 05/13/24 14:42 Exam (Inpt) Vital signs and Labs for Last 24 Hours: Temp Pulse Resp BP Pulse Ox O2 Del Method O2 Flow Rate 99.2 F 100 H 18 119/64 96 Nasal Cannula 2 05/15/24 08:00 05/15/24 08:00 05/15/24 08:00 05/15/24 08:00 05/15/24 08:00 05/15/24 08:00 05/15/24 08:00 Laboratory Results - last 24 hr 05/14/24 14:43: Iron 34 L, TIBC 455, Iron Saturation 7.55334 L, HCV Ab JORDEN w/Rflx PCR Qn Negative, HIV Ag/Ab Combo Qual Negative 05/14/24 14:53: VBG pH 7.43 H, VBG pCO2 46.0, VBG pO2 77.4 H, VBG HCO3 29.6, VBG Total CO2 31.1 H, VBG O2 Saturation 95.0 H, VBG Base Excess 5.3 H, VBG Lactic Acid 1.6 05/14/24 14:55: Chlamy pneumoniae PCR Not detected, Adenovirus (PCR) Not detected, B. pertussis DNA (PCR) Not detected, Coronavirus OC43 (PCR) Not detected, Coronavirus HKU1 (PCR) Not detected, Coronavirus 229E (PCR) Not detected, SARS-CoV-2 (PCR) Not detected, Coronavirus NL63 (PCR) Not detected, Human Metapneumovir PCR Not detected, Influenza A (H1) PCR Not detected, Influ A (H1N1/09) PCR Not detected, Influenza A (H3) PCR Not detected, Influenza Type A (PCR) Not detected, Influenza Type B (PCR) Not detected, M. pneumoniae (PCR) Not detected, Parainfluenza 1 (PCR) Not detected, Parainfluenza 2 (PCR) Not detected, Parainfluenza 3 (PCR) Not detected, Parainfluenza 4 (PCR) Not detected, RSV (PCR) Not detected, Entero/Rhino (PCR) Not detected 05/14/24 15:00: WBC 10.9 H, RBC 3.22 L, Hgb 6.7 L*, Hct 24.4 L, MCV 75.8 L, MCH 20.8 L, MCHC 27.5 L, RDW 17.7 H, Plt Count 256, MPV 10.1, Neut % (Auto) 76.2, Lymph % (Auto) 15.6, [place] % (Auto) 5.9, Eos % (Auto) 0.9, Baso % (Auto) 0.5, N eut # (Auto) 8.3 H, Lymph # (Auto) 1.7, [place] # (Auto) 0.6, Eos # (Auto) 0.1, Baso # (Auto) 0.1, PT 10.5, INR 0.94, Sodium 138, Potassium 3.0 L, Chloride 97 L , Carbon Dioxide 35 H, Anion Gap 9.0, BUN 6 L, Creatinine 0.60, Estimated Creat Clear 85, Estimated GFR 99, Est GFR ( Amer) 120, Glucose 140 H D, Calcium 8.1 L, Magnesium 1.9, Total Bilirubin 0.4, AST 24, ALT 23, Alkaline Phosphatase 73, Troponin I < 0.01, NT-Pro-B Natriuret Pep 149 H, Total Protein 6.3, Albumin 3.8, Globulin 2.5, Albumin/Globulin Ratio 1.5, Procalcitonin 0.071, Blood Type B Positive, Antibody Screen Negative, Crossmatch (AHG) See Detail 05/14/24 17:52: Urine Color Yellow, Urine Appearance Clear, Urine pH 6.5, Ur Specific [place] 1.020, Urine Protein Negative, Urine Glucose (UA) Negative, Urine Ketones Negative, Urine Blood Negative, Urine Nitrate Negative, Urine Bilirubin Negative, Urine Urobilinogen 0.2, Ur Leukocyte Esterase Trace, Urine RBC 5-10, Urine WBC 20-50, Ur Squamous Epith Cells 20-50, Urine Bacteria 2+ 05/14/24 22:15: Hgb 7.9 L D, Hct 27.5 L, Troponin I < 0.01 05/15/24 01:05: Troponin I < 0.01 05/15/24 05:12: WBC 10.7, RBC 3.19 L, Hgb 7.1 L D, Hct 24.9 L, MCV 78.1 L, MCH 22.3 L, MCHC 28.5 L, RDW 17.4, Plt Count 257, MPV 10.0, Neut % (Auto) 71.1, Lymph % (Auto) 20.3, [place] % (Auto) 7.2, Eos % (Auto) 0.3, Baso % (Auto) 0.4, Neut # (Auto) 7.6, Lymph # (Auto) 2.2, [place] # (Auto) 0.8, Eos # (Auto) 0.0, Baso # (Auto) 0.0, Sodium 137, Potassium 3.7 D, Chloride 101, Carbon Dioxide 34 H, Anion Gap 5.7, BUN 8 D, Creatinine 0.60, Estimated Creat Clear 85, Estimated GFR 99, Est GFR ( Amer) 120, Glucose 97 D, Calcium 8.2 L, Magnesium 1.8, Total Bilirubin 0.4, AST 24, ALT 19, Alkaline Phosphatase 65, Total Protein 5.7 L, Albumin 3.5, Globulin 2.2, Albumin/Globulin Ratio 1.6 I & O for Labs for Last 24 Hours: Intake & Output 05/12/24 05/13/24 05/14/24 05/15/24 11:59 11:59 11:59 11:59 Intake Total 490 / 490 Output Total 0 / 0 Balance 490 / 490 Weight 223 lb 6.4 oz Constitutional: no acute distress and chronically ill appearing Head: Present normocephalic Respiratory: Present able to speak in complete sentences Cardiac: Present Reg Rate and Rhythm GI: Present soft Results Labs 05/15/24 05:12 05/15/24 05:12 Labs: Laboratory Results - last 24 hr 05/14/24 14:43: Iron 34 L, TIBC 455, Iron Saturation 7.29746 L, HCV Ab JORDEN w/Rflx PCR Qn Negative, HIV Ag/Ab Combo Qual Negative 05/14/24 14:53: VBG pH 7.43 H, VBG pCO2 46.0, VBG pO2 77.4 H, VBG HCO3 29.6, VBG Total CO2 31.1 H, VBG O2 Saturation 95.0 H, VBG Base Excess 5.3 H, VBG Lactic Acid 1.6 05/14/24 14:55: Chlamy pneumoniae PCR Not detected, Adenovirus (PCR) Not detected, B. pertussis DNA (PCR) Not detected, Coronavirus OC43 (PCR) Not detected, Coronavirus HKU1 (PCR) Not detected, Coronavirus 229E (PCR) Not detected, SARS-CoV-2 (PCR) Not detected, Coronavirus NL63 (PCR) Not detected, Human Metapneumovir PCR Not detected, Influenza A (H1) PCR Not detected, Influ A (H1N1/09) PCR Not detected, Influenza A (H3) PCR Not detected, Influenza Type A (PCR) Not detected, Influenza Type B (PCR) Not detected, M. pneumoniae (PCR) Not detected, Parainfluenza 1 (PCR) Not detected, Parainfluenza 2 (PCR) Not detected, Parainfluenza 3 (PCR) Not detected, Parainfluenza 4 (PCR) Not detected, RSV (PCR) Not detected, Entero/Rhino (PCR) Not detected 05/14/24 15:00: WBC 10.9 H, RBC 3.22 L, Hgb 6.7 L*, Hct 24.4 L, MCV 75.8 L, MCH 20.8 L, MCHC 27.5 L, RDW 17.7 H, Plt Count 256, MPV 10.1, Neut % (Auto) 76.2, Lymph % (Auto) 15.6, [place] % (Auto) 5.9, Eos % (Auto) 0.9, Baso % (Auto) 0.5, N eut # (Auto) 8.3 H, Lymph # (Auto) 1.7, [place] # (Auto) 0.6, Eos # (Auto) 0.1, Baso # (Auto) 0.1, PT 10.5, INR 0.94, Sodium 138, Potassium 3.0 L, Chloride 97 L , Carbon Dioxide 35 H, Anion Gap 9.0, BUN 6 L, Creatinine 0.60, Estimated Creat Clear 85, Estimated GFR 99, Est GFR ( Amer) 120, Glucose 140 H D, Calcium 8.1 L, Magnesium 1.9, Total Bilirubin 0.4, AST 24, ALT 23, Alkaline Phosphatase 73, Troponin I < 0.01, NT-Pro-B Natriuret Pep 149 H, Total Protein 6.3, Albumin 3.8, Globulin 2.5, Albumin/Globulin Ratio 1.5, Procalcitonin 0.071, Blood Type B Positive, Antibody Screen Negative, Crossmatch (AHG) See Detail 05/14/24 17:52: Urine Color Yellow, Urine Appearance Clear, Urine pH 6.5, Ur Specific [place] 1.020, Urine Protein Negative, Urine Glucose (UA) Negative, Urine Ketones Negative, Urine Blood Negative, Urine Nitrate Negative, Urine Bilirubin Negative, Urine Urobilinogen 0.2, Ur Leukocyte Esterase Trace, Urine RBC 5-10, Urine WBC 20-50, Ur Squamous Epith Cells 20-50, Urine Bacteria 2+ 05/14/24 22:15: Hgb 7.9 L D, Hct 27.5 L, Troponin I < 0.01 05/15/24 01:05: Troponin I < 0.01 05/15/24 05:12: WBC 10.7, RBC 3.19 L, Hgb 7.1 L D, Hct 24.9 L, MCV 78.1 L, MCH 22.3 L, MCHC 28.5 L, RDW 17.4, Plt Count 257, MPV 10.0, Neut % (Auto) 71.1, Lymph % (Auto) 20.3, [place] % (Auto) 7.2, Eos % (Auto) 0.3, Baso % (Auto) 0.4, Neut # (Auto) 7.6, Lymph # (Auto) 2.2, [place] # (Auto) 0.8, Eos # (Auto) 0.0, Baso # (Auto) 0.0, Sodium 137, Potassium 3.7 D, Chloride 101, Carbon Dioxide 34 H, Anion Gap 5.7, BUN 8 D, Creatinine 0.60, Estimated Creat Clear 85, Estimated GFR 99, Est GFR ( Amer) 120, Glucose 97 D, Calcium 8.2 L, Magnesium 1.8, Total Bilirubin 0.4, AST 24, ALT 19, Alkaline Phosphatase 65, Total Protein 5.7 L, Albumin 3.5, Globulin 2.2, Albumin/Globulin Ratio 1.6 Assessment and Plan *Assessment and plan (1) Iron deficiency anemia: Status: Acute Qualifiers: Iron deficiency anemia type: unspecified iron deficiency Qualified Code(s): D50.9 - Iron deficiency anemia, unspecified Category: Medical Code(s): D50.9 - Iron deficiency anemia, unspecified Plan Plan to proceed with upper endoscopy for evaluation of possible GI etiology for significant iron deficiency anemia
--- NOTE | 2024-05-15 09:46 | CT_ITS ---
FINAL REPORT CLINICAL HISTORY: carotid stenosis COMPARISON: None FINDINGS: CTA HEAD TECHNIQUE: Thin section axial CT with contrast with 3D MIP reconstruction This study was performed with techniques to keep radiation doses as low as reasonably achievable, (ALARA). Individualized dose reduction techniques using automated exposure control or adjustment of mA and/or kV according to the patient's size were employed. FINDINGS: No aneurysm is seen. Major intracranial vessels are patent without significant stenosis. . The A1 segment of the right MAJOR is aplastic is a normal variant. IMPRESSION: Unremarkable This study was performed using automated techniques to achieve radiation exposure as low as reasonably achievable Reviewed, Interpreted and Dictated by Johan Ayala MD Transcribed by Aneta Nichole Authenticated and [facility]
--- NOTE | 2024-05-15 09:46 | CT_ITS ---
FINAL REPORT CLINICAL HISTORY: carotid stenosis COMPARISON: None FINDINGS: CT NECK ANGIO, WITHOUT AND WITH CONTRAST TECHNIQUE: Thin section axial CT with contrast with multiplanar 3D MIP reconstruction. This study was performed with techniques to keep radiation doses as low as reasonably achievable, (ALARA). Individualized dose reduction techniques using automated exposure control or adjustment of mA and/or kV according to the patient''s size were employed. NASCET criteria and technique was utilized during interpretation. FINDINGS: Aortic arch: Arch shows no significant narrowing. Great vessel origins are widely patent. Right carotid: High-grade regular mildly ulcerated stenosis of the proximal right internal carotid artery up to 80%. Left carotid: Minimal plaque disease without evidence of stenosis. Vertebrals: Left vertebral artery is dominant. Both vertebral arteries are widely patent. 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 This study was performed using automated techniques to achieve radiation exposure as low as reasonably Reviewed, Interpreted and Dictated by Johan Ayala MD Transcribed by Aneta Nichole Authenticated and [facility]
[2024-05-15 09:48] LABS: Vitamin B12 256 pg/mL (239-931)
--- NOTE | 2024-05-15 09:53 | CA_ITS ---
APPROVED REPORT EXAM: Comprehensive 2D, Doppler, and color-flow Echocardiogram Multilith Operator: Coral Raymond RVT Ht: 5 ft 6 in Wt: 223lbs BSA: 2.09 BP: 134/87 mmHg Indications: PRE-OP,CAD,ANEMIA,COPD,O2 DEPENDENT 2D Dimensions LA Volume 46.40 mL LA Volume Index 22.10 mL/m2 (M/F) 16-34 M-Mode Dimensions RVDd 2.47 cm (0.9-2.6) LA Diam 3.75 cm (1.9-4.0) LVDd 5.53 cm (3.5-5.7) LVDs 3.95 cm (3.5-5.7) IVSd 0.55 cm (0.6-1.1) PWd 0.64 cm (0.6-1.1) EF (Teich) 54.50% FS 28.60% EDV (Teich) 149.30 mL TAPSE 2.26 (<1.7) ESV (Teich) 67.90 mL LV Diastology E Decel Time 160 (160-240 msec) E/A Ratio 1.4 Aortic Valve NADYA Index 1.70 cm2/m2 AoV Peak Raul. 143.0 (50-130 cm/s) AO Peak GR. 8.20 mmHg AO Mean GR. 4.10 (<5 mmHg) AO VTI 27.6 (18-25 cm) NADYA (VTI) 3.65 (2.5-4.5 cm2) Mitral Valve MV E Max Raul. 113.0 (40-130 cm/s) MV A Velocity 82.0 (40-130 cm/s) E/A Ratio 1.37 MV PHT 47.0 ms Pulmonary Valve PV Peak Velocity 60.0 (50-150 cm/s) Tricuspid Valve TR P. Velocity 155.00 cm/s RAP Estimate 10.00 mmHg RVSP 19.60 mmHg Left Ventricle The left ventricle is normal size. The left ventricular systolic function is normal. The left ventricular ejection fraction is within the normal range. There is increased LV wall thickness. There is normal LV segmental wall motion. Diastolic function is indeterminate. LVEF is 60%. Right Ventricle Right ventricle is mildly dilated. The right ventricular systolic function is normal. Atria The left atrium size is normal. The right atrium size is normal. There is no Doppler evidence of interatrial shunt. Aortic Valve The aortic valve is mildly thickened. There is no aortic valvular stenosis. No aortic regurgitation is present. Mitral Valve The mitral valve is normal in structure. No evidence of mitral valve stenosis. Trace mitral regurgitation. Tricuspid Valve Tricuspid valve is grossly normal in structure and function. Trace tricuspid regurgitation. There is insufficient TR jet to estimate RVSP. Pulmonic Valve The pulmonary valve is normal in structure. Trace pulmonic regurgitation. Great Vessels The aortic root is normal in size. The ascending aorta is not well visualized. IVC is normal in size and collapses >50% with inspiration. Pericardium There is no pericardial effusion. Other Information Study Quality: Fair Conclusion Normal biventricular systolic function. Mild RV dilation. No significant valvular stenosis or regurgitation. Electronically signed by : Sofie Castle MD 05/15/2024 10:52:55
--- NOTE | 2024-05-15 10:02 | HMH.PHAINT1 ---
Pharmacy Intervention Comments: HOME MEDICATION LIST VERIFIED USING LIST FROM OUTPATIENT PHARMACY AND PT INTERVIEW
[2024-05-15 10:39] LABS: Microscopic, Urine URINE MICROSCOPIC (MICROSCOPIC)
[2024-05-15 10:44] LABS: Appearance,Urine SL CLOUDY (Clear); Blood, Urine Negative (Negative); Color,Urine AMBER (Yellow); Glucose,Urine (UA) Negative (Negative); Ketones,Urine Negative (Negative); Leukocyte Esterase,Urine Negative (Negative); Nitrate,Urine Negative (Negative); Protein,Urine TRACE (Negative); Specific Gravity, Urine >= 1.030 (1.005-1.030)
--- NOTE | 2024-05-15 10:44 | P.CONCA_ITS ---
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 with surgery this morning and cardiology was consulted for clearance. 3. The patient does have a history of coronary artery disease status post stenting in 2016 to the right coronary artery. She has remained on dual antiplatelet therapy with Effient and aspirin since that time. She denies any chest pain. Her troponins are negative. No plans for invasive left cardiac catheterization at this time. And as mentioned above we will hold her Effient and aspirin due to her profound anemia until she has been scoped. 4. We will obtain an echocardiogram to evaluate her LV function for preoperative risk stratification. 5. Her blood pressure is well-controlled. 6. Her LDL goal is less than 55. Her LDL is 60. She is on a statin. 7. The patient does have a known history of carotid artery stenosis. Her right ICA 70 to 99% blocked and left was 20 to 49% blocked in 2019. The patient has been referred to Dr. Moon multiple times multiple years ago for intervention for her severe carotid artery stenosis. The patient reports that she has seen the surgeon and he has described the surgery to her, she just never proceeded with the surgery. The patient was initially set up for carotid endarterectomy surgery in February 2017. Then she states then after COVID she kind of just lost track of time and has not went to have the surgery done. She does mention that she did contact Dr. Moon's office recently and they are still willing to do the surgery she just needs an appointment to see them again which she has not scheduled. Will get the patient referred back to CT surgery for consideration of carotid endarterectomy. CTA of the neck is pending today. 8. Further recommendations will be made pending the patient's response to treatment and the results of her echocardiogram today. Thank you for the opportunity to help participate in the care of this patient. All recommendations and orders are per Dr. Castle. Addendum: Echocardiogram shows a normal ejection fraction and no significant valve disease. The patient is considered at high operative risk, this risk is non-modifiable at this time and is unlikely to be further mitigated by additional pre-operative cardiac work-up. Accordingly, and if deemed surgically feasible, the patient may undergo surgery without additional cardiac testing.? Please closely monitor her hemodynamics, especially her blood pressure, marissa and postoperatively due to her severe carotid artery stenosis. Post-operative, routine care is recommended. Following EGD/colonoscopy, the patient should resume DAPT with Effient and Aspirin as well as PPI if bleeding source identified. If no bleeding source identified, then restart Aspirin and PPI only, No Effient.
[2024-05-15 10:52] LABS: Bilirubin,Urine 1+ (Negative)
[2024-05-15 10:53] LABS: Bacteria,Urine 1+ /lpf; WBC,Urine Occasional #/hpf (0-3)
[2024-05-15] MEDS: SODIUM CHLORIDE 0.9% 10ML SYR (RAD ONLY) 10 ML IV (10:58)
[2024-05-15] MEDS: 0.9 % SODIUM CHLORIDE 50 ML VIAL IV (10:58)
[2024-05-15] MEDS: IOPAMIDOL-370 (76%);100ML BOTTLE 80 ML IV (10:58)
--- NOTE | 2024-05-15 12:48 | P.PCN_ITS ---
Procedure: Date: 05/15/24 Patient Date of :: 1955 Procedure Performed:: Esophagogastroduodenoscopy Indications:: Patient is a 69-year-old female with history of COPD/emphysema on oxygen, coronary artery disease with previous stenting, 90% right carotid artery stenosis, on aspirin and prasugrel, hyperlipidemia, hypothyroidism, iron deficiency anemia, history of SVT. She has had progressive fatigue and d ecreased exercise tolerance with some dyspnea. She was found to have low hemoglobin on blood work. This was consistent with iron deficiency anemia. Patient does take pantoprazole. she was admitted for inpatient management. She was transfused a unit of packed red blood cells. It was felt that she would warranted EGD. After her hemoglobin was 6.7 she was transfused 1 unit of packed red blood cells with resultant hemoglobin of 7.9. However, this morning her hemoglobin is 7.1. . Performing Provider:: Kain Rich MD Referring Provider:: Duncan Whitman Sedation:: MAC sedation Procedure:: Patient history was obtained and appropriate physical examination was performed. Patient's medications and allergies were reviewed. Informed consent was obtained after explaining the benefits, alternatives, and risks of the procedure including, but not limited to, bleeding, perforation, missed lesions, and adverse reaction to anesthesia medications. Patient was transported to endoscopy procedure room. Patient was connected to monitoring devices. Throughout the procedure the patient's blood pressure, pulse, and oxygen saturations were monitored continuously. Patient identification and planned procedure were verified by the staff. Patient was positioned in lateral decubitus position. Olympus endoscope was inserted via the oropharynx. Overall the esophagus appeared unremarkable. Gastroesophageal junction was encountered at approximately 40 cm from the incisors. Stomach was cannulated and insufflated. There was some bilious fluid which was irrigated and suctioned free. Retroflexion revealed no evidence of any appreciable hiatal hernia. There is some mild diffuse gastropathy. However in the prepyloric location there was moderate nonerosive gastritis and in the mid body of the stomach there were a couple of areas of punctate heme material with no active bleeding. At the pylorus there was scarring likely consistent with an old healed ulcer. Pylorus was traversed. Duodenal bulb and duodenal sweep appeared unremarkable. Biopsies were not obtained as the patient is anticoagulated. Stomach was desufflated and the endoscope was withdrawn. Findings:: Gastroesophageal junction at 40 cm Mild diffuse gastritis Moderate nonerosive prepyloric gastritis, possibly bile reflux related Several punctate areas of heme material in the mid body of the stomach with no evidence of active bleeding . Recommendations:: Anemia may be chronic and not GI in nature. However may consider treating for possible bile reflux gastritis. Complications:: None immediately apparent Estimated blood obtained (mL): 0 Colonoscopy Component Colonoscopy Component Was a colonoscopy performed during today's procedure?: No
--- NOTE | 2024-05-15 13:03 | P.PNANES_ITS ---
[facility] Disclaimer: The information contained in this section may have been updated after the patient was seen, as this information can be updated by other users. Medical History (Updated 05/15/24 @ 11:09 by Fariba Mckenzie APRN) Pre-operative cardiovascular examination Dysphagia Migraine GERD (gastroesophageal reflux disease) Depression Metatarsal bone fracture Hypothyroidism Vitamin D deficiency Ear pain Heart murmur Tobacco abuse Carotid artery disease COPD (chronic obstructive pulmonary disease) HLD (hyperlipidemia) HHD (hypertensive heart disease) CAD (coronary artery disease) Surgical History H/O tubal ligation History of appendectomy Family History Other Kidney disease Social History Smoking Status: Former smoker alcohol intake: never substance use type: denies use current occupational status: disabled Travel in the last 8 weeks: None household members: children housing: house [facility] Anesthesia Checklist Patient Identification Patient Identification: Arm Band and Verbal (Name & ) Structural Data Admitted From: Inpatient Planned Operative Procedure/s: egd Consent for Planned Operative Procedure(s) Verified: Yes Verified Documents: Surgical Consent NPO Status Verified Time NPO: 00:00 Additional verifications Patient : No Anesthesia Reactions: No Hx Blood Transfusions: No Cardiovascular Assessment Heart Sounds: S1 & S2 Pulse Strength: Baseline Pulse Rhythm: Regular Peripheral Edema: No Airway Assessment Mallampati Score:: Class I C-Spine Mobility Assessed: Yes TMJ Mobility Assessed: Yes Dentition: Edentulous Neurological Assessment Level of Consciousness: Awake and Alert Hx Seizures: No Anesthesia Plan Anesthesia Risk discussed: Yes ASA Class: III Anesthesia Type: MAC
[2024-05-15 15:15] LABS: Occult Blood,Stool Negative (Negative)
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
[2024-05-15] MEDS: MONTELUKAST SODIUM 10MG TAB 10 MG PO (20:04)
[2024-05-15] MEDS: ATORVASTATIN 40MG TABLET 40 MG PO (20:04)
[2024-05-15] MEDS: GUAIFENESIN/DEXTROMETHORPHAN 200MG/20MG 10ML UDC 10 ML PO (20:05)
[2024-05-16] VITALS (16 sets, daily range): BP systolic 99–135; BP diastolic 46–66; PULSE 78–107; RESP 18; TEMP 36.5–37.3; O2SAT 90–98; BMI 37.4
[2024-05-16] MEDS: IPRATROPIUM/ALBUTEROL 3 ML NEB IH ×3 (00:02→11:13)
[2024-05-16] MEDS: GUAIFENESIN/DEXTROMETHORPHAN 200MG/20MG 10ML UDC 10 ML PO ×2 (03:28→11:37)
--- NOTE | 2024-05-16 04:22 | PC.NURSE ---
Pt. is alert and orientated x 4. Pt. on oxygen 2 liters per [place]. Pt. has a harsh non productive cough. States that she is feeling ok. Pt. thinks she may be discharged home today. Pt. has not slept much overnight. She states that she takes little naps. will sleep for and hour and than be awake for a few hours. Pt. eating and drinking fluids tolerating well. VSS, Pt. personal items and call saba in reach.
[2024-05-16] MEDS: METHOCARBAMOL 500MG TABLET 500 MG PO (05:28)
[2024-05-16] MEDS: FLUTICASONE/UMECLIDIN/VILANTER 100/62.5/25MCG INHALER 1 PUFF IH (06:22)
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
[2024-05-16 07:53] LABS: Basophils % 0.2 % (0.1-2.0); Eosinophils # 0.1 K/mm3 (0.0-0.4); Eosinophils % 1.1 % (0.1-12.0); Hematocrit 24.6 % (37.0-47.0); Lymphocytes # 2.4 K/mm3 (0.7-4.5); Lymphocytes % 19.5 % (10-50); Mean Corpuscular HGB Conc 28.5 g/dL (31.8-35.4); Mean Corpuscular Hemoglobin 22.2 pg (27.0-31.2); Mean Corpuscular Volume 77.8 fl (81-99); Mean Platelet Volume 9.6 fl (7.4-10.4); Monocytes # 0.7 K/mm3 (0.1-1.0); Monocytes % 5.4 % (1.7-9.3); Neutrophils # 8.9 K/mm3 (1.8-7.8); Neutrophils % 71.9 % (37.0-80.0); Platelet Count 244 K/mm3 (142-424); Red Blood Count 3.16 M/mm3 (4.20-5.40); Red Cell Distribution Width 17.9 % (11.5-17.5); White Blood Count 12.3 K/mm3 (4.8-10.8)
[2024-05-16 07:57] LABS: Albumin Level 3.4 g/dl (3.5-5.0); Chloride 100 mmol/L (98-107); Potassium 3.6 mmoL/L (3.5-5.1); Sodium 136 mmol/L (136-145)
[2024-05-16 08:00] LABS: Alanine Aminotransferase 24 U/L (12-78); Albumin/Globulin Ratio 1.5 (1.1-1.8); Alkaline Phosphatase 60 U/L (38-126); Anion Gap 9.6 mEq/L (5-15); Aspartate Amino Transferase 25 U/L (14-36); Bilirubin,Total 0.5 mg/dl (0.2-1.3); Blood Urea Nitrogen 8 mg/dl (7-17); Carbon Dioxide 30 mmol/L (22.0-30.0); Creatinine Clearance Estimated 89 mL/min (50-200); Estimated Glomerular Filt Rate 83 ml/min (>60); GFR (African American) 100 ML/MIN (>60); Globulin 2.3 g/dL (1.3-3.2); Total Protein,Serum 5.7 g/dl (6.3-8.2)
[2024-05-16 08:01] LABS: Calcium 8.2 mg/dl (8.4-10.2); Glucose 176 mg/dl (74-100)
[2024-05-16] MEDS: FLUTICASONE PROP 50MCG NASAL SPRAY 16GM 1 SPRAY NS (08:13)
[2024-05-16] MEDS: LEVOTHYROXINE 25MCG (0.025MG) TAB 25 MCG PO (08:14)
[2024-05-16] MEDS: ATENOLOL 25MG TABLET 25 MG PO (08:14)
[2024-05-16 14:35] LABS: Hematocrit 27.6 % (37.0-47.0)
--- NOTE | 2024-05-19 10:35 | SW/DCPLANNER ---
phone patient x2. Patients phone rings and not able to leave message. Fantasma Antoine
== END 2024-05-16 15:22 | disposition home or self-care (01) | DRG 812 ==
LOC: ER 17:48 → 2ND 18:29
PROVIDERS: Emergency Medicine; Nurse Practitioner Family; Physician Assistant; Surgery; Admitting Provider Internal Medicine Adolescent Medicine; Emergency Provider Emergency Medicine; PCP Internal Medicine; Visit Provider Internal Medicine Adolescent Medicine
PROC: 0DJ08ZZ Inspection of Upper Intestinal Tract, Via Natural or Artificial Opening Endoscopic (ICD-10-PCS; principal; 2024-05-15 11:35)
DX: D50.0 Iron deficiency anemia secondary to blood loss (chronic) (principal); I47.10 Supraventricular tachycardia, unspecified; E03.9 Hypothyroidism, unspecified; I10 Essential (primary) hypertension; K21.9 Gastro-esophageal reflux disease without esophagitis; I25.118 Atherosclerotic heart disease of native coronary artery with other forms of angina pectoris; J44.9 Chronic obstructive pulmonary disease, unspecified; J43.9 Emphysema, unspecified; E87.6 Hypokalemia; E83.51 Hypocalcemia; E66.9 Obesity, unspecified; I65.21 Occlusion and stenosis of right carotid artery; D17.79 Benign lipomatous neoplasm of other sites; D35.01 Benign neoplasm of right adrenal gland; S22.43XS Multiple fractures of ribs, bilateral, sequela; V89.2XXS Person injured in unspecified motor-vehicle accident, traffic, sequela; Z68.37 Body mass index [BMI] 37.0-37.9, adult; Z79.82 Long term (current) use of aspirin; Z79.890 Hormone replacement therapy; Z99.81 Dependence on supplemental oxygen; Z79.02 Long term (current) use of antithrombotics/antiplatelets; Z79.899 Other long term (current) drug therapy; Z87.891 Personal history of nicotine dependence; Z95.5 Presence of coronary angioplasty implant and graft
CPT/HCPCS: 36415; 70496; 70498; 71250; 80053; 81001; 82272; 82607; 82803; 83540; 83550; 83735; 83880; 84145; 84484; 85014; 85018; 85025; 85610; 86803; 86850; 87086; 87088; 87186; 87389; 87633; 93005; 93306; 94640; 94761; 99291; G0328; J1756; J7620; P9016; Q9967

== ENCOUNTER 2024-05-18 13:28 | Outpatient (CLI) | payer MEDICARE, OTHER, SELFPAY ==
[2024-05-13 18:13] LABS: Basophils # 0.1 K/mm3 (0-0.2); Basophils % 0.4 % (0.1-2.0); Eosinophils # 0.2 K/mm3 (0.0-0.4); Eosinophils % 1.3 % (0.1-12.0); Hematocrit 26.1 % (37.0-47.0); Hemoglobin 7.2 g/dL (12.2-16.2); Lymphocytes # 2.3 K/mm3 (0.7-4.5); Lymphocytes % 18.1 % (10-50); Mean Corpuscular HGB Conc 27.6 g/dL (31.8-35.4); Mean Corpuscular Hemoglobin 21.2 pg (27.0-31.2); Mean Platelet Volume 10.3 fl (7.4-10.4); Monocytes # 0.7 K/mm3 (0.1-1.0); Monocytes % 5.8 % (1.7-9.3); Neutrophils # 9.3 K/mm3 (1.8-7.8); Neutrophils % 73.8 % (37.0-80.0); Platelet Count 303 K/mm3 (142-424); Red Blood Count 3.39 M/mm3 (4.20-5.40); Red Cell Distribution Width 17.9 % (11.5-17.5); White Blood Count 12.6 K/mm3 (4.8-10.8)
[2024-05-13 19:24] LABS: Alanine Aminotransferase 20 U/L (12-78); Albumin Level 3.9 g/dl (3.5-5.0); Albumin/Globulin Ratio 1.6 (1.1-1.8); Alkaline Phosphatase 80 U/L (38-126); Anion Gap 10.2 mEq/L (5-15); Aspartate Amino Transferase 23 U/L (14-36); Bilirubin,Total 0.3 mg/dl (0.2-1.3); Blood Urea Nitrogen 7 mg/dl (7-17); Calcium 8.6 mg/dl (8.4-10.2); Carbon Dioxide 35 mmol/L (22.0-30.0); Chloride 96 mmol/L (98-107); Chol/HDL Ratio 3.3 (1-3.5); Cholesterol 139 mg/dl (140-200); Estimated Glomerular Filt Rate 83 ml/min (>60); GFR (African American) 100 ML/MIN (>60); Globulin 2.4 g/dL (1.3-3.2); Glucose 105 mg/dl (74-100); HDL Cholesterol 42 mg/dl (40-60); Potassium 3.2 mmoL/L (3.5-5.1); Sodium 138 mmol/L (136-145); Total Protein,Serum 6.3 g/dl (6.3-8.2); Triglycerides 129 mg/dl (30-150); VLDL Cholesterol 26 mg/dL (0-40)
[2024-05-13 19:35] LABS: Direct LDL Cholesterol 66.49 mg/dL (100-129); NT Pro Brain Natriuretic Pep. 240 pg/mL (0-125)
[2024-05-13 19:44] LABS: 25-OH Vitamin D, Total 24.3 ng/mL (30-100)
[2024-05-13 19:57] LABS: Thyroid Stimulating Hormone 1.94 uIU/mL (0.465-4.68)
== END 2024-05-18 23:59 | disposition home or self-care (01) ==
LOC: LAB.DROPOF 13:28
PROVIDERS: PCP Family Medicine; Visit Provider Family Medicine
DX: E03.9 Hypothyroidism, unspecified (principal); I50.9 Heart failure, unspecified; E55.9 Vitamin D deficiency, unspecified; J44.9 Chronic obstructive pulmonary disease, unspecified; D50.9 Iron deficiency anemia, unspecified; I47.10 Supraventricular tachycardia, unspecified; I65.23 Occlusion and stenosis of bilateral carotid arteries; D17.9 Benign lipomatous neoplasm, unspecified; I25.118 Atherosclerotic heart disease of native coronary artery with other forms of angina pectoris; E78.2 Mixed hyperlipidemia
CPT/HCPCS: 80053; 80061; 82306; 83880; 84443; 85025

== ENCOUNTER 2024-06-01 14:18 | Outpatient (CLI) | payer MEDICARE, OTHER, SELFPAY ==
[2024-06-01 21:08] LABS: Basophils # 0.1 K/mm3 (0-0.2); Basophils % 0.5 % (0.1-2.0); Eosinophils # 0.1 K/mm3 (0.0-0.4); Eosinophils % 0.8 % (0.1-12.0); Hematocrit 34.7 % (37.0-47.0); Lymphocytes # 2.2 K/mm3 (0.7-4.5); Lymphocytes % 21.4 % (10-50); Mean Corpuscular HGB Conc 28.8 g/dL (31.8-35.4); Mean Corpuscular Hemoglobin 23.2 pg (27.0-31.2); Mean Corpuscular Volume 80.5 fl (81-99); Mean Platelet Volume 10.8 fl (7.4-10.4); Monocytes # 0.7 K/mm3 (0.1-1.0); Monocytes % 6.6 % (1.7-9.3); Neutrophils # 7.4 K/mm3 (1.8-7.8); Neutrophils % 70.3 % (37.0-80.0); Platelet Count 310 K/mm3 (142-424); Red Blood Count 4.31 M/mm3 (4.20-5.40); White Blood Count 10.5 K/mm3 (4.8-10.8)
[2024-06-01 22:49] LABS: Alanine Aminotransferase 35 U/L (12-78); Albumin Level 4.1 g/dl (3.5-5.0); Albumin/Globulin Ratio 1.7 (1.1-1.8); Alkaline Phosphatase 67 U/L (38-126); Anion Gap 8.6 mEq/L (5-15); Aspartate Amino Transferase 38 U/L (14-36); Bilirubin,Total 0.7 mg/dl (0.2-1.3); Blood Urea Nitrogen 8 mg/dl (7-17); Carbon Dioxide 33 mmol/L (22.0-30.0); Chloride 97 mmol/L (98-107); Estimated Glomerular Filt Rate 83 ml/min (>60); GFR (African American) 100 ML/MIN (>60); Globulin 2.4 g/dL (1.3-3.2); Glucose 102 mg/dl (74-100); Potassium 3.6 mmoL/L (3.5-5.1); Sodium 135 mmol/L (136-145); Total Protein,Serum 6.5 g/dl (6.3-8.2)
== END 2024-06-01 23:59 | disposition home or self-care (01) ==
LOC: LAB.DROPOF 06-02 17:34
PROVIDERS: PCP Family Medicine; Visit Provider Family Medicine
DX: D50.9 Iron deficiency anemia, unspecified (principal); D53.9 Nutritional anemia, unspecified; E87.6 Hypokalemia
CPT/HCPCS: 80053; 85025

== ENCOUNTER 2024-06-27 18:16 | Emergency (ER) | payer MEDICARE, OTHER, SELFPAY ==
[2024-06-27] VITALS (9 sets, daily range): BP systolic 102–138; BP diastolic 45–95; PULSE 56–77; RESP 20; TEMP 36.8; O2SAT 98–100; BMI 35.2
--- NOTE | 2024-06-27 18:41 | CT_ITS ---
PROCEDURE INFORMATION: Exam: CT Lumbar Spine Without Contrast Exam date and time: 06/27/2024 7:42 PM Age: 69 years old Clinical indication: Low back pain TECHNIQUE: Imaging protocol: Computed tomography of the lumbar spine without contrast. Radiation optimization: All CT scans at this facility use at least one of these dose optimization techniques: automated exposure control; mA and/or kV adjustment per patient size (includes targeted exams where dose is matched to clinical indication); or iterative reconstruction. COMPARISON: CT LUMBAR SPINE WO [facility] 09/27/2023 8:55 PM FINDINGS: Bones/joints: No acute fracture. Normal alignment. Vertebral body heights grossly preserved. Mild osteopenia. L1/2: No significant disc herniation or bulge. Facet/ligamentum flavum hypertrophy. No central canal or neural foraminal narrowing. L2/3: Minimal degenerative broad-based disc/osteophyte complex. Facet/ligamentum flavum hypertrophy. No central canal or neural foraminal narrowing. L3/4: Minimal degenerative broad-based/osteophyte complex. Facet/ligamentum flavum hypertrophy. Mild central canal narrowing. No neural foraminal narrowing. L4/5: Mild degenerative broad-based disc/osteophyte complex. Facet/ligamentum flavum hypertrophy. Mild central canal narrowing. Mild bilateral neural foraminal narrowing. L5/S1: No significant disc herniation or bulge. No central canal or neural foraminal narrowing. Soft tissues: Unremarkable. IMPRESSION: Mild central canal narrowing of L3/4 and L4/5 from combination degenerative disc/osteophyte complex and facet arthropathy.
[2024-06-27] MEDS: ORPHENADRINE CITRATE 60MG/2ML VIAL 60 MG IV (18:48)
[2024-06-27] MEDS: MORPHINE 2MG/ML SYRINGE 2 MG IV (18:48)
--- NOTE | 2024-06-27 19:04 | ED_ITS ---
<Statement entered by Gisela Godinez DO - 06/28/24 00:13> I was consulted by the BILLY, and we discussed the complexity of the problems being addressed. I approved the treatment and management plan for this patient's care in the emergency department, thus performing a substantive portion of the medical decision making. Patient complained of exacerbation of chronic low back pain from chronic spine fractures after lifting a heavy box. No alarm findings/symptoms concerning for cauda equina syndrome or spinal cord compression. She is neurologically intact in her lower extremities. CT of the lumbar spine obtained. I independently interpreted CT imaging prior to radiology read and noted no obvious acute fracture, but she does have a lot of chronic degenerative change. Given acute on chronic injury, I elected to provide patient with prescription for short course of Swisher with instructions for very close follow-up with primary care. Ernie was obtained, patient was given instructions for safe use. She was discharged with strict return precautions and instructions for close follow-up with primary care. Gisela Godinez DO Discharge Plan Disposition Patient Disposition: Home, Self-Care Prescriptions Prescriptions: New hydrocodone-acetaminophen 5-325 mg tablet 1 tab PO Q8H PRN (Reason: pain) Qty: 8 0RF No Action aspirin [Aspir-81] 81 mg tablet,delayed release (DR/EC) 81 mg PO DAILY acetaminophen 500 mg capsule 500 mg PO Q6H PRN (Reason: Pain) lidocaine [Lidoderm] 5 % adhesive patch,medicated 1 patch topical DAILY Qty: 30 0RF Rx Instructions: leave on most painful area for up to 12 hrs furosemide 20 mg tablet 20 mg PO BID Qty: 60 3RF Debrox 6.5 % drops 5 drp otic (ear) BID 4 Days Qty: 15 0RF tramadol 50 mg tablet 50 mg PO BID Qty: 60 0RF Trelegy Ellipta 100-62.5-25 mcg blister with device See Rx Instructions .ROUTE .COMPLEX Qty: 60 2RF Dose Instruction: INHALE 1 PUFF BY MOUTH EVERY DAY Rx Instructions: INHALE 1 PUFF BY MOUTH EVERY DAY ipratropium-albuterol 0.5 mg-3 mg(2.5 mg base)/3 mL solution for nebulization 3 ml inhalation Q6H 90 Days Qty: 180 6RF meclizine 25 mg tablet 25 mg PO TID Qty: 90 2RF sennosides [senna] 8.6 mg tablet See Rx Instructions .ROUTE .COMPLEX Qty: 60 0RF Dose Instruction: TAKE ONE TABLET BY MOUTH 2 TIMES A DAY NEEDED FOR CONSTIPATION Rx Instructions: TAKE ONE TABLET BY MOUTH 2 TIMES A DAY NEEDED FOR CONSTIPATION calcium carbonate-vitamin D3 600 mg-10 mcg (400 unit) tablet 1 tab PO DAILY Qty: 90 3RF methocarbamol 500 mg tablet See Rx Instructions .ROUTE .COMPLEX Qty: 120 0RF Dose Instruction: TAKE ONE TABLET BY MOUTH FOUR TIMES A DAY Rx Instructions: TAKE ONE TABLET BY MOUTH FOUR TIMES A DAY montelukast 10 mg tablet See Rx Instructions .ROUTE .COMPLEX Qty: 90 0RF Dose Instruction: TAKE ONE TABLET BY MOUTH ONCE A DAY FOR ALLERGIES/BREATHING Rx Instructions: TAKE ONE TABLET BY MOUTH ONCE A DAY FOR ALLERGIES/BREATHING cetirizine 10 mg tablet See Rx Instructions .ROUTE .COMPLEX Qty: 90 0RF Dose Instruction: TAKE ONE TABLET BY MOUTH ONCE A DAY FOR ALLERGIES Rx Instructions: TAKE ONE TABLET BY MOUTH ONCE A DAY FOR ALLERGIES duloxetine 30 mg capsule,delayed release(DR/EC) See Rx Instructions .ROUTE .COMPLEX Qty: 90 0RF Dose Instruction: TAKE 1 CAPSULE BY MOUTH ONCE A DAY Rx Instructions: TAKE 1 CAPSULE BY MOUTH ONCE A DAY potassium chloride 20 mEq tablet extended release 20 meq PO DAILY Qty: 30 3RF guaifenesin 200 mg tablet 200 mg PO QIDP PRN (Reason: Congestion) Qty: 90 1RF famotidine 20 mg tablet 20 mg PO DAILY pantoprazole 40 mg tablet,delayed release (DR/EC) 40 mg PO DAILY ferrous sulfate [FeroSul] 325 mg (65 mg iron) tablet 325 mg PO DAILY ergocalciferol (vitamin D2) 1,250 mcg (50,000 unit) capsule 1,250 mcg PO WEEKLY losartan-hydrochlorothiazide 50-12.5 mg tablet 1 tab PO DAILY atenolol 25 mg tablet 25 mg PO DAILY levothyroxine 25 mcg tablet 25 mcg PO DAILY fluticasone propionate 50 mcg/actuation spray,suspension 1 spray intranasal DAILY rosuvastatin 40 mg tablet 40 mg PO DAILY cyanocobalamin (vitamin B-12) [Vitamin B-12] 5,000 mcg tablet, sublingual 5,000 mcg sublingual DAILY Referrals Follow up/Referrals: Marj Hughes APRN [Primary Care Provider] - See instructions Activity Restrictions/Add. Instructions Additional Instructions/Restrictions: Increase fluids and rest. Take meds as directed. Follow-up with your PCP. Clinical Impressions Clinical Impression: Strain of lumbar region, Lumbar radiculopathy Instructions Patient Instructions: DI for Low Back Pain Print Language Print Language: Yi Discharge ED Provider: Gisela Godinez General Adult HPI General Chief complaint: Back Pain/Injury Stated complaint: back pain Time Seen by Provider: 06/27/24 18:24 Mode of Arrival: EMS Source of Information: Patient, EMS and Medical Record Description of Symptoms (Recalled from ER Triage Doc. by RN): Pt c/o low back pain that began when she was lifting a 10# box off the floor. States the pain is now radiating up to mid back. She reports several years ago she had 2 fx vertebre. She also reports 7 fx ribs from a fall in September 2023 that are still healing . Denies any parathesia to BLE. Denies any loss of bladder/bowel. History of Present Illness HPI narrative: This is a 69-year-old female who presents to the ED today with complaint of low back pain that began when she was lifting a box off the floor. She states she has pain also radiating up into her mid back. She says she has broken her vertebrae from a fall that are old. She has 7 rib fractures that are not healed from last September. She has blockages in her carotids that need to be fixed but she needs cardiology approval before they are able to fix them. She has not been able to lie flat due to her rib fractures. She also has a soft tissue mass on the left side of her neck that she needs to be fixed but she also cannot have that fixed until she has had the blockages repaired. Patient has pain in these ribs and in her back. She does wear 2 L of oxygen at home. She and I discussed all of her medications. She is having some ear pain on the right side and a sore throat as well. No fevers or chills. No nausea, vomiting or diarrhea. Related Data Home Medications ?Medication ?Instructions ?Recorded ?Confirmed aspirin 81 mg tablet,delayed 81 mg PO DAILY 05/02/17 06/01/24 release (Aspir-) acetaminophen 500 mg capsule 500 mg PO Q6H PRN Pain 10/15/23 06/01/24 atenolol 25 mg tablet 25 mg PO DAILY 05/15/24 06/01/24 cyanocobalamin (vitamin B-12) 5,000 mcg sublingual DAILY 05/15/24 06/01/24 5,000 mcg sublingual tablet (Vitamin B-12) ergocalciferol (vitamin D2) 1,250 1,250 mcg PO WEEKLY 05/15/24 06/01/24 mcg (50,000 unit) capsule famotidine 20 mg tablet 20 mg PO DAILY 05/15/24 06/01/24 ferrous sulfate 325 mg (65 mg 325 mg PO DAILY 05/15/24 06/01/24 iron) tablet (FeroSul) fluticasone propionate 50 1 spray intranasal DAILY 05/15/24 06/01/24 mcg/actuation nasal spray,suspension levothyroxine 25 mcg tablet 25 mcg PO DAILY 05/15/24 06/01/24 losartan 50 mg-hydrochlorothiazide 1 tab PO DAILY 50/12.5MG 05/15/24 06/01/24 12.5 mg tablet pantoprazole 40 mg tablet,delayed 40 mg PO DAILY 05/15/24 06/01/24 release rosuvastatin 40 mg tablet 40 mg PO DAILY 05/15/24 06/01/24 Previous Rx's ?Medication ?Instructions ?Recorded lidocaine 5 % topical patch 1 patch topical DAILY #30 ea 12/03/23 (Lidoderm) furosemide 20 mg tablet 20 mg PO BID #60 tabs 02/19/24 fluticasone fur. 100 mcg-umeclid See Rx Instructions .Route 04/23/24 62.5 mcg-vilant 25 mcg .COMPLEX #60 ea inhalat.powder (Trelegy Ellipta) ipratropium 0.5 mg-albuterol 3 mg 3 ml inhalation Q6H COPD 90 days 04/29/24 (2.5 mg base)/3 mL nebulization #180 mL soln carbamide peroxide 6.5 % ear drops 5 drp otic (ear) BID 4 days #15 mL 05/13/24 (Debrox) meclizine 25 mg tablet 25 mg PO TID #90 tabs 05/18/24 sennosides 8.6 mg tablet (senna) See Rx Instructions .Route 05/21/24 .COMPLEX #60 tabs tramadol 50 mg tablet 50 mg PO BID #60 tabs 06/02/24 calcium 600 mg (as 1 tab PO DAILY #90 tabs 06/15/24 carbonate)-vitamin D3 10 mcg (400 unit) tablet cetirizine 10 mg tablet See Rx Instructions .Route 06/15/24 .COMPLEX #90 tabs duloxetine 30 mg capsule,delayed See Rx Instructions .Route 06/15/24 release .COMPLEX #90 caps methocarbamol 500 mg tablet See Rx Instructions .Route 06/15/24 .COMPLEX #120 tabs montelukast 10 mg tablet See Rx Instructions .Route 06/15/24 .COMPLEX #90 tabs potassium chloride 20 mEq 20 meq PO DAILY #30 tabs 06/15/24 tablet,extended release guaifenesin 200 mg tablet 200 mg PO QIDP PRN Congestion #90 06/16/24 tabs hydrocodone 5 mg-acetaminophen 325 1 tab PO Q8H PRN pain #8 tabs 06/27/24 mg tablet Allergies Allergy/AdvReac Type Severity Reaction Status Date / Time amoxicillin (From Augmentin) Allergy Mild Abdominal Verified 06/01/24 14:11 complaints clavulanic acid (From Allergy Mild Abdominal Verified 06/01/24 14:11 Augmentin) complaints hydrocortisone Allergy Mild Verified 06/01/24 14:11 prednisolone Allergy Mild Verified 06/01/24 14:11 prednisone Allergy Mild Verified 06/01/24 14:11 codeine (CODEINE) Allergy Unknown Verified 06/01/24 14:11 promethazine (From PHENERGAN) Allergy Unknown Verified 06/01/24 14:11 phenobarbital AdvReac Unknown Verified 06/01/24 14:11 IV dye AdvReac Unknown Uncoded 05/13/24 14:42 PFSH PFSH Disclaimer: The information contained in this section may have been updated after the patient was seen, as this information can be updated by other users. Medical History (Updated 06/27/24 @ 22:07 by Harmony Isidro (ED), PASTE [employer]INNER) Ear pain Cerumen impaction Pre-operative cardiovascular examination Dysphagia Migraine GERD (gastroesophageal reflux disease) Depression Metatarsal bone fracture Hypothyroidism Vitamin D deficiency Heart murmur Tobacco abuse Carotid artery disease COPD (chronic obstructive pulmonary disease) HLD (hyperlipidemia) HHD (hypertensive heart disease) CAD (coronary artery disease) Surgical History H/O tubal ligation History of appendectomy Family History Other Kidney disease Social History Smoking Status: Former smoker alcohol intake: never substance use type: denies use current occupational status: disabled Travel in the last 8 weeks: None household members: children housing: house Have you lived/traveled outside US in past 30 days?: No Contact w/someone who lives/traveled outside US past 30 days?: No Exposure to someone with infectious disease in past 14 days?: No Do you have a fever (greater than 100.4 F or 38 C)?: No Have you tested positive for COVID-19: No Exposed to someone with COVID-19 in past 14 days?: No Do you have a sore throat?: No Do you have a cough?: No Do you have any weakness?: No Do you have any diarrhea?: No Are you experiencing any unusual bleeding?: No Do you have any muscle aches/pain?: Yes Do you have any abdominal pain?: No Are you experiencing loss of taste or smell?: No Other Medical History Have you received the Flu Vaccine for this season: No Have you received the Pneumonia Vaccine: Yes ROS Obtained: Yes Systems reviewed as appropriate & no additional complaints except as documented Constitutional Constitutional: Reports as per HPI Physical Exam General General appearance: alert Head Head exam: atraumatic and normocephalic Eye Eye exam: Present PERRL and EOMI ENT ENT exam: Present normal oropharynx, mucous membranes moist and TM's normal bilaterally Neck Neck exam: Present full ROM and trachea midline Respiratory Respiratory exam: Present normal lung sounds bilaterally Cardiovascular Cardiovascular exam: Present regular rate, normal rhythm, normal heart sounds, +S1 and +S2 Abdominal Exam Abdominal exam: Present soft and normal bowel sounds Extremities Exam Extremities exam: Present normal inspection, full ROM and normal capillary refill Back Exam Back exam: Present tenderness and muscle spasm Neurological Exam Neurological exam: Present alert and oriented X3 Skin Skin exam: Present warm, dry and intact Medical Decision Making Medical Records Screening: Per USPSTF and CDC recommendations, given the prevalence of disease in our region, it is our hospital?s policy to screen for HIV and viral Hepatitis for all patients aged 18 and over and those with ongoing risk factors. Ernie Inquiry Pt receiving controlled substance: No Ernie was queried for this patient: No Vital Signs: 06/27/24 18:21 06/27/24 18:24 06/27/24 18:30 Temperature 98.2 F Temperature Source Oral Pulse Rate 77 74 Pulse Rate [Right] 71 Respiratory Rate 20 Blood Pressure 102/51 L 117/95 H Blood Pressure [Right Arm] 102/51 L Blood Pressure Mean [Right Arm] 68 Blood Pressure Source [Right Arm] Automatic Cuff 02 Sat by Pulse Oximetry 98 99 99 Oxygen Delivery Method Room Air Nasal Cannula Room Air Oxygen Flow Rate (LPM) 2 06/27/24 19:00 06/27/24 19:31 06/27/24 20:00 Temperature Temperature Source Pulse Rate 72 60 66 Pulse Rate [Right] Respiratory Rate Blood Pressure 120/58 L 112/53 L 123/63 Blood Pressure [Right Arm] Blood Pressure Mean [Right Arm] Blood Pressure Source [Right Arm] 02 Sat by Pulse Oximetry 100 100 100 Oxygen Delivery Method Room Air Room Air Room Air Oxygen Flow Rate (LPM) 06/27/24 20:30 06/27/24 21:00 Temperature Temperature Source Pulse Rate 56 L 57 L Pulse Rate [Right] Respiratory Rate Blood Pressure 107/45 L 130/51 L Blood Pressure [Right Arm] Blood Pressure Mean [Right Arm] Blood Pressure Source [Right Arm] 02 Sat by Pulse Oximetry 100 100 Oxygen Delivery Method Nasal Cannula Nasal Cannula Oxygen Flow Rate (LPM) 2 2 Orders (Tests/Meds): ED MEDICATIONS Discontinued Medications Generic Name Dose Route Start Last Admin Trade Name Freq PRN Reason Stop Dose Admin Hydromorphone HCl 0.5 mg 06/27/24 19:57 06/27/24 20:15 Hydromorphone 2mg/Ml Syringe IV 06/27/24 19:58 0.5 mg ONCE ONE Administration Morphine Sulfate 2 mg 06/27/24 18:41 06/27/24 18:48 Morphine 2mg/Ml Syringe IV 06/27/24 18:42 2 mg ONCE ONE Administration Orphenadrine Citrate 60 mg 06/27/24 18:41 06/27/24 18:48 Orphenadrine Citrate 60mg/2ml Vial IV 06/27/24 18:42 60 mg ONCE ONE Administration ORDERS Category Date Time Status CT lumbar spine wo con Stat Cat Scan 06/27/24 18:41 Completed Medical Decision Narrative: Insert review patient is a 69-year-old female presenting to the emergency department for evaluation of low back pain, rib pain. Patient is hemodynamically stable and nontoxic-appearing upon arrival, afebrile. Differential diagnosis includes low back pain, among others. Workup will be conducted with CT scan of low back. Formal imaging not returned at this time 2136. CT came back as degenerative disease as well as other chronic problems please see report. Patient safe for discharge home. Critical Care Critical Care Time Critical Care Time: No
--- NOTE | 2024-06-27 19:24 | PC.NURSE ---
report received from ALLEN García
[2024-06-27] MEDS: HYDROMORPHONE 2MG/ML SYRINGE 0.5 MG IV (20:15)
== END 2024-06-27 22:19 | disposition home or self-care (01) ==
PROVIDERS: Emergency Provider Emergency Medicine; PCP Family Medicine
DX: S39.012A Strain of muscle, fascia and tendon of lower back, initial encounter (principal); M54.16 Radiculopathy, lumbar region; X58.XXXA Exposure to other specified factors, initial encounter; Y93.89 Activity, other specified; H92.01 Otalgia, right ear; J02.9 Acute pharyngitis, unspecified; Z87.891 Personal history of nicotine dependence
CPT/HCPCS: 72131; 96374; 96375; 99284; J1171; J2270; J2360

== ENCOUNTER 2024-09-03 14:35 | Outpatient (CLI) | payer MEDICARE, OTHER, SELFPAY | END 2024-09-03 23:59 | disposition home or self-care (01) | LOC: RT 14:36 | PROVIDERS: PCP Family Medicine; Visit Provider Nurse Practitioner | DX: I48.91 Unspecified atrial fibrillation (principal); I44.0 Atrioventricular block, first degree; I49.1 Atrial premature depolarization; I47.19 Other supraventricular tachycardia; I49.3 Ventricular premature depolarization; I47.29 Other ventricular tachycardia; J44.9 Chronic obstructive pulmonary disease, unspecified; I25.10 Atherosclerotic heart disease of native coronary artery without angina pectoris; E78.5 Hyperlipidemia, unspecified; I77.9 Disorder of arteries and arterioles, unspecified | CPT/HCPCS: 93270 ==

== ENCOUNTER 2024-09-14 14:51 | Outpatient (CLI) | payer MEDICARE, OTHER, SELFPAY ==
[2024-09-14 18:01] LABS: Basophils # 0.1 K/mm3 (0-0.2); Basophils % 0.4 % (0.1-2.0); Eosinophils # 0.1 Kmm3 (0.0-0.4); Eosinophils % 0.8 % (0.1-12.0); Hematocrit 34.9 % (37.0-47.0); Immature Granulocytes # 0.06 10^3uL; Immature Granulocytes % 0.5 %; Lymphocytes # 3.3 K/mm3 (0.7-4.5); Lymphocytes % 26.8 % (10-50); Mean Corpuscular HGB Conc 31.5 g/dL (31.8-35.4); Mean Corpuscular Hemoglobin 26.4 pg (27.0-31.2); Mean Corpuscular Volume 83.9 fl (81-99); Mean Platelet Volume 10.7 fl (7.4-10.4); Monocytes # 0.9 K/mm3 (0.1-1.0); Monocytes % 7.2 % (1.7-9.3); Neutrophils % 64.3 % (37.0-80.0); Nucleated Red Blood Cells # 0 10^3/uL; Nucleated Red Blood Cells % 0 %; Platelet Count 261 K/mm3 (142-424); Red Blood Count 4.16 M/mm3 (4.20-5.40); Red Cell Distribution Width 15.3 % (11.5-17.5); Red Cell Distribution Width-SD 45.9 fL; White Blood Count 12.4 K/mm3 (4.8-10.8)
[2024-09-14 18:13] LABS: Hemoglobin A1C 5.2 % (4.0-6.0)
[2024-09-14 20:09] LABS: Albumin Level 4.1 g/dl (3.5-5.0); Chloride 97 mmol/L (98-107)
[2024-09-14 20:10] LABS: Potassium 3.7 mmoL/L (3.5-5.1); Sodium 137 mmol/L (136-145)
[2024-09-14 20:12] LABS: Alanine Aminotransferase 16 U/L (12-78); Alkaline Phosphatase 73 U/L (38-126); Aspartate Amino Transferase 21 U/L (14-36); Bilirubin,Total 0.6 mg/dl (0.2-1.3); Blood Urea Nitrogen 13 mg/dl (7-17); Estimated Glomerular Filt Rate 83 ml/min (>60); GFR (African American) 100 ML/MIN (>60)
[2024-09-14 20:13] LABS: Albumin/Globulin Ratio 1.6 (1.1-1.8); Anion Gap 8.7 mEq/L (5-15); Calcium 9.3 mg/dl (8.4-10.2); Carbon Dioxide 35 mmol/L (22.0-30.0); Globulin 2.5 g/dL (1.3-3.2); Glucose 108 mg/dl (74-100); Iron 59 ug/dL (37-170); Total Protein,Serum 6.6 g/dl (6.3-8.2)
[2024-09-14 20:24] LABS: Total Iron Binding Capacity 429 ug/dL (265-497)
[2024-09-14 20:45] LABS: Ferritin 7.29 ng/ml (11.1-264)
[2024-09-14 21:17] LABS: Folate 3.38 ng/mL
--- OUTSIDE RECORDS SUMMARY | 2024-09-15 14:27 | XMS_ITS | Encounter Summary ---
Author Organization Healthcare Address [address] [place] [address] Care Team Providers Care Nurse Auditor Name Role Phone Rosa M Hollingsworth Primary Care Provider [phone] Duc Sinha MD Unavailable [phone] Reason for Referral * Consultation (Routine) - Authorized Specialty Diagnoses / Procedures Referred By Contact Referred To Contact [facility]ascular [facility] Diagnoses Carotid artery stenosis, unilateral, right Colleen August APRN [address] [place] [address] Phone: tel: fax: [facility] [address] [facility] [address] [address] [place] [address] Phone: tel: fax: Referral ID Status Reason Start Date Expiration Date Visits Requested Visits Authorized [id number] Authorized Specialty Services Required 09/03/2024 03/05/2026 1 1 Encounter Details Date Type Department Care Team (Late st Contact Info) Description 09/03/2024 Orders Only [facility] [place] [address] [place] [address] Coral Lira, RN [facility] ADMI Carotid artery stenosis, unilateral, right (Primary Dx) Social History Tobacco Use Types Packs/Day Years Used Date Smoking Tobacco: Former Smokeless Tobacco: Never Alcohol Use Standard Drinks/Week Comments No 0 (1 standard drink = 0.6 oz pur e alcohol) Comments Unknown Sex and Gender Information Value Date Recorded Sex Assigned at Not on file Legal Sex Female 8:07 PM EDT Gender Identity Not on file Sexual Orientation Not on file documented as of this encounter Miscellaneous Notes * Progress Notes - Coral Lira RN - 09/03/2024 4:13 PM EDT Referral for rt carotid artery stenosis. Previously saw Dr. Moon for this, 2017 - 2019. Was supposed to be scheduled for surgery, but multiple medical issues precluded this. Now being re-referred. Images requested from [facility] neck / head done 05/15/24. documented in this encounter Plan of Treatment Upcoming Encounters Date Type Department Care Team (Late st Contact Info) Description 10/20/2024 11:40 AM EDT Office Visit [facility] [address] [facility] [address], [address] [place] [address] Maren Martini MD [address] [facility] [address] [place] [address] Scheduled Referrals Name Type Priority Associated Diagnoses Order Schedule Ambulatory referral to Vascular Surgery Outpatient Referral Routine Carotid artery stenosis, unilateral, right Expected: 09/03/2024, Expires: 03/06/2026 documented as of this encounter Visit Diagnoses Diagnosis Carotid artery stenosis, unilateral, right- Primary documented in this encounter Additional Health Concerns Assessment Noted Time A Body Mass Index follow-up plan has been documented for the patient 10/01/2023 3:38 PM EDT documented as of this encounter Care Teams Nurse Auditor Relationship Specialty Start Date End Date Rosa M Hollingsworth PA [address] [place] [address] PCP - General 08/19/20 Duc Sinha MD [facility] [place] [address] Referring Physician Cardiology 10/11/20 documented as of this encounter
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
== END 2024-09-14 23:59 ==
LOC: LAB.DROPOF 09-15 14:19
PROVIDERS: PCP Family Medicine; Visit Provider Family Medicine
DX: E03.9 Hypothyroidism, unspecified (principal); D64.9 Anemia, unspecified; R73.09 Other abnormal glucose; N39.0 Urinary tract infection, site not specified; R39.9 Unspecified symptoms and signs involving the genitourinary system
CPT/HCPCS: 80053; 82728; 82746; 83036; 83540; 83550; 85025; 87086

== ENCOUNTER 2024-10-14 13:57 | Emergency (ER) | payer MEDICARE, OTHER, SELFPAY ==
[2024-10-14 14:02] VITALS: BP 156/69; PULSE 78; RESP 19; TEMP 36.6; O2SAT 98; BMI 32.5
--- NOTE | 2024-10-14 14:05 | ECG_ITS ---
APPROVED REPORT Exam: Resting ECG HR:68 bpm ECG Measurements Heart Rate 68 AXES AL 130 P -12 QRSd 90 QRS 75 QT 405 T 56 QTc 423 Conclusion SINUS RHYTHM POSSIBLE RIGHT VENTRICULAR CONDUCTION DELAY [RSR (QR) IN V1/V2] MINIMAL ST DEPRESSION [0.025+ mV ST DEPRESSION] BORDERLINE ECG UNCONFIRMED REPORT Normal sinus rhythm with ventricular rate of [address] elevation or depression. Electronically signed by : MIRELLA CASTANEDA, 10/14/2024 22:48:53
--- OUTSIDE RECORDS SUMMARY | 2024-10-14 14:12 | XMS_ITS | Encounter Summary ---
Author Organization [facility] Address [address] [place] [address] Care Team Providers Care Forming Roll Operator Name Role Phone Rosa M Hollingsworth Primary Care Provider [phone] Duc Sinha MD Unavailable [phone] Encounter Details Date Type Department Care Team (Late st Contact Info) Description 10/13/2024 Telephone [facility] [place] [facility] [address] [place] [address] [place] [address] Social History Tobacco Use Types Packs/Day Years [...] as of this encounter Miscellaneous Notes * Telephone Encounter - Bessy Pearson - 10/13/2024 12:34 PM EDT Patient Name: Александр Laureano :1955 Date:10/13/2024 Affiliate site:[place] Referring Physician:Sheree August Education/ Information provided: This Nurse Liaison spoke with Александр Laureano's grandchild, Martha, prior to an appointment on 10/20/2024. Explained nurse liaison services offered through [facility]. Discussed appointment necessity, and subspecialty clinic the pt will be seeing. Patient verbalizes understanding.Patient denied any barriers to arriving to clinic visit. All questions answered. Provided patient with liaison contact information and encouraged patient to call with any questions, concerns or assistance needs. Will follow up with patient after appointment. Bessy eParson [facility] Nurse Liaison [phone] documented in this encounter Plan of Treatment Upcoming Encounters Date Type Department Care Team (Late st Contact Info) Description 10/20/2024 11:40 AM EDT Office Visit [facility] [address] [facility] 5th Floor [address] [place] [address] Maren Martini MD [address] [facility] [address] [place] [address] documented as of this encounter Visit Diagnoses Not on filedocumented in this encounter Additional Health Concerns Assessment Noted Time A Body Mass Index follow-up plan has been documented for the patient 10/01/2023 3:38 PM EDT documented as of this encounter Care Teams Forming Roll Operator Relationship Specialty Start Date End Date Rosa M Hollingsworth PA [address] [place] [address] PCP - General 08/19/20 Duc Sinha MD [address] [address] Referring Physician Cardiology 10/11/20 documented as of this encounter
--- OUTSIDE RECORDS SUMMARY | 2024-10-14 14:12 | XMS_ITS | Clinical Summary ---
Author Organization [facility] Address [address] [place] [address] Care Team Providers Care Filenet Architect Name Role Phone Rosa M Hollingsworth Primary Care Provider [phone] Duc Sinha MD Unavailable [phone] Allergies Active Allergy Reactions Criticality Noted Date [...] Encounters Date Type Department Care Team Description 10/13/2024 Telephone [facility] [place] [address] [place] [address] Bessy Pearson 09/03/2024 Orders Only [facility] [place] [facility] [address] [place] [address] Coral Lira, RN Carotid artery stenosis, unilateral, [...] Description 10/20/2024 11:40 AM EDT Office Visit [place] [facility] [address] [facility] 5th Floor [address] [place] [address] Maren Martini MD [address] [facility] [address] [place] [address] Health Maintenance Due Date Last Done Comments [facility]-Bone Density Scan 1955 [facility]-Depression Screening 1955 [facility]-Medicare Annual Wellness (AWV) 1955 [facility]-/Child/Adol SDOH Screenings 1955 [facility]- SDOH Screenings 1973 [facility]-Adult SDOH Screenings 1973 [facility]-Pneumococcal Vaccine: 50 + Years (1 of 2 - PCV) 1974 CT Colonography 2000 Colonoscopy 2000 FIT-DNA 2000 FIT 2000 FOBT 2000 Sigmoidoscopy 2000 [facility]-Colorectal Cancer Screening 2000 [facility]-Breast Cancer Screening 2005 [facility]-Zoster Vaccines (1 of 2) 2005 [facility]-RSV Vaccine: 60+ Years o r (1 - Risk 60-74 years 1-dose series) 2015 [id number] Vaccine (3 - Pfizer risk series) 02/03/2021 01/06/2021, 12/16/2020 [facility]-Influenza Vaccine (#1) 2024 [facility]-DTaP,Tdap,and Td Vaccine s (2 - [...] Antibody Negative Negative 05/01/2023 11:23 PM EST [facility] Blood Venous blood specimen / Unknown Venipuncture / Unknown 05/01/2023 10:22 PM EST 05/01/2023 10:42 PM EST us Dylan Magana MD LAB BLOOD ORDERABLES Final Re sult [facility] [address] [place] [address] from Last 3 Months or Most Recently Relevant to Health Maintenance Insurance [employer] BETTER [employer] MEDICAID AET[employer] MEDICARE Advance Directives * Full Code (Latest Code Status on File) Date Activated Date Inactivated Comments 09/28/2023 4:16 AM 10/01/2023 8:26 PM Question Answer Comments Patient has decision-making capacity? Yes Care Teams Filenet Architect Relationship Specialty Start Date End Date Rosa M Hollingsworth PA [address] [place] [address] PCP - General 08/19/20 Duc Sinha MD [address] [place] [address] Referring Physician Cardiology 10/11/20
--- OUTSIDE RECORDS SUMMARY | 2024-10-14 14:12 | XMS_ITS | Encounter Summary ---
Author Organization [facility] Address [address] [place] [address] Care Team Providers Care Lathe Puller Name Role Phone Rosa M Hollingsworth Primary Care Provider [phone] Duc Sinha MD Unavailable [phone] Reason for Referral * Consultation (Routine) - Authorized Specialty Diagnoses / Procedures Referred By Contact Referred To Contact [facility] Diagnoses Carotid artery stenosis, unilateral, right Colleen August APRN [address] [facility] [address] [place] [address] Phone: tel: fax: [facility] [address] [facility] 5th Floor [address] [place] [address] Phone: tel: fax: Referral ID Status Reason Start Date Expiration Date Visits Requested Visits Authorized [id number] Authorized Specialty Services Required 09/03/2024 03/05/2026 1 1 Encounter Details Date Type Department Care Team (Late st Contact Info) Description 09/03/2024 Orders Only [facility] [place] [facility] [address] [place] [address] Coral Lira, RN HOSP. SPECIAL DIAGNOSTIC FACILITIES [...] this. Now being re-referred. Images requested from [facility] of CTA neck / head done 05/15/24. documented in this encounter Plan of Treatment Upcoming Encounters Date Type Department Care Team (Late st Contact Info) Description 10/20/2024 11:40 AM EDT Office Visit [facility] [address] [facility] 5th Floor [address] [place] [address] Maren Martini MD [address] [facility] [address] [place] [address] Scheduled Referrals Name Type Priority [...] documented as of this encounter Care Teams Lathe Puller Relationship Specialty Start Date End Date Rosa M Hollingsworth PA [address] [place] [address] PCP - General 08/19/20 Duc Sinha MD [address] [place] [address] Referring Physician Cardiology 10/11/20 documented as of this encounter
[2024-10-14 14:15] VITALS: BP 143/66; PULSE 74; O2SAT 98
--- NOTE | 2024-10-14 14:27 | ED_ITS ---
Discharge Plan Disposition Patient Disposition: Home, Self-Care Condition: Good Prescriptions Prescriptions: No Action aspirin [Aspir-81] 81 mg tablet,delayed release (DR/EC) 81 mg PO DAILY lidocaine [Lidoderm] 5 % adhesive patch,medicated 1 patch topical DAILY Qty: 30 0RF Rx Instructions: leave on most painful area for up to 12 hrs Debrox 6.5 % drops 5 drp otic (ear) BID 4 Days Qty: 15 0RF nystatin 100,000 unit/gram powder 1 applic topical BID Qty: 30 3RF meclizine 25 mg tablet 25 mg PO TID Qty: 90 2RF calcium carbonate-vitamin D3 600 mg-10 mcg (400 unit) tablet 1 tab PO DAILY Qty: 90 3RF furosemide 20 mg tablet See Rx Instructions .ROUTE .COMPLEX Qty: 20 3RF Dose Instruction: TAKE ONE TABLET BY MOUTH ONCE A DAY NEEDED FOR EDEMA Rx Instructions: TAKE ONE TABLET BY MOUTH ONCE A DAY NEEDED FOR EDEMA fluticasone propionate 50 mcg/actuation spray,suspension See Rx Instructions .ROUTE .COMPLEX Qty: 16 3RF Dose Instruction: USE ONE SPRAY INTO EACH NOSTRIL ONCE DAILY Rx Instructions: USE ONE SPRAY INTO EACH NOSTRIL ONCE DAILY sennosides [senna] 8.6 mg tablet See Rx Instructions .ROUTE .COMPLEX Qty: 60 2RF Dose Instruction: TAKE ONE TABLET BY MOUTH 2 TIMES A DAY NEEDED FOR CONSTIPATION Rx Instructions: TAKE ONE TABLET BY MOUTH 2 TIMES A DAY NEEDED FOR CONSTIPATION guaifenesin 200 mg tablet See Rx Instructions .ROUTE .COMPLEX Qty: 90 1RF Dose Instruction: TAKE ONE TABLET BY MOUTH FOUR TIMES A DAY NEEDED FOR CONGESTION Rx Instructions: TAKE ONE TABLET BY MOUTH FOUR TIMES A DAY NEEDED FOR CONGESTION cetirizine 10 mg tablet See Rx Instructions .ROUTE .COMPLEX Qty: 90 0RF Dose Instruction: TAKE ONE TABLET BY MOUTH ONCE A DAY FOR ALLERGIES Rx Instructions: TAKE ONE TABLET BY MOUTH ONCE A DAY FOR ALLERGIES duloxetine 30 mg capsule,delayed release(DR/EC) See Rx Instructions .ROUTE .COMPLEX Qty: 30 2RF Dose Instruction: TAKE 1 CAPSULE BY MOUTH ONCE A DAY Rx Instructions: TAKE 1 CAPSULE BY MOUTH ONCE A DAY montelukast 10 mg tablet See Rx Instructions .ROUTE .COMPLEX Qty: 30 2RF Dose Instruction: TAKE ONE TABLET BY MOUTH ONCE A DAY FOR ALLERGIES/BREATHING Rx Instructions: TAKE ONE TABLET BY MOUTH ONCE A DAY FOR ALLERGIES/BREATHING potassium chloride 20 mEq tablet,ER particles/crystals See Rx Instructions .ROUTE .COMPLEX Qty: 30 3RF Dose Instruction: TAKE ONE TABLET BY MOUTH ONCE A DAY Rx Instructions: TAKE ONE TABLET BY MOUTH ONCE A DAY albuterol sulfate 90 mcg/actuation HFA aerosol inhaler See Rx Instructions .ROUTE .COMPLEX Qty: 8.5 2RF Dose Instruction: INHALE 2 PUFFS BY MOUTH EVERY 4 HOURS NEEDED FOR SHORTNESS OF BREATH Rx Instructions: INHALE 2 PUFFS BY MOUTH EVERY 4 HOURS NEEDED FOR SHORTNESS OF BREATH nitrofurantoin macrocrystal 100 mg capsule 100 mg PO BID 5 Days Qty: 10 0RF Rx Instructions: must administer with a meal/food nystatin 100,000 unit/gram cream 1 applic topical TID Qty: 30 3RF tramadol 50 mg tablet 50 mg PO QHS Qty: 30 0RF levalbuterol HCl 0.31 mg/3 mL solution for nebulization See Rx Instructions inhalation Q8H PRN (Reason: shortness of breath or wheezing) Qty: 90 2RF Rx Instructions: inhaled every 8 hours PRN; ferrous sulfate 325 mg (65 mg iron) tablet 325 mg PO DAILY Qty: 30 2RF fluconazole 150 mg tablet See Rx Instructions .ROUTE .COMPLEX 7 Days Qty: 7 0RF Dose Instruction: TAKE 1 TABLET BY MOUTH today. Rx Instructions: TAKE 1 TABLET BY MOUTH today. ipratropium-albuterol 0.5 mg-3 mg(2.5 mg base)/3 mL solution for nebulization 3 ml inhalation Q6H 90 Days Qty: 180 6RF famotidine 20 mg tablet 20 mg PO DAILY pantoprazole 40 mg tablet,delayed release (DR/EC) 40 mg PO DAILY losartan-hydrochlorothiazide 50-12.5 mg tablet 1 tab PO DAILY atenolol 25 mg tablet 25 mg PO DAILY levothyroxine 25 mcg tablet 25 mcg PO DAILY rosuvastatin 40 mg tablet 40 mg PO DAILY Referrals Follow up/Referrals: Provider,Referral, MD [Referring, Medical] - See instructions Activity Restrictions/Add. Instructions Additional Instructions/Restrictions: As we discussed please utilize your home neb machine up to every 6 hours. If you get no relief that you may return to the emergency department. If you have new or worsening signs or symptoms follow-up with your PCP or return to the ER as needed. Clinical Impressions Clinical Impression: Acute exacerbation of chronic obstructive pulmonary disease Print Language Print Language: Bulgarian Discharge ED Provider: Javi Kulkarni HPI <NAVEEN Talley - Last Filed: 10/14/24 16:58> General Chief Complaint: Shortness of Breath/Dyspnea Stated Complaint: SOA Time Seen by Provider: 10/14/24 14:04 Mode of Arrival: Wheelchair Source of Information: Patient Description of Symptoms (Recalled from ER Triage Doc. by RN): patient states she has had shortness of breath for 2 days, she wears 2liters nc all the time. history of COPD History of Present Illness HPI narrative: Patient presents for evaluation of dyspnea. Patient has longstanding COPD that is O2 dependent at 2 L. She states over the last 2 days she has had increasing shortness of breath including shortness of breath at rest. Patient does have a home nebulizer but has not been utilizing it. She denies any fever chills hemoptysis hematochezia melena nausea vomiting diarrhea. Patient states however that the last time that she got the short of breath she required a blood transfusion. She has not had laboratory work done recently however. Related Data Home Medications ?Medication ?Instructions ?Recorded ?Confirmed aspirin 81 mg tablet,delayed 81 mg PO DAILY 05/02/17 0 09/14/24 release (Aspir-) atenolol 25 mg tablet 25 mg PO DAILY 05/15/2412/31 famotidine 20 mg tablet 20 mg PO DAILY 05/15/2412/31 levothyroxine 25 mcg tablet 25 mcg PO DAILY 05/15/24 0 09/14/24 losartan 50 mg-hydrochlorothiazide 1 tab PO DAILY 50/1 2.5MG 05/15/24 09/14/24 12.5 mg tablet pantoprazole 40 mg tablet,delayed 40 mg PO DAILY 05/1509/14/24 release rosuvastatin 40 mg tablet 40 mg PO DAILY 05/15/2412/31 Previous Rx's ?Medication ?Instructions ?Recorded lidocaine 5 % topical patch 1 patch topical DAILY #30 ea 12/03/23 (Lidoderm) carbamide peroxide 6.5 % ear drops 5 drp otic (ear) BI D 4 days #15 mL 05/13/24 (Debrox) meclizine 25 mg tablet 25 mg PO TID #90 tabs calcium 600 mg (as 1 tab PO DAILY #90 tabs 06/06 carbonate)-vitamin D3 10 mcg (400 unit) tablet furosemide 20 mg tablet See Rx Instructions .Route 0 07/09/24 .COMPLEX #20 tabs fluticasone propionate 50 See Rx Instructions .Route 0 07/10/24 mcg/actuation nasal .COMPLEX #16 grams spray,suspension sennosides 8.6 mg tablet (senna) See Rx Instructions . Route 07/20/24 .COMPLEX #60 ea guaifenesin 200 mg tablet See Rx Instructions .Route 0 07/22/24 .COMPLEX #90 tabs cetirizine 10 mg tablet See Rx Instructions .Route 0 08/05/24 .COMPLEX #90 tabs duloxetine 30 mg capsule,delayed See Rx Instructions . Route 08/24/24 release .COMPLEX #30 caps montelukast 10 mg tablet See Rx Instructions .Route 0 08/24/24 .COMPLEX #30 tabs albuterol sulfate 90 mcg/actuation See Rx Instructions .Route 09/03/24 aerosol inhaler .COMPLEX #8.5 grams potassium chloride 20 mEq See Rx Instructions .Route 0 09/03/24 tablet,extended release(part/cryst) .COMPLEX #30 tabs nystatin 100,000 unit/gram topical 1 applic topical BI D #30 grams 09/07/24 powder levalbuterol HCl 0.31 mg/3 mL See Rx Instructions inha lation Q8H 09/14/24 solution for nebulization PRN shortness of breath or wheezing #90 mL nitrofurantoin macrocrystal 100 mg 100 mg PO BID 5 day s #10 caps 09/14/24 capsule nystatin 100,000 unit/gram topical 1 applic topical TI D #30 grams 09/14/24 cream tramadol 50 mg tablet 50 mg PO QHS #30 tabs ferrous sulfate 325 mg (65 mg 325 mg PO DAILY #30 tabs 09/16/24 iron) tablet fluconazole 150 mg tablet See Rx Instructions .Route 0 09/24/24 .COMPLEX 7 days #7 tabs ipratropium 0.5 mg-albuterol 3 mg 3 ml inhalation Q6H COPD 90 days 10/07/24 (2.5 mg base)/3 mL nebulization #180 mL soln Allergies Allergy/AdvReac Type Severity Reaction Status Date / Time amoxicillin (From Augmentin) Allergy Mild Abdominal Verified 09/14/24 14:28 complaints clavulanic acid (From Allergy Mild Abdominal Verified 09/14/24 14:28 Augmentin) complaints hydrocortisone Allergy Mild Verified 09/14/24 14:28 prednisolone Allergy Mild Verified 09/14/24 14:28 prednisone Allergy Mild Verified 09/14/24 14:28 codeine (CODEINE) Allergy Unknown Verified 09/14/24 14:28 promethazine (From PHENERGAN) Allergy Unknown Verified 09/14/24 14:28 phenobarbital AdvReac Unknown Verified 09/14/24 14:28 IV dye AdvReac Unknown Uncoded 09/03/24 14:04 [facility] <NAVEEN Talley - Last Filed: 10/14/24 16:58> [facility] Disclaimer: The information contained in this section may have been updated after the patient was seen, as this information can be updated by other users. Medical History Ear pain Cerumen impaction Pre-operative cardiovascular examination Dysphagia Migraine GERD (gastroesophageal reflux disease) Depression Metatarsal bone fracture Hypothyroidism Vitamin D deficiency Heart murmur Tobacco abuse Carotid artery disease COPD (chronic obstructive pulmonary disease) HLD (hyperlipidemia) HHD (hypertensive heart disease) CAD (coronary artery disease) Surgical History H/O tubal ligation History of appendectomy Family History Other Kidney disease Social History Smoking Status: Former smoker alcohol intake: never substance use type: denies use current occupational status: disabled Travel in the last 8 weeks?: None household members: children housing: house Have you lived/traveled outside [place] in past 30 days?: No Contact w/someone who lives/traveled outside [place] past 30 days?: No Exposure to someone with infectious disease in past 14 days?: No Do you have a fever (greater than 100.4 F or 38 C)?: No Have you tested positive for COVID-19?: No Exposed to someone with COVID-19 in past 14 days?: No Do you have a sore throat?: No Do you have a cough?: No Do you have any weakness?: No Do you have any diarrhea?: No Are you experiencing any unusual bleeding?: No Do you have any muscle aches/pain?: No Do you have any abdominal pain?: No Are you experiencing loss of taste or smell?: No Other Medical History Have you received the Flu Vaccine for this season: No Have you received the Pneumonia Vaccine: Yes <NAVEEN Talley - Last Filed: 10/14/24 16:58> ROS Obtained: Yes Systems reviewed as appropriate & no additional complaints except as documented Physical Exam <NAVEEN Talley - Last Filed: 10/14/24 16:58> General General appearance: alert and in no apparent distress Respiratory Respiratory exam: Present prolonged expiratory phase and other (Diminished air entry); Absent respiratory distress, wheezes or accessory muscle use Cardiovascular Cardiovascular exam: Present regular rate Neurological Exam Neurological exam: Present alert and oriented X3 HEART Score <NAVEEN Talley - Last Filed: 10/14/24 16:58> HEART Score HEART Score assessment performed?: Yes History (anamnesis): Slightly suspicious ECG: Non-specific disturbance Age: >65 years Risk factors: Atherosclerosis history Troponin: </= normal limit HEART Score: 5 <Javi Kulkarni MD - Last Filed: 10/14/24 21:00> HEART Score HEART Score: 5 Critical Care <NAVEEN Talley - Last Filed: 10/14/24 16:58> Critical Care Time Critical Care Time: No Medical Decision Making <NAVEEN Talley - Last Filed: 10/14/24 16:58> Medical Records Medical records reviewed: Yes I reviewed the patient's medical records. Ernie Inquiry Pt receiving controlled substance: No Vital Signs Vital Signs: 10/14/24 14:02 10/14/24 14:15 10/14/24 14:30 Temperature 98 F Temperature Source Oral Pulse Rate 74 73 Pulse Rate [Right Radial] 78 Respiratory Rate 19 Blood Pressure 143/66 H 120/74 Blood Pressure [Right Arm] 156/69 H Blood Pressure Mean 98 97 Blood Pressure Mean [Right Arm] 98 Blood Pressure Source [Right Arm] Automatic Cuff Blood Pressure Position [Right Arm] Supine 02 Sat by Pulse Oximetry 98 98 98 Oxygen Delivery Method Room Air 10/14/24 14:57 10/14/24 15:00 10/14/24 16:54 Temperature 98 F Temperature Source Oral Pulse Rate 72 72 68 Pulse Rate [Right Radial] Respiratory Rate 18 Blood Pressure 130/82 141/70 H 154/73 H Blood Pressure [Right Arm] Blood Pressure Mean 98 103 Blood Pressure Mean [Right Arm] Blood Pressure Source [Right Arm] Blood Pressure Position [Right Arm] 02 Sat by Pulse Oximetry 97 97 Oxygen Delivery Method Room Air Lab Data Lab results reviewed: Yes I reviewed the patient's lab results. Labs: Lab Results 10/14/24 14:23: D-Dimer 0.52 H, Sodium 139, Potassium 4.1, Chloride 99, Carbon Dioxide 31 H, Anion Gap 13.1, BUN 12, Creatinine 0.70, Estimated Creat Clear 77, Estimated GFR 83, Est GFR ( Amer) 100, Glucose 103 H, Calcium 9.0, Magnesium 1.9, Total Bilirubin 0.5, AST 33, ALT 18, Alkaline Phosphatase 49, Troponin I < 0.01, NT-Pro-B Natriuret Pep 221 H, Total Protein 6.5, Albumin 3.9, Globulin 2.6, Albumin/Globulin Ratio 1.5 10/14/24 14:36: VBG pH 7.43 H, VBG pCO2 41.9, VBG pO2 166.9 H, VBG HCO3 27.0, V BG Total CO2 28.3 H, VBG O2 Saturation 99.1 H, VBG Base Excess 2.6 H, VBG Lactic Acid 2.0 10/14/24 14:50: Chlamy pneumoniae PCR Not detected, Adenovirus (PCR) Not detected, B. pertussis DNA (PCR) Not detected, Coronavirus OC43 (PCR) Not detected, Coronavirus HKU1 (PCR) Not detected, Coronavirus 229E (PCR) Not detected, SARS-CoV-2 (PCR) Not detected, Coronavirus NL63 (PCR) Not detected, Human Metapneumovir PCR Not detected, Influenza A (H1) PCR Not detected, Influ A (H1N1/09) PCR Not detected, Influenza A (H3) PCR Not detected, Influenza Type A (PCR) Not detected, Influenza Type B (PCR) Not detected, M. pneumoniae (PCR) Not detected, Parainfluenza 1 (PCR) Not detected, Parainfluenza 2 (PCR) Not detected, Parainfluenza 3 (PCR) Not detected, Parainfluenza 4 (PCR) Not detected, RSV (PCR) Not detected, Entero/Rhino (PCR) Not detected 10/14/24 14:54: WBC 11.0 H, RBC 3.80 L, Hgb 10.3 L, Hct 33.1 L, MCV 87.1, MCH 27.1, MCHC 31.1 L, RDW 16.0, Plt Count 207, MPV 9.8, Neut % (Auto) 69.2, Lymph % (Auto) 22.8, [place] % (Auto) 6.2, Eos % (Auto) 0.9, Baso % (Auto) 0.4, Neut # (Auto) 7.6, Lymph # (Auto) 2.5, [place] # (Auto) 0.7, Eos # (Auto) 0.1, Baso # (Auto) 0.0 10/14/24 14:55: Blood Type B Positive, Antibody Screen Negative 10/14/24 14:54 10/14/24 14:23 Response Orders (Tests/Meds): ED MEDICATIONS Discontinued Medications Generic Name Dose Route Start Last Admin Trade Name Freq PRN Reason Stop Dose Admin Albuterol/Ipratropium 9 ml 10/14/24 14:33 Ipratropium/Albuterol 3 Ml Neb IH 10/14/24 14:34 ONCE ONE Dexamethasone Sodium Phosphate 10 mg 10/14/24 14:33 Dexamethasone 4mg/Ml 5ml Mdv IV 10/14/24 14:34 ONCE ONE ORDERS Category Date Time Status Type and Screen Stat BBK 10/14/24 14:55 Completed Chest XR -- portable [XR chest portable] Stat Exams 10/14/24 14:33 Completed POCUS Point of Care (ER Only) Stat Exams 10/14/24 14:07 Completed BNP [NT Pro Brain Natriuretic Pep.] Stat Lab 10/14/24 14:23 Completed CBC w/Auto Diff [Complete Blood Count Auto Diff] Stat Lab 10/14/24 14:54 Completed CMP [Comprehensive Metabolic Panel] Stat Lab 10/14/24 14:23 Completed D-Dimer Stat Lab 10/14/24 14:23 Completed Full Resp Panel w/COVID ([facility]) Routine Lab 10/14/24 14:50 Completed Magnesium Stat Lab 10/14/24 14:23 Completed Trop I [Troponin I] Stat Lab 10/14/24 14:23 Completed VBG [Venous Blood Gas] Stat RT 10/14/24 14:36 Completed MDM Narrative Medical Decision Narrative: In summary patient is a 69-year-old female who presents to the emergency department for evaluation of dyspnea. Patient is hemodynamically stable with a blood pressure 156/69 pulse 78 sinus rhythm on the bedside monitor breathing 19 times minute satting at 98% on 2 L by nasal cannula which is her baseline upon arrival, and afebrile. Physical exam is remarkable for diminished air entry bilaterally in all 4 desai. I do not hear any adventitious sounds she has no increased work of breathing or accessory muscle use however she has a delayed expiratory phase with pursed lips. Cardiovascular is S1-S2 regular rate and rhythm without murmurs gallops rubs or thrills.. Differential diagnosis includes COPD with acute exacerbation versus pneumonia versus PE and less likely but possible iron deficiency anemia etc. Initial workup will be conducted with hematologic labs twelve-lead EKG plain film chest x-ray and VBG. Initial interventions include DuoNeb Decadron. Initial workup reviewed by me and her hematologic labs are nonactionable my informal interpretation of the plain films chest x-ray shows no acute processes. Upon repeat evaluation patient reported significant improvement after DuoNeb.. Given this patient is appropriate for discharge with recommendations to start utilizing her nebulizer up to every 6 hours as needed and should she have any persistent new or worsening signs or symptoms to follow-up with PCP or return to the ER as needed. Patient verbalizes understanding and agreement. <Jason Estevez MD - Last Filed: 10/14/24 15:34> Vital Signs Vital Signs: 10/14/24 14:02 10/14/24 14:15 10/14/24 14:30 Temperature 98 F Temperature Source Oral Pulse Rate 74 73 Pulse Rate [Right Radial] 78 Respiratory Rate 19 Blood Pressure 143/66 H 120/74 Blood Pressure [Right Arm] 156/69 H Blood Pressure Mean 98 97 Blood Pressure Mean [Right Arm] 98 Blood Pressure Source [Right Arm] Automatic Cuff Blood Pressure Position [Right Arm] Supine 02 Sat by Pulse Oximetry 98 98 98 Oxygen Delivery Method Room Air 10/14/24 14:57 10/14/24 15:00 07/09/25 16:54 Temperature 98 F Temperature Source Oral Pulse Rate 72 72 68 Pulse Rate [Right Radial] Respiratory Rate 18 Blood Pressure 130/82 141/70 H 154/73 H Blood Pressure [Right Arm] Blood Pressure Mean 98 103 Blood Pressure Mean [Right Arm] Blood Pressure Source [Right Arm] Blood Pressure Position [Right Arm] 02 Sat by Pulse Oximetry 97 97 Oxygen Delivery Method Room Air Lab Data Labs: Lab Results 10/14/24 14:23: D-Dimer 0.52 H, Sodium 139, Potassium 4.1, Chloride 99, Carbon Dioxide 31 H, Anion Gap 13.1, BUN 12, Creatinine 0.70, Estimated Creat Clear 77, Estimated GFR 83, Est GFR ( Amer) 100, Glucose 103 H, Calcium 9.0, Magnesium 1.9, Total Bilirubin 0.5, AST 33, ALT 18, Alkaline Phosphatase 49, Troponin I < 0.01, NT-Pro-B Natriuret Pep 221 H, Total Protein 6.5, Albumin 3.9, Globulin 2.6, Albumin/Globulin Ratio 1.5 10/14/24 14:36: VBG pH 7.43 H, VBG pCO2 41.9, VBG pO2 166.9 H, VBG HCO3 27.0, V BG Total CO2 28.3 H, VBG O2 Saturation 99.1 H, VBG Base Excess 2.6 H, VBG Lactic Acid 2.0 10/14/24 14:50: Chlamy pneumoniae PCR Not detected, Adenovirus (PCR) Not detected, B. pertussis DNA (PCR) Not detected, Coronavirus OC43 (PCR) Not detected, Coronavirus HKU1 (PCR) Not detected, Coronavirus 229E (PCR) Not detected, SARS-CoV-2 (PCR) Not detected, Coronavirus NL63 (PCR) Not detected, Human Metapneumovir PCR Not detected, Influenza A (H1) PCR Not detected, Influ A (H1N1/09) PCR Not detected, Influenza A (H3) PCR Not detected, Influenza Type A (PCR) Not detected, Influenza Type B (PCR) Not detected, M. pneumoniae (PCR) Not detected, Parainfluenza 1 (PCR) Not detected, Parainfluenza 2 (PCR) Not detected, Parainfluenza 3 (PCR) Not detected, Parainfluenza 4 (PCR) Not detected, RSV (PCR) Not detected, Entero/Rhino (PCR) Not detected 10/14/24 14:54: WBC 11.0 H, RBC 3.80 L, Hgb 10.3 L, Hct 33.1 L, MCV 87.1, MCH 27.1, MCHC 31.1 L, RDW 16.0, Plt Count 207, MPV 9.8, Neut % (Auto) 69.2, Lymph % (Auto) 22.8, [place] % (Auto) 6.2, Eos % (Auto) 0.9, Baso % (Auto) 0.4, Neut # (Auto) 7.6, Lymph # (Auto) 2.5, [place] # (Auto) 0.7, Eos # (Auto) 0.1, Baso # (Auto) 0.0 10/14/24 14:55: Blood Type B Positive, Antibody Screen Negative Response Orders (Tests/Meds): ED MEDICATIONS Discontinued Medications Generic Name Dose Route Start Last Admin Trade Name Freq PRN Reason Stop Dose Admin Albuterol/Ipratropium 9 ml 10/14/24 14:33 Ipratropium/Albuterol 3 Ml Neb IH 10/14/24 14:34 ONCE ONE Dexamethasone Sodium Phosphate 10 mg 10/14/24 14:33 Dexamethasone 4mg/Ml 5ml Mdv IV 10/14/24 14:34 ONCE ONE ORDERS Category Date Time Status Type and Screen Stat BBK 10/14/24 14:55 Completed Chest XR -- portable [XR chest portable] Stat Exams 10/14/24 14:33 Completed POCUS Point of Care (ER Only) Stat Exams 10/14/24 14:07 Completed BNP [NT Pro Brain Natriuretic Pep.] Stat Lab 10/14/24 14:23 Completed CBC w/Auto Diff [Complete Blood Count Auto Diff] Stat Lab 10/14/24 14:54 Completed CMP [Comprehensive Metabolic Panel] Stat Lab 10/14/24 14:23 Completed D-Dimer Stat Lab 10/14/24 14:23 Completed Full Resp Panel w/COVID ([facility]) Routine Lab 10/14/24 14:50 Completed Magnesium Stat Lab 10/14/24 14:23 Completed Trop I [Troponin I] Stat Lab 10/14/24 14:23 Completed VBG [Venous Blood Gas] Stat RT 10/14/24 14:36 Completed ECG Data Tracing #1: ECG Narrative: Independently inter by me rate is 68, rhythm is regular, axis normal, no ST elevation in anatomical contiguous leads, QTc 423. <Javi Kulkarni MD - Last Filed: 10/14/24 21:00> Vital Signs Vital Signs: 10/14/24 14:02 10/14/24 14:15 10/14/24 14:30 Temperature 98 F Temperature Source Oral Pulse Rate 74 73 Pulse Rate [Right Radial] 78 Respiratory Rate 19 Blood Pressure 143/66 H 120/74 Blood Pressure [Right Arm] 156/69 H Blood Pressure Mean 98 97 Blood Pressure Mean [Right Arm] 98 Blood Pressure Source [Right Arm] Automatic Cuff Blood Pressure Position [Right Arm] Supine 02 Sat by Pulse Oximetry 98 98 98 Oxygen Delivery Method Room Air 10/14/24 14:57 10/14/24 15:00 10/14/24 16:54 Temperature 98 F Temperature Source Oral Pulse Rate 72 72 68 Pulse Rate [Right Radial] Respiratory Rate 18 Blood Pressure 130/82 141/70 H 154/73 H Blood Pressure [Right Arm] Blood Pressure Mean 98 103 Blood Pressure Mean [Right Arm] Blood Pressure Source [Right Arm] Blood Pressure Position [Right Arm] 02 Sat by Pulse Oximetry 97 97 Oxygen Delivery Method Room Air Lab Data Labs: Lab Results 10/14/24 14:23: D-Dimer 0.52 H, Sodium 139, Potassium 4.1, Chloride 99, Carbon Dioxide 31 H, Anion Gap 13.1, BUN 12, Creatinine 0.70, Estimated Creat Clear 77, Estimated GFR 83, Est GFR ( Amer) 100, Glucose 103 H, Calcium 9.0, Magnesium 1.9, Total Bilirubin 0.5, AST 33, ALT 18, Alkaline Phosphatase 49, Troponin I < 0.01, NT-Pro-B Natriuret Pep 221 H, Total Protein 6.5, Albumin 3.9, Globulin 2.6, Albumin/Globulin Ratio 1.5 10/14/24 14:36: VBG pH 7.43 H, VBG pCO2 41.9, VBG pO2 166.9 H, VBG HCO3 27.0, V BG Total CO2 28.3 H, VBG O2 Saturation 99.1 H, VBG Base Excess 2.6 H, VBG Lactic Acid 2.0 10/14/24 14:50: Chlamy pneumoniae PCR Not detected, Adenovirus (PCR) Not detected, B. pertussis DNA (PCR) Not detected, Coronavirus OC43 (PCR) Not detected, Coronavirus HKU1 (PCR) Not detected, Coronavirus 229E (PCR) Not detected, SARS-CoV-2 (PCR) Not detected, Coronavirus NL63 (PCR) Not detected, Human Metapneumovir PCR Not detected, Influenza A (H1) PCR Not detected, Influ A (H1N1/09) PCR Not detected, Influenza A (H3) PCR Not detected, Influenza Type A (PCR) Not detected, Influenza Type B (PCR) Not detected, M. pneumoniae (PCR) Not detected, Parainfluenza 1 (PCR) Not detected, Parainfluenza 2 (PCR) Not detected, Parainfluenza 3 (PCR) Not detected, Parainfluenza 4 (PCR) Not detected, RSV (PCR) Not detected, Entero/Rhino (PCR) Not detected 10/14/24 14:54: WBC 11.0 H, RBC 3.80 L, Hgb 10.3 L, Hct 33.1 L, MCV 87.1, MCH 27.1, MCHC 31.1 L, RDW 16.0, Plt Count 207, MPV 9.8, Neut % (Auto) 69.2, Lymph % (Auto) 22.8, [place] % (Auto) 6.2, Eos % (Auto) 0.9, Baso % (Auto) 0.4, Neut # (Auto) 7.6, Lymph # (Auto) 2.5, [place] # (Auto) 0.7, Eos # (Auto) 0.1, Baso # (Auto) 0.0 10/14/24 14:55: Blood Type B Positive, Antibody Screen Negative Response Orders (Tests/Meds): ED MEDICATIONS Discontinued Medications Generic Name Dose Route Start Last Admin Trade Name Freq PRN Reason Stop Dose Admin Albuterol/Ipratropium 9 ml 10/14/24 14:33 Ipratropium/Albuterol 3 Ml Neb IH 10/14/24 14:34 ONCE ONE Dexamethasone Sodium Phosphate 10 mg 10/14/24 14:33 Dexamethasone 4mg/Ml 5ml Mdv IV 10/14/24 14:34 ONCE ONE ORDERS Category Date Time Status Type and Screen Stat BBK 10/14/24 14:55 Completed Chest XR -- portable [XR chest portable] Stat Exams 10/14/24 14:33 Completed POCUS Point of Care (ER Only) Stat Exams 10/14/24 14:07 Completed BNP [NT Pro Brain Natriuretic Pep.] Stat Lab 10/14/24 14:23 Completed CBC w/Auto Diff [Complete Blood Count Auto Diff] Stat Lab 10/14/24 14:54 Completed CMP [Comprehensive Metabolic Panel] Stat Lab 10/14/24 14:23 Completed D-Dimer Stat Lab 10/14/24 14:23 Completed Full Resp Panel w/COVID ([facility]) Routine Lab 10/14/24 14:50 Completed Magnesium Stat Lab 10/14/24 14:23 Completed Trop I [Troponin I] Stat Lab 10/14/24 14:23 Completed VBG [Venous Blood Gas] Stat RT 10/14/24 14:36 Completed MDM Narrative Medical Decision Narrative: In summary patient is a 69-year-old female who presents to the emergency department for evaluation of dyspnea. Patient is hemodynamically stable with a blood pressure 156/69 pulse 78 sinus rhythm on the bedside monitor breathing 19 times minute satting at 98% on 2 L by nasal cannula which is her baseline upon arrival, and afebrile. Physical exam is remarkable for diminished air entry bilaterally in all 4 desai. I do not hear any adventitious sounds she has no increased work of breathing or accessory muscle use however she has a delayed expiratory phase with pursed lips. Cardiovascular is S1-S2 regular rate and rhythm without murmurs gallops rubs or thrills.. Differential diagnosis includes COPD with acute exacerbation versus pneumonia versus PE and less likely but possible iron deficiency anemia etc. Initial workup will be conducted with hematologic labs twelve-lead EKG plain film chest x-ray and VBG. Initial interventions include DuoNeb Decadron. Initial workup reviewed by me and her hematologic labs are nonactionable my informal interpretation of the plain films chest x-ray shows no acute processes. Upon repeat evaluation patient reported significant improvement after DuoNeb.. Given this patient is appropriate for discharge with recommendations to start utilizing her nebulizer up to every 6 hours as needed and should she have any persistent new or worsening signs or symptoms to follow-up with PCP or return to the ER as needed. Patient verbalizes understanding and agreement. I was consulted by the BILLY, and we discussed the complexity of the problems being addressed. I approve the treatment and management plan for this patient's care in the emergency department, thus performing a substantive portion of the medical decision making. Javi Kulkarni MD
[2024-10-14 14:30] VITALS: BP 120/74; PULSE 73; O2SAT 98
--- NOTE | 2024-10-14 14:33 | XR_ITS ---
FINAL REPORT TECHNIQUE: Single view chest CLINICAL HISTORY: Dyspnea COMPARISON: 05/01/2023 FINDINGS: A single view of the chest was obtained. The heart and mediastinum are within normal limits. There is a densely calcified right paratracheal lymph node. Calcified granulomas are seen bilaterally. There are chronic interstitial changes. The lungs are otherwise clear. There is no pneumothorax. IMPRESSION: No acute cardiopulmonary process. Reviewed, Interpreted and Dictated by Brendan Alatorre MD Transcribed by Delfina Luz Authenticated and [facility]
[2024-10-14 14:57] VITALS: BP 130/82; PULSE 72; O2SAT 97
[2024-10-14 14:57] LABS: Adenovirus,PCR Not Detected (NotDetected); Chlamydophila Pneumoniae, PCR Not Detected (NotDetected); Coronavirus 19, PCR Not Detected (NotDetected); Coronovirus HKU1,PCR Not Detected (NotDetected); Influenza A, PCR Not Detected (NotDetected); Influenza AH1, 2009 Not Detected (NotDetected); Influenza AH1, PCR Not Detected (NotDetected); Influenza AH3,PCR Not Detected (NotDetected); Influenza B, PCR Not Detected (NotDetected); Mycoplasma Pneumoniae, PCR Not Detected (NotDetected); Parainfluenza 1, PCR Not Detected (NotDetected); Parainfluenza 2, PCR Not Detected (NotDetected); Parainfluenza 3, PCR Not Detected (NotDetected); Parainfluenza 4, PCR Not Detected (NotDetected)
[2024-10-14 14:57] LABS: Albumin Level 3.9 g/dl (3.5-5.0); Chloride 99 mmol/L (98-107); Sodium 139 mmol/L (136-145)
[2024-10-14 14:58] LABS: Potassium 4.1 mmoL/L (3.5-5.1)
[2024-10-14 14:59] LABS: Lactate Venous 2.0 mmol/L (0.4-2.0); VBG HCO3 27.0 mmol/L (23-30); VBG PCO2 41.9 mmol/L (35-51); VBG PH 7.43 mmol/L (7.31-7.41); VBG PO2 166.9 mmol/L (28-40)
[2024-10-14 15:00] VITALS: BP 141/70; PULSE 72; O2SAT 97
[2024-10-14 15:00] LABS: Alanine Aminotransferase 18 U/L (12-78); Anion Gap 13.1 mEq/L (5-15); Aspartate Amino Transferase 33 U/L (14-36); Blood Urea Nitrogen 12 mg/dl (7-17); Carbon Dioxide 31 mmol/L (22.0-30.0); Creatinine Clearance Estimated 77 mL/min (50-200); Creatinine,Serum 0.70 mg/dl (0.52-1.04); Estimated Glomerular Filt Rate 83 ml/min (>60); GFR (African American) 100 ML/MIN (>60); Magnesium 1.9 mg/dl (1.6-2.3)
[2024-10-14 15:01] LABS: Albumin/Globulin Ratio 1.5 (1.1-1.8); Alkaline Phosphatase 49 U/L (38-126); Bilirubin,Total 0.5 mg/dl (0.2-1.3); Calcium 9.0 mg/dl (8.4-10.2); Globulin 2.6 g/dL (1.3-3.2); Glucose 103 mg/dl (74-100); Total Protein,Serum 6.5 g/dl (6.3-8.2)
[2024-10-14 15:09] LABS: Hematocrit 33.1 % (37.0-47.0); Hemoglobin 10.3 g/dL (12.2-16.2); Immature Granulocytes % 0.5 %; Mean Corpuscular HGB Conc 31.1 g/dL (31.8-35.4); Mean Corpuscular Hemoglobin 27.1 pg (27.0-31.2); Mean Corpuscular Volume 87.1 fl (81-99); Nucleated Red Blood Cells % 0 %; Platelet Count 207 K/mm3 (142-424); Red Blood Count 3.80 M/mm3 (4.20-5.40); Red Cell Distribution Width-SD 51.1 fL; White Blood Count 11.0 K/mm3 (4.8-10.8)
[2024-10-14 15:10] LABS: NT Pro Brain Natriuretic Pep. 221 pg/mL (0-125)
[2024-10-14 15:23] LABS: Troponin I < 0.01 ng/ml (0.00-0.034)
[2024-10-14 15:53] LABS: D-Dimer 0.52 ug/mL (0.0-0.5)
[2024-10-14 16:54] VITALS: BP 154/73; PULSE 68; RESP 18; TEMP 36.6; O2SAT 98
== END 2024-10-14 16:54 | disposition home or self-care (01) ==
PROVIDERS: Physician Assistant; Emergency Provider Student in an Organized Health Care Education/Training Program; PCP Family Medicine
DX: J44.1 Chronic obstructive pulmonary disease with (acute) exacerbation (principal); Z87.891 Personal history of nicotine dependence; Z99.81 Dependence on supplemental oxygen
CPT/HCPCS: 0223U; 36415; 71045; 80053; 82803; 83735; 83880; 84484; 85025; 85378; 86850; 87633; 93005; 99284

== ENCOUNTER 2024-10-31 16:13 | Emergency (ER) | payer MEDICARE, OTHER, SELFPAY ==
[2024-10-31] VITALS (9 sets, daily range): BP systolic 122–144; BP diastolic 49–73; PULSE 65–77; RESP 17–20; TEMP 36.7–36.9; O2SAT 98–100; BMI 32.5
--- OUTSIDE RECORDS SUMMARY | 2024-10-31 16:59 | XMS_ITS | Clinical Summary ---
Author Organization [facility] Address [address] [place] [address] Care Team Providers Care Vp Cardiovascular Name Role Phone Rosa M Hollingsworth Primary Care Provider [phone] Duc Sinha MD Unavailable [phone] Allergies Active Allergy Reactions Criticality Noted Date [...] Encounters Date Type Department Care Team Description 10/19/2024 Telephone [facility] [address] [place] [address] Maren Martini MD 10/13/2024 Telephone [facility] [place] [address] [place] [address] Bessy Pearson 09/03/2024 Orders Only [facility] [place] [address] [place] [address] Coral Lira, RN Carotid artery stenosis, unilateral, [...] Care Team (Late st Contact Info) Description 12/08/2024 1:40 PM EDT Office Visit [facility] [address] 5th Floor [address], [address] [place] [address] Maren Martini MD [address] [facility] [address] [place] [address] Health Maintenance Due Date Last Done Comments [...] - Risk 60-74 years 1-dose series) 2015 [id number] Vaccine (3 - Pfizer risk series) 02/03/2021 [...] Antibody Negative Negative 05/01/2023 11:23 PM EST [facility]ALTH[facility] Blood Venous blood specimen / Unknown Venipuncture / Unknown 05/01/2023 10:22 PM EST 05/01/2023 10:42 PM EST us Dylan Magana MD LAB BLOOD ORDERABLES Final Re sult [facility] [address] [place] [address] from Last 3 Months or Most Recently Relevant to Health Maintenance Insurance [employer] MEDICARE Advance Directives * Full Code (Latest Code Status on File) Date Activated Date Inactivated Comments 09/28/2023 4:16 AM 10/01/2023 8:26 PM Question Answer Comments Patient has decision-making capacity? Yes Care Teams Vp Cardiovascular Relationship Specialty Start Date End Date Rosa M Hollingsworth PA [address] [place] [address] PCP - General 08/19/20 Duc Sinha MD [address] [address] Referring Physician Cardiology 10/11/20
--- OUTSIDE RECORDS SUMMARY | 2024-10-31 16:59 | XMS_ITS | Encounter Summary ---
Author Organization [facility] Address [address] [place] [address] Care Team Providers Care Civil Rights Attorney Name Role Phone Rosa M Hollingsworth Primary Care Provider [phone] Duc Sinha MD Unavailable [phone] Encounter Details Date Type Department Care Team (Late st Contact Info) Description 10/13/2024 Telephone [facility] [place] [address] [place] [address] [place] [address] Social History Tobacco Use Types Packs/Day Years [...] Patient Name: Александр Laureano :1955 Date:10/13/2024 Affiliate site:[facility] Referring Physician:Sheree August Education/ Information provided: This Nurse Liaison spoke with Александр Laureano's grandchild, Martha, prior to an appointment on 10/20/2024. Explained nurse liaison services offered through [facility]. Discussed appointment necessity, and subspecialty clinic the pt will be seeing. Patient verbalizes understanding.Patient denied any barriers to arriving to clinic visit. All questions answered. Provided patient with liaison contact information and encouraged patient to call with any questions, concerns or assistance needs. Will follow up with patient after appointment. Bessy Pearson [facility] Nurse Liaison [phone] documented in this encounter Plan of Treatment Upcoming Encounters Date Type Department Care Team (Late st Contact Info) Description 12/08/2024 1:40 PM EDT Office Visit [facility] [address] [facility] 5th Floor Wing [address], [address] [place] [address] Maren Martini MD [address] [facility] [address] [place] [address] documented as of this encounter Visit Diagnoses Not on filedocumented in this encounter Additional Health Concerns Assessment Noted Time A Body Mass Index follow-up plan has been documented for the patient 10/01/2023 3:38 PM EDT documented as of this encounter Care Teams Civil Rights Attorney Relationship Specialty Start Date End Date Rosa M Hollingsworth PA [address] [place] [address] PCP - General 08/19/20 Duc Sinha MD [address] [address] Referring Physician Cardiology 10/11/20 documented as of this encounter
--- OUTSIDE RECORDS SUMMARY | 2024-10-31 16:59 | XMS_ITS | Encounter Summary ---
Author Organization [facility] Address [address] [place] [address] Care Team Providers Care Intelligence Chief Name Role Phone Rosa M Hollingsworth Primary Care Provider [phone] Duc Sinha MD Unavailable [phone] Reason for Referral * Consultation (Routine) - Authorized Specialty Diagnoses / Procedures Referred By Contact Referred To Contact Vascular Surgery / Comprehensive [facility] Clinic Diagnoses Carotid artery stenosis, unilateral, right Colleen August APRN [address] [facility] [address] [place] [address] Phone: tel: fax: [facility] [address] [facility] 5th Floor [address], [address] [place] [address] Phone: tel: fax: Referral ID Status Reason Start Date Expiration Date Visits Requested Visits Authorized [id number] Authorized Specialty Services Required 09/03/2024 03/05/2026 1 1 Encounter Details Date Type Department Care Team (Late st Contact Info) Description 09/03/2024 Orders Only [facility] [place] [address] [place] [address] Coral Lira, RN HOSP. SPECIAL DIAGNOSTIC FACILITIES [...] this. Now being re-referred. Images requested from [facility] neck / head done 05/15/24. documented in this encounter Plan of Treatment Upcoming Encounters Date Type Department Care Team (Late st Contact Info) Description 12/08/2024 1:40 PM EDT Office Visit [facility] [address] [facility] 5th Floor Wing [address], [address] [place] [address] Maren Martini MD [address] [facility] [address] [place] [address] Scheduled Referrals Name Type Priority [...] documented as of this encounter Care Teams Intelligence Chief Relationship Specialty Start Date End Date Rosa M Hollingsworth PA [address] [place] [address] PCP - General 08/19/20 Duc Sinha MD [facility] [place] [address] Referring Physician Cardiology 10/11/20 documented as of this encounter
--- OUTSIDE RECORDS SUMMARY | 2024-10-31 16:59 | XMS_ITS | Clinical Summary ---
Author Organization [facility] Address [address] [place] [address] Care Team Providers Care Manager Valuation Name Role Phone Comfort Shah APRN Primary Care Provider + [phone] Allergies Active Allergy Reactions Criticality Noted Date Comments Codeine 12/13/2016 Other 12/13/2016 STEROIDS Promethazine Hcl 12/13/2016 Medications prasugrel (EFFIENT) 10 MG tablet Take 10 mg by mouth Daily. Active atenolol (TENORMIN) 25 MG tablet Take 25 mg by mouth Daily. Active losartan-hydroch lorothiazide (HYZAAR) 50-12.5 MG per tablet Take 1 tablet by mouth Daily. Active rosuvastatin (CRESTOR) 10 MG tablet Take 10 mg by mouth Daily. Active LORATADINE ALLERGY RELIEF PO Take 10 mg by mouth Daily. Active aspirin 81 MG EC tablet Take 81 mg by mouth Daily. Active omeprazole (priLOSEC) 40 MG capsule Take 40 mg by mouth Daily. Active Active Problems Problem Noted Date Diagnosed Date Stenosis of right carotid artery 12/26/2016 Overview (12/26/2016): Added automatically from request for surgery [id number] Family History Medical History Relation Name Comments Other Father KNOWS NOTHING A BOUT HER FATHER Kidney disease Mother Relation Name Status Comments Father Mother Social History Tobacco Use Types Packs/Day Years Used Date Smoking Tobacco: Every Day Cigarettes 0.5 40 Smokeless Tobacco: Never Comments:HAS SMOKED UP TO 2P PD AT TIMES Alcohol Use Standard Drinks/Week Comments No 0 (1 standard drink = 0.6 oz pur e alcohol) Abuse Screen Answer Date Recorded Unsafe at Home or Work/School Not on file Feels Threatened by Someone? Not on file 02/2023 Does Anyone Keep You from Co ntacting Others or Doint Things Outside the Home? Not on file 01/16/2023 Physical Sign of Abuse Present Not on file 1 Housing Stability Answer Date Recorded Current Living Arrangements Not on file 01/06 Potentially Unsafe Housing Conditions Not on mariel e 01/16/2023 Family and Community Support Answer Arjun e Recorded Help with Day-to-Day Activities Not on file 01/16/2023 Lonely or Isolated Not on file 01/16/2023 Employment Answer Date Recorded Do you want help finding or keeping work or a rito b? Not on file 01/16/2023 Disabilities Answer Date Recorded Concentrating, Remembering, or Making Decisions Difficulty Not on file 01/16/2023 Doing Errands Independently Difficulty Not on fi le 01/16/2023 Education Answer Date Recorded Help with school or training? Not on file Preferred Language Not on file 01/16/2023 Comments Unknown Sex and Gender Information Value Date Recorded Sex Assigned at Not on file Legal Sex Female 1:21 PM EDT Gender Identity Not on file Sexual Orientation Not on file Occupation Industry Job Start Date Job End Date DISABLED Not on file Not on file Not on file Last Filed Vital Signs Vital Sign Reading Time Taken Comments Blood Pressure 143/74 12/14/2016 12:34 PM EDT Pulse 78 12/14/2016 12:34 PM EDT Temperature 36.5 C (97.7 F) 12/14/2016 12:34 PM EDT Respiratory Rate - - Oxygen Saturation 95% 12/14/2016 12:34 PM EDT Inhaled Oxygen Concentration - - Weight 83.5 kg (184 lb) 12/14/2016 12:34 PM EDT Height 160 cm (5' 3 ) 12/14/2016 12:34 PM EDT Body Mass Index 32.59 12/14/2016 12:34 PM EDT Plan of Treatment Health Maintenance Due Date Last Done Comments DXA SCAN 1955 Pneumococcal Vaccine 50+ (1 of 2 - PCV) 1974 TDAP/TD VACCINES (1 - Tdap) 1974 MAMMOGRAM 1995 COLOGUARD 2000 COLON CANCER SCREENING 5 YEA R SIGMOIDOSCOPY 2000 COLONOSCOPY 2000 [address] CANCER SCREENING 2000 CT COLONOGRAPHY 2000 FECAL OCCULT BLOOD TEST 2000 FIT Testing (1 year) 2000 ZOSTER VACCINE (1 of 2) 2005 ANNUAL PHYSICAL 12/14/2016 COVID-19 Vaccine ( season) 12/08/202304/2020, 12/16/2020 INFLUENZA VACCINE 01/06/2025 HEPATITIS C SCREENING Completed 05/01/2023 Insurance MEDICARE A & B Member Subscriber Plan / Payer (Ef fective 2007-Present) Name:Александр Laureano Member ID:[id number] Relation to Subscriber:Self Name:Александр Laureano Subscriber ID:[id number] Payer ID:[id number] Group ID:Not on file Type:Not on file Address: [facility] [id number] Care Teams Manager Valuation Relationship Specialty Start Date End Date Comfort Shah APRN [address] [place] [address] [place] [address] [place] [address] PCP - General Family Medicine 10/12/16
--- OUTSIDE RECORDS SUMMARY | 2024-10-31 16:59 | XMS_ITS | Encounter Summary ---
Author Organization [facility] Address [address] [place] [address] Care Team Providers Care Mononitrotoluene Operator Name Role Phone Rosa M Hollingsworth Primary Care Provider [phone] Duc Sinha MD Unavailable [phone] Encounter Details Date Type Department Care Team (Late st Contact Info) Description 10/19/2024 Telephone [facility] [address] [facility] 5th Floor [address] [place] [address] Maren Martini MD [address] [facility] [address] [place] [address] Social History Tobacco Use Types Packs/Day Years [...] encounter Miscellaneous Notes * Telephone Encounter - Marquise Laguna P - 10/19/2024 11:19 AM EDT LVM for granddaughter calling to confirm tmr's consult with Dr. Martini. Informed about time/date/location/provider she will be seeing. Gave clinic number to call back to confirm/cancel/reschedule. documented in this encounter Plan of Treatment Upcoming Encounters Date Type Department Care Team (Late st Contact Info) Description 12/08/2024 1:40 PM EDT Office Visit [facility] [address] [facility] 5th Floor [address] [place] [address] Maren Martini MD [address] [facility] [address] [place] [address] documented as of this encounter Visit Diagnoses Not on filedocumented in this encounter Additional Health Concerns Assessment Noted Time A Body Mass Index follow-up plan has been documented for the patient 10/01/2023 3:38 PM EDT documented as of this encounter Care Teams Mononitrotoluene Operator Relationship Specialty Start Date End Date Rosa M Hollingsworth PA [address] [place] [address] PCP - General 08/19/20 Duc Sinha MD [address] [address] Referring Physician Cardiology 10/11/20 documented as of this encounter
--- OUTSIDE RECORDS SUMMARY | 2024-10-31 16:59 | XMS_ITS | Encounter Summary ---
Author Organization [facility] Address [address] [place] [address] Care Team Providers Care Cotton Stripper Name Role Phone Comfort Shah APRN Primary Care Provider + [phone] Encounter Details Date Type Department Care Team (Late st Contact Info) Description 04/02/2017 Telephone [facility] [address] [facility] [address] [place] [address] Ty Vaughn Social History Tobacco Use Types Packs/Day Years [...] file Not on file Not on file documented as of this encounter Miscellaneous Notes * Telephone Encounter - Ty Vaughn - 04/02/2017 11:59 AM EST S/w pt to follow up on surgery, pt stated it would be a while before she could have surgery due to a sick family member . Pt will call when ready to proceed documented in this encounter Plan of Treatment Not on file documented as of this encounter Visit Diagnoses Not on filedocumented in this encounter Care Teams Cotton Stripper Relationship Specialty Start Date End Date Comfort Shah APRN [address] [place] [address] [place] [address] [place] [address] PCP - General Family Medicine 10/12/16 documented as of this encounter
--- NOTE | 2024-10-31 17:01 | ED_ITS ---
<Statement entered by Gisela Godinez DO - 10/31/24 23:08> I was consulted by the BILLY, and we discussed the complexity of the problems being addressed. I approved the treatment and management plan for this patient's care in the emergency department, thus performing a substantive portion of the medical decision making. Gisela Godinez DO Discharge Plan Disposition Patient Disposition: Home, Self-Care Condition: Good Prescriptions Prescriptions: New desonide 0.05 % cream 1 applic topical DAILY Qty: 15 0RF fluconazole 150 mg tablet 150 mg PO WEEKLY 28 Days Qty: 4 0RF No Action aspirin [Aspir-81] 81 mg tablet,delayed release (DR/EC) 81 mg PO DAILY lidocaine [Lidoderm] 5 % adhesive patch,medicated 1 patch topical DAILY Qty: 30 0RF Rx Instructions: leave on most painful area for up to 12 hrs Debrox 6.5 % drops 5 drp otic (ear) BID 4 Days Qty: 15 0RF nystatin 100,000 unit/gram powder 1 applic topical BID Qty: 30 3RF meclizine 25 mg tablet 25 mg PO TID Qty: 90 2RF calcium carbonate-vitamin D3 600 mg-10 mcg (400 unit) tablet 1 tab PO DAILY Qty: 90 3RF fluticasone propionate 50 mcg/actuation spray,suspension See Rx Instructions .ROUTE .COMPLEX Qty: 16 3RF Dose Instruction: USE ONE SPRAY INTO EACH NOSTRIL ONCE DAILY Rx Instructions: USE ONE SPRAY INTO EACH NOSTRIL ONCE DAILY sennosides [senna] 8.6 mg tablet See Rx Instructions .ROUTE .COMPLEX Qty: 60 2RF Dose Instruction: TAKE ONE TABLET BY MOUTH 2 TIMES A DAY NEEDED FOR CONSTIPATION Rx Instructions: TAKE ONE TABLET BY MOUTH 2 TIMES A DAY NEEDED FOR CONSTIPATION guaifenesin 200 mg tablet See Rx Instructions .ROUTE .COMPLEX Qty: 90 1RF Dose Instruction: TAKE ONE TABLET BY MOUTH FOUR TIMES A DAY NEEDED FOR CONGESTION Rx Instructions: TAKE ONE TABLET BY MOUTH FOUR TIMES A DAY NEEDED FOR CONGESTION cetirizine 10 mg tablet See Rx Instructions .ROUTE .COMPLEX Qty: 90 0RF Dose Instruction: TAKE ONE TABLET BY MOUTH ONCE A DAY FOR ALLERGIES Rx Instructions: TAKE ONE TABLET BY MOUTH ONCE A DAY FOR ALLERGIES duloxetine 30 mg capsule,delayed release(DR/EC) See Rx Instructions .ROUTE .COMPLEX Qty: 30 2RF Dose Instruction: TAKE 1 CAPSULE BY MOUTH ONCE A DAY Rx Instructions: TAKE 1 CAPSULE BY MOUTH ONCE A DAY montelukast 10 mg tablet See Rx Instructions .ROUTE .COMPLEX Qty: 30 2RF Dose Instruction: TAKE ONE TABLET BY MOUTH ONCE A DAY FOR ALLERGIES/BREATHING Rx Instructions: TAKE ONE TABLET BY MOUTH ONCE A DAY FOR ALLERGIES/BREATHING potassium chloride 20 mEq tablet,ER particles/crystals See Rx Instructions .ROUTE .COMPLEX Qty: 30 3RF Dose Instruction: TAKE ONE TABLET BY MOUTH ONCE A DAY Rx Instructions: TAKE ONE TABLET BY MOUTH ONCE A DAY albuterol sulfate 90 mcg/actuation HFA aerosol inhaler See Rx Instructions .ROUTE .COMPLEX Qty: 8.5 2RF Dose Instruction: INHALE 2 PUFFS BY MOUTH EVERY 4 HOURS NEEDED FOR SHORTNESS OF BREATH Rx Instructions: INHALE 2 PUFFS BY MOUTH EVERY 4 HOURS NEEDED FOR SHORTNESS OF BREATH nitrofurantoin macrocrystal 100 mg capsule 100 mg PO BID 5 Days Qty: 10 0RF Rx Instructions: must administer with a meal/food nystatin 100,000 unit/gram cream 1 applic topical TID Qty: 30 3RF tramadol 50 mg tablet 50 mg PO QHS Qty: 30 0RF levalbuterol HCl 0.31 mg/3 mL solution for nebulization See Rx Instructions inhalation Q8H PRN (Reason: shortness of breath or wheezing) Qty: 90 2RF Rx Instructions: inhaled every 8 hours PRN; ferrous sulfate 325 mg (65 mg iron) tablet 325 mg PO DAILY Qty: 30 2RF fluconazole 150 mg tablet See Rx Instructions .ROUTE .COMPLEX 7 Days Qty: 7 0RF Dose Instruction: TAKE 1 TABLET BY MOUTH today. Rx Instructions: TAKE 1 TABLET BY MOUTH today. ipratropium-albuterol 0.5 mg-3 mg(2.5 mg base)/3 mL solution for nebulization 3 ml inhalation Q6H 90 Days Qty: 180 6RF methocarbamol 500 mg tablet See Rx Instructions .ROUTE .COMPLEX Qty: 120 3RF Dose Instruction: TAKE 1 TABLET BY MOUTH FOUR TIMES DAILY Rx Instructions: TAKE 1 TABLET BY MOUTH FOUR TIMES DAILY furosemide 20 mg tablet See Rx Instructions .ROUTE .COMPLEX Qty: 20 3RF Dose Instruction: TAKE 1 TABLET BY MOUTH EVERY DAY NEEDED FOR EDEMA Rx Instructions: TAKE 1 TABLET BY MOUTH EVERY DAY NEEDED FOR EDEMA famotidine 20 mg tablet 20 mg PO DAILY pantoprazole 40 mg tablet,delayed release (DR/EC) 40 mg PO DAILY losartan-hydrochlorothiazide 50-12.5 mg tablet 1 tab PO DAILY atenolol 25 mg tablet 25 mg PO DAILY levothyroxine 25 mcg tablet 25 mcg PO DAILY rosuvastatin 40 mg tablet 40 mg PO DAILY Referrals Follow up/Referrals: Marj Hughes APRN [Primary Care Provider, Family Practice] - See instructions Activity Restrictions/Add. Instructions Additional Instructions/Restrictions: Please return to the emergency department with any worsening signs or symptoms, please take your medications as prescribed, please take Diflucan 100 mg p.o. once weekly for 4 weeks or until dermatology follow-up, recommend utilizing ibuprofen ice Tylenol and other anti-inflammatory medications as well as rest for your left wrist/hand sprain, please utilize your cream as prescribed. Clinical Impressions Clinical Impression: Sprain and strain of left hand, Sprain and strain of left wrist, Candidiasis, intertriginous, Fall Instructions Patient Instructions: DI for Wrist Sprain, DI for Wrist Strain, DI for Intertrigo Print Language Print Language: Maori Discharge ED Provider: Gisela Godinez General Adult HPI General Chief complaint: Fall Stated complaint: A/O 10-01 fell on left hand/arm Time Seen by Provider: 10/31/24 16:49 Mode of Arrival: Ambulatory Source of Information: Patient Description of Symptoms (Recalled from ER Triage Doc. by RN): Patient presents to ED with c/o left hand and wrist pain after a fall earlier today. Patient states she was walking up the steps and tripped because one step is higher than the other. Patient denies LOC, denies hitting her head. ASA use daily. Patient also c/o a rash in her marissa area, states sh ehas a cream for it but it has not helped at all. History of Present Illness HPI narrative: 69-year-old female presents emergency department with a FOOSH injury to the left hand, patient states this afternoon she went to go step up , on a uneven stair , when she tripped, falling on her left arm/wrist, on outstretched fashion, she complains of pain and some limited range of motion in the left hand/wrist, denies any other extremity pain, denies any presyncopal or syncopal event, denies any chest pain shortness of breath fever chills cough congestion, abdominal pain no nausea no constipation no diarrhea, no urinary type symptomatology, patient denies striking the head, denies any LOC, is not on anticoagulant therapy. Patient is current everyday smoker, denies any alcohol or drug use, patient also does complain of a rash , in her genitourinary area that has been ongoing for several weeks, she is seeing her PCP for this, treated with what sounds like Diflucan p.o., nystatin cream and nystatin powder with lit tle no relief, she has even tried to change her pads , and use the not a plastic ones , she denies any recent/risky sexual contacts, no vaginal bleeding no vaginal discharge, just describes it as vaginal irritation and itching around her intertriginous area. Initial triage vitals unremarkable. She has utilized Tylenol with some relief to her symptomatology. Other past medical history consistent with COPD, iron deficiency anemia, hyperlipidemia, pretension, CAD status post 1 stent placement, patient is on antiplatelet therapy with aspirin daily, Onset (ago): hour(s) Related Data Home Medications ?Medication ?Instructions ?Recorded ?Confirmed aspirin 81 mg tablet,delayed 81 mg PO DAILY 05/02/17 0 09/14/24 release (Aspir-) atenolol 25 mg tablet 25 mg PO DAILY 05/15/2412/31 famotidine 20 mg tablet 20 mg PO DAILY 05/15/2412/31 levothyroxine 25 mcg tablet 25 mcg PO DAILY 05/15/24 0 09/14/24 losartan 50 mg-hydrochlorothiazide 1 tab PO DAILY 2.5MG 05/15/24 09/14/24 12.5 mg tablet pantoprazole 40 mg tablet,delayed 40 mg PO DAILY 05/1509/14/24 release rosuvastatin 40 mg tablet 40 mg PO DAILY 05/15/2412/31 Previous Rx's ?Medication ?Instructions ?Recorded lidocaine 5 % topical patch 1 patch topical DAILY #30 ea 12/03/23 (Lidoderm) carbamide peroxide 6.5 % ear drops 5 drp otic (ear) BI D 4 days #15 mL 05/13/24 (Debrox) meclizine 25 mg tablet 25 mg PO TID #90 tabs calcium 600 mg (as 1 tab PO DAILY #90 tabs 06/06 carbonate)-vitamin D3 10 mcg (400 unit) tablet fluticasone propionate 50 See Rx Instructions .Route 0 07/10/24 mcg/actuation nasal .COMPLEX #16 grams spray,suspension sennosides 8.6 mg tablet (senna) See Rx Instructions . Route 07/20/24 .COMPLEX #60 ea guaifenesin 200 mg tablet See Rx Instructions .Route 0 07/22/24 .COMPLEX #90 tabs cetirizine 10 mg tablet See Rx Instructions .Route 0 08/05/24 .COMPLEX #90 tabs duloxetine 30 mg capsule,delayed See Rx Instructions . Route 08/24/24 release .COMPLEX #30 caps montelukast 10 mg tablet See Rx Instructions .Route 0 08/24/24 .COMPLEX #30 tabs albuterol sulfate 90 mcg/actuation See Rx Instructions .Route 09/03/24 aerosol inhaler .COMPLEX #8.5 grams potassium chloride 20 mEq See Rx Instructions .Route 0 09/03/24 tablet,extended release(part/cryst) .COMPLEX #30 tabs nystatin 100,000 unit/gram topical 1 applic topical BI D #30 grams 09/07/24 powder levalbuterol HCl 0.31 mg/3 mL See Rx Instructions inha lation Q8H 09/14/24 solution for nebulization PRN shortness of breath or wheezing #90 mL nitrofurantoin macrocrystal 100 mg 100 mg PO BID 5 day s #10 caps 09/14/24 capsule nystatin 100,000 unit/gram topical 1 applic topical TI D #30 grams 09/14/24 cream tramadol 50 mg tablet 50 mg PO QHS #30 tabs ferrous sulfate 325 mg (65 mg 325 mg PO DAILY #30 tabs 09/16/24 iron) tablet fluconazole 150 mg tablet See Rx Instructions .Route 0 09/24/24 .COMPLEX 7 days #7 tabs ipratropium 0.5 mg-albuterol 3 mg 3 ml inhalation Q6H COPD 90 days 10/07/24 (2.5 mg base)/3 mL nebulization #180 mL soln furosemide 20 mg tablet See Rx Instructions .Route 0 10/30/24 .COMPLEX #20 tabs methocarbamol 500 mg tablet See Rx Instructions .Route 10/30/24 .COMPLEX #120 tabs desonide 0.05 % topical cream 1 applic topical DAILY # 15 grams 10/31/24 fluconazole 150 mg tablet 150 mg PO WEEKLY 4 weeks #4 tabs 10/31/24 Allergies Allergy/AdvReac Type Severity Reaction Status Date / Time amoxicillin (From Augmentin) Allergy Mild Abdominal Verified 09/14/24 14:28 complaints clavulanic acid (From Allergy Mild Abdominal Verified 09/14/24 14:28 Augmentin) complaints hydrocortisone Allergy Mild Verified 09/14/24 14:28 prednisolone Allergy Mild Verified 09/14/24 14:28 prednisone Allergy Mild Verified 09/14/24 14:28 codeine (CODEINE) Allergy Unknown Verified 09/14/24 14:28 promethazine (From PHENERGAN) Allergy Unknown Verified 09/14/24 14:28 phenobarbital AdvReac Unknown Verified 09/14/24 14:28 IV dye AdvReac Unknown Uncoded 09/03/24 14:04 [facility] Disclaimer: The information contained in this section may have been updated after the patient was seen, as this information can be updated by other users. Medical History Ear pain Cerumen impaction Pre-operative cardiovascular examination Dysphagia Migraine GERD (gastroesophageal reflux disease) Depression Metatarsal bone fracture Hypothyroidism Vitamin D deficiency Heart murmur Tobacco abuse Carotid artery disease COPD (chronic obstructive pulmonary disease) HLD (hyperlipidemia) HHD (hypertensive heart disease) CAD (coronary artery disease) Surgical History H/O tubal ligation History of appendectomy Family History Other Kidney disease Social History Smoking Status: Former smoker alcohol intake: never substance use type: denies use current occupational status: disabled Travel in the last 8 weeks?: None household members: children housing: house Have you lived/traveled outside [place] in past 30 days?: No Contact w/someone who lives/traveled outside [place] past 30 days?: No Exposure to someone with infectious disease in past 14 days?: No Do you have a fever (greater than 100.4 F or 38 C)?: No Have you tested positive for COVID-19?: No Exposed to someone with COVID-19 in past 14 days?: No Do you have a sore throat?: No Do you have a cough?: No Do you have any weakness?: No Do you have any diarrhea?: No Are you experiencing any unusual bleeding?: No Do you have any muscle aches/pain?: No Do you have any abdominal pain?: No Are you experiencing loss of taste or smell?: No Other Medical History Have you received the Flu Vaccine for this season: No Have you received the Pneumonia Vaccine: Yes ROS Obtained: Yes All systems reviewed & no additional complaints except as documented Physical Exam General General appearance: alert and in no apparent distress Head Head exam: atraumatic and normocephalic Eye Eye exam: Present PERRL and EOMI ENT ENT exam: Present mucous membranes moist Neck Neck exam: Present normal inspection Chest Chest inspection: Present normal inspection and symmetric chest wall rise Respiratory Respiratory exam: Present normal lung sounds bilaterally; Absent respiratory distress Cardiovascular Cardiovascular exam: Present regular rate and normal rhythm Abdominal Exam Abdominal exam: Present soft; Absent tenderness External exam: Present erythema; Absent tenderness, swelling or lesions Expanded Exam OB exam: Present deferred Extremities Exam Extremities exam: Present normal inspection, full ROM, tenderness and other (Mild ecchymosis to the volar aspect of the patient's wrist, with pain to palpation around the wrist and thumb area, good finger opposition, otherwise neurovascular intact.); Absent edema or joint swelling Neurological Exam Neurological exam: Present alert and oriented X3 Psychiatric Psychiatric exam: Present normal affect Skin Skin exam: Present warm, dry, erythema and other (Erythremia, around the intertriginous area) Medical Decision Making Medical Records Medical records reviewed: Yes I reviewed the patient's medical records. Screening: Per USPSTF and CDC recommendations, given the prevalence of disease in our region, it is our hospital?s policy to screen for HIV and viral Hepatitis for all patients aged 18 and over and those with ongoing risk factors. Ernie Inquiry Pt receiving controlled substance: No Vital Signs: 10/31/24 16:49 10/31/24 16:53 10/31/24 17:00 Temperature 98.5 F Temperature Source Oral Pulse Rate 73 77 Pulse Rate [Left] 74 Respiratory Rate 19 19 17 Blood Pressure 144/72 H 137/67 Blood Pressure [Right Arm] 144/72 H Blood Pressure Mean 96 93 Blood Pressure Mean [Right Arm] 96 Blood Pressure Source [Right Arm] Automatic Cuff Blood Pressure Position [Right Arm] Supine 02 Sat by Pulse Oximetry 98 98 99 Oxygen Delivery Method Room Air Nasal Cannula Room Air Oxygen Flow Rate (LPM) 2 10/31/24 17:01 10/31/24 17:30 10/31/24 18:00 Temperature Temperature Source Pulse Rate 77 71 Pulse Rate [Left] Respiratory Rate 19 18 Blood Pressure 137/66 140/73 Blood Pressure [Right Arm] Blood Pressure Mean 100 105 Blood Pressure Mean [Right Arm] Blood Pressure Source [Right Arm] Blood Pressure Position [Right Arm] 02 Sat by Pulse Oximetry 98 99 99 Oxygen Delivery Method Nasal Cannula Nasal Cannula Oxygen Flow Rate (LPM) 2 2 10/31/24 18:30 Temperature Temperature Source Pulse Rate 65 Pulse Rate [Left] Respiratory Rate 17 Blood Pressure 143/70 H Blood Pressure [Right Arm] Blood Pressure Mean 94 Blood Pressure Mean [Right Arm] Blood Pressure Source [Right Arm] Blood Pressure Position [Right Arm] 02 Sat by Pulse Oximetry 98 Oxygen Delivery Method Nasal Cannula Oxygen Flow Rate (LPM) 2 Orders (Tests/Meds): ORDERS Category Date Time Status XR forearm LT 2V Stat Exams 10/31/24 17:22 Completed XR hand LT min 3V Stat Exams 10/31/24 17:22 Completed XR wrist LT min 3V Stat Exams 10/31/24 17:22 Completed Medical Decision Narrative: 69-year-old female presents emergency department with a FOOSH injury of the left hand/wrist occurred today and rash in the vaginal area for several weeks differential diagnose include but not limited to candidiasis, irritant contact dermatitis, allergic contact dermatitis, wrist fracture, wrist sprain, hand fracture, hand sprain among others. I along with the attending physician Dr. Godinez saw and examined the patient. Will obtain x-rays of the left wrist left hand and left forearm for further evaluation of characterization of the patient's FOOSH injury, once again, I will with the attending physician Dr. Godinez saw and examined the patient and performed a exam, patient appears to have satellite lesions and erythema and some macerated appearance of her intertriginous area, will prescribe long course of Diflucan, p.o under 50 mg, q. weekly for 4 weeks,., as well as barrier cream. Patient will need dermatology follow-up for this. I reviewed the patient's left forearm x-ray along the corresponding radiologic report, no acute finding I reviewed the patient's left wrist and left hand x-ray along the corresponding radiological reports, no acute findings identified. I discussed the results with the patient and with the bedside patient family and agreed with the current treatment plan/discharge plan. Recommend rest ice ibuprofen Tylenol, will give patient wrist brace here in the emergency department symptomatic relief of her wrist sprain/strain, patient voiced understanding and agreement Contreet plan/discharge plan, strict ED return precaution were given. Critical Care Critical Care Time Critical Care Time: No
--- NOTE | 2024-10-31 17:22 | XR_ITS ---
PROCEDURE INFORMATION: Exam: XR Left Wrist Exam date and time: 10/31/2024 5:40 PM Age: 69 years old Clinical indication: Injury or trauma; Fall; Other: Pain; Additional info: Foosh injury TECHNIQUE: Imaging protocol: Radiologic exam of the left wrist. Views: 3 or more views. COMPARISON: CR XR FOREARM LT 2V 10/31/2024 5:40 PM FINDINGS: Bones/joints: No fracture. Normal alignment. Degenerative changes at multiple joints most pronounced in scaphoid multangular joint. Mild osteopenia. Soft tissues: Unremarkable. IMPRESSION: No acute findings identified.
--- NOTE | 2024-10-31 17:22 | XR_ITS ---
PROCEDURE INFORMATION: Exam: XR Left Hand Exam date and time: 10/31/2024 5:40 PM Age: 69 years old Clinical indication: Injury or trauma; Fall; Blunt trauma (contusions or hematomas); Hand; Left; Additional info: Foosh injury TECHNIQUE: Imaging protocol: Radiologic exam of the left hand. Views: 3 or more views. COMPARISON: CR XR HAND LT MIN 3V 10/31/2024 5:40 PM FINDINGS: Bones/joints: No fracture. Normal alignment. Degenerative changes at multiple joints most pronounced in scaphoid multangular and distal interphalangeal joints. Mild osteopenia. Soft tissues: Unremarkable. IMPRESSION: No acute findings identified.
--- NOTE | 2024-10-31 17:22 | XR_ITS ---
PROCEDURE INFORMATION: Exam: XR Left Forearm Exam date and time: 10/31/2024 5:40 PM Age: 69 years old Clinical indication: Injury or trauma; Fall; Blunt trauma (contusions or hematomas); Arm, lower; Left; Additional info: Foosh injury TECHNIQUE: Imaging protocol: Radiologic exam of the left forearm. Views: 2 views. COMPARISON: CR XR HAND LT MIN 3V 10/31/2024 5:40 PM FINDINGS: Bones/joints: Normal. Soft tissues: Normal. IMPRESSION: No acute findings.
== END 2024-10-31 20:02 | disposition home or self-care (01) ==
PROVIDERS: Emergency Provider Emergency Medicine; PCP Family Medicine
DX: S63.502A Unspecified sprain of left wrist, initial encounter (principal); S66.912A Strain of unspecified muscle, fascia and tendon at wrist and hand level, left hand, initial encounter; W10.8XXA Fall (on) (from) other stairs and steps, initial encounter
CPT/HCPCS: 73090; 73110; 73130; 99284

== ENCOUNTER 2025-01-14 14:43 | Outpatient (CLI) | payer MEDICARE, OTHER, SELFPAY ==
--- OUTSIDE RECORDS SUMMARY | 2024-12-08 13:40 | XMS_ITS | Encounter Summary ---
Author Organization [facility] Address [address] [place] [address] Care Team Providers Care Personal Counselor Name Role Phone Rosa M Hollingsworth Primary Care Provider [phone] Duc Sinha MD Unavailable [phone] Reason for Referral * Imaging (Routine) - Pending Review Specialty Diagnoses / Procedures Referred By Ziyad terry Referred To Contact Cardiology Diagnoses Asymptomatic stenosis of right carotid artery Procedures VAS US Carotid Duplex Bilateral Maren Martini MD [address] [facility] [address] [place] [address] Phone: tel: fax: Referral ID Status Reason Start Date Expiration Date Visits Requested Visits Authorized [id number] Pending Review Perform Procedure 12/16/2024 06/17/2026 1 1 Reason for Visit * Reason Comments Carotid artery stenosis, unilateral, rig ht * Consultation (Routine) - Closed Specialty Diagnoses / Procedures Referred By Contact Referred To Contact Vascular Surgery / [facility] Diagnoses Carotid artery stenosis, unilateral, right Colleen August, 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 [address] [facility] [address] [place] [address] Phone: tel: fax: [facility] [address] [place] [address] Phone: tel: fax: Referral ID Status Reason Start Date Expiration Date V isits Requested Visits Authorized [id number] Closed Specialty Services Required 09/03/2024 03/05/2026 1 1 Encounter Details Date Type Department Care Team (Latest Contact Info) Description 12/08/2024 1:40 PM EDT Office Visit [facility] [address] [place] [address] Maren Martini MD [address] [facility] [address] [place] [address] Asymptomatic stenosis of right carotid artery (Primary Dx) Social History Tobacco Use Types Packs/Day Years Used Date Smoking Tobacco: Former Passive Smoke Exposure: Past Smokeless Tobacco: Never Tobacco Cessation:Counseling Given: Not Answered Alcohol Use Standard Drinks/Week Comments Never 0 (1 standard drink = 0.6 oz pur e alcohol) AUDIT-C Answer Date Recorded Q1: How often do you have a drink containing alcohol? Never 12/08/2024 Q2: How many drinks containi ng alcohol do you have on a typical day when you are drinking? Patient does not drink Q3: How often do you have si x or more drinks on one occasion? Never 12/08/2024 Comments Unknown Sex and Gender Information Value Date Recorded Sex Assigned at Not on file Legal Sex Female 8:07 PM EDT Gender Identity Not on file Sexual Orientation Not on file documented as of this encounter Last Filed Vital Signs Vital Sign Reading Time Taken Comments Blood Pressure 134/74 12/08/2024 1:39 PM EDT Pulse 97 12/08/2024 1:26 PM EDT Temperature 36.1 C (97 F) 12/08/2024 1:26 PM EDT Respiratory Rate - - Oxygen Saturation 95% 12/08/2024 1:26 PM EDT Inhaled Oxygen Concentration - - Weight 94.2 kg (207 lb 10.8 oz) 12/08/2024 1:26 PM EDT Height 167.6 cm (5' 6 ) 12/08/2024 1:26 PM EDT Body Mass Index 33.52 12/08/2024 1:26 PM EDT documented in this encounter Functional Status * AUDIT-C Score Answer Date of Assessment Author 0 12/08/2024 1:27 PM EDT Gee Puckett * Question Answer Date of Assessment Author Q1: How often do you have a drink containing alcohol? Never 12/08/2024 1:27 PM EDT Silvia Puckett Q2: How many drinks containing alcohol do you have on a typical day when you are drinking? Patient does not drink 12/08/2024 1:27 PM EDT Silvia Puckett Q3: How often do you have six or more drinks on one occasion? Never 12/08/2024 1:27 PM EDT Silvia Puckett documented as of this encounter Miscellaneous Notes * Progress Notes - Maren Martini MD - 12/08/2024 1:40 PM EDT Dear Rosa M Hollingsworth PA, HPI We had the pleasure of seeing your patient, Александр Laureano, in clinic today for her asymptomatic Carotid Stenosis. As you know, she has not had previous carotid surgery. This is our first timeseeing her, she has not had any symptoms. Images from 09/30/23 show R ICA stenosis. This was first discovered in 2017 after she had a heart stent placed. She has chest pain all the time from broken ribs and reflux. Antiplatelet: 81 mg ASA Anticoagulation: none Statin: maybe rosuvastatin? 40 mg although she told them she was not taking it on intake Smoking hx: prior smoker I personally and independently reviewed the CT Images from today's visit which showed: 09/30/23 CTA neck R ICA stenosis of 70-75% per official read but potentially less based on my measurements Her chronic comorbid conditions that impact our treatment planning include: Hypertension (HTN) - well controlled, with a last BP of: BP Readings from Last 3 Encounters: 12/08/24 134/74 10/01/23 105/72 05/02/23 129/63 Dyslipidemia - control uncertain, with most recent Lipid Profile of: CHOL: No results found for requested labs within last 365 days.mg/dL, HDL: No results found for requested labs within last 365 days.mg/dL, LDL: No results found for requested labs within last 365 days.mg/dL, TG: No results found for requested labs within last 365 days.mg/dL COPD - stable Obesity - stable, with a last BMI of: Body mass index is 33.52 kg/m??. Fluid & Electrolyte Disorders - stable, with the following disturbances: hypokalemia and hypocalcemia Cardiac Arrhythmia - stable, with the following arrhythmia: tachyarrhythmia Coronary artery disease Pulmonary nodules Pericardial effusion GERD Adnexal cyst Closed fractures of multiple ribs Hypothyroid Adrenal adenoma, right Anemia of chronic disease The following portions of the chart were reviewed this encounter and updated as appropriate: Tobacco Allergies Meds Problems Med Hx Surg Hx Fam Hx Subjective Review of Systems Constitutional: Negative for activity change, appetite change, chills, diaphoresis, fatigue and fever. HEENT: Negative for congestion, hearing loss and sore throat. Eyes: Negative for pain, discharge and itching. Respiratory: Negative for cough, shortness of breath and wheezing. Cardiovascular: chest pain Gastrointestinal: Negative for abdominal distention, abdominal pain, nausea and vomiting. Genitourinary: Negative for difficulty urinating. Skin: Negative for color change, rash and wound. Neurological: Negative for dizziness and weakness. Psychiatric/Behavioral: Negative for agitation. Objective Physical Exam Constitutional: Well developed, well nourished and in no acute distress Ears, Nose, Throat: Normal atraumatic, no neck masses Respiratory: No increased WOB Cardiac: Regular rate Abdomen: Soft, non-tender, no peritoneal signs Musculoskeletal: Normal strength, tone, and muscle mass, no deformities Psychiatric: Mood and affect are within normal limits Neurologic: No focal deficits Skin: No rash or wounds Assessment/Plan In Summary: Александр Laureano is a 69 y.o. year old female who we saw today in clinic. Below norman summary of the diagnoses addressed in today's visit and any associated orders: We do not have recent imaging, recommended carotid duplex and RTC in 1 month for baseline. Also recommend continuing medical management with ASA and statin. We discussed treatment of asymptomatic carotid disease and specifically that intervention may decrease risk of stroke over 5 years from about 10% to 5% however any intervention also has a risk of stroke. Problem List Items Addressed This Visit None Visit Diagnoses Asymptomatic stenosis of right carotid artery (Active) - Primary Relevant Orders VAS US Carotid Duplex Bilateral We will see her back for: Follow up in 1 month (on 01/07/2025). The patient was counseled on the importance of: - aspirin therapy for overall cardiovascular health - statin therapy for control of hyperlipidemia and plaque stabilization. documented in this encounter Plan of Treatment Upcoming Encounters Date Type Department Care Team (Late st Contact Info) Description 02/09/2025 2:00 PM EST Appointment [facility] [address] [place] [address] 02/09/2025 3:00 PM EST Office Visit [facility] [address] [place] [address] Maren Martini MD [address] [facility] [address] [place] [address] Scheduled Orders Name Type Priority Associated Diagnoses Orde r Schedule VAS US Carotid Duplex Bilateral Vascular Ultrasound Routine Asymptomatic stenosis of right carotid artery Expected: 01/15/2025 (Approximate), Expires: 06/19/2026 documented as of this encounter Visit Diagnoses Diagnosis Asymptomatic stenosis of right carotid artery- Primary documented in this encounter Additional Health Concerns Assessment Noted Time A fall risk assessment has been complete d for the patient 12/08/2024 1:37 PM EDT A Body Mass Index follow-up plan has been documented for the patient 12/16/2024 4:33 PM EDT documented as of this encounter Care Teams Personal Counselor Relationship Specialty Start Date End Date Rosa M Hollingsworth PA [address] [place] [address] PCP - General 08/19/20 Duc Sinha MD [address] [address] Referring Physician Cardiology 10/11/20 documented as of this encounter
[2025-01-13 19:41] LABS: Hematocrit 39.0 % (37.0-47.0); Hemoglobin 12.0 g/dL (12.2-16.2); Immature Granulocytes % 0.4 %; Mean Corpuscular HGB Conc 30.8 g/dL (31.8-35.4); Mean Corpuscular Hemoglobin 28.2 pg (27.0-31.2); Mean Corpuscular Volume 91.5 fl (81-99); Nucleated Red Blood Cells % 0 %; Platelet Count 243 K/mm3 (142-424); Red Blood Count 4.26 M/mm3 (4.20-5.40); Red Cell Distribution Width-SD 46.3 fL; White Blood Count 14.0 K/mm3 (4.8-10.8)
[2025-01-13 21:06] LABS: Alanine Aminotransferase 18 U/L (12-78); Albumin Level 4.0 g/dl (3.5-5.0); Albumin/Globulin Ratio 1.7 (1.1-1.8); Alkaline Phosphatase 85 U/L (38-126); Anion Gap 12.4 mEq/L (5-15); Aspartate Amino Transferase 24 U/L (14-36); Bilirubin,Total 0.8 mg/dl (0.2-1.3); Blood Urea Nitrogen 17 mg/dl (7-17); Calcium 8.8 mg/dl (8.4-10.2); Carbon Dioxide 35 mmol/L (22.0-30.0); Chloride 96 mmol/L (98-107); Creatinine,Serum 0.80 mg/dl (0.52-1.04); Estimated Glomerular Filt Rate 71 ml/min (>60); GFR (African American) 86 ML/MIN (>60); Globulin 2.4 g/dL (1.3-3.2); Glucose 98 mg/dl (74-100); Potassium 4.4 mmoL/L (3.5-5.1); Sodium 139 mmol/L (136-145); Total Protein,Serum 6.4 g/dl (6.3-8.2)
[2025-01-13 21:36] LABS: Thyroid Stimulating Hormone 1.38 uIU/mL (0.465-4.68)
[2025-01-13 22:58] LABS: Iron 72 ug/dL (37-170)
[2025-01-13 23:09] LABS: Total Iron Binding Capacity 345 ug/dL (265-497)
[2025-01-13 23:34] LABS: Ferritin 16.0 ng/ml (11.1-264)
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
--- OUTSIDE RECORDS SUMMARY | 2025-01-15 00:49 | XMS_ITS | Encounter Summary ---
Author Organization [facility] Address [address] [place] [address] Care Team Providers Care Chrome Cleaner Name Role Phone Rosa M Hollingsworth Primary Care Provider [phone] Duc Sinha MD Unavailable Encounter Details Date Type Department Care Team (Late st Contact Info) Description 10/19/2024 Telephone [facility] [address] [facility] 5th Floor [address] [place] [address] Maren Martini MD [address] [facility] [address] [place] [address] Social History Tobacco Use Types [...] Notes * Telephone Encounter - Marquise Laguna - 10/19/2024 11:19 AM EDT LVM for granddaughter calling to confirm tmr's consult with Dr. Martini. Informed about time/date/location/provider she will be seeing. Gave clinic number to call back to confirm/cancel/reschedule. documented in this encounter Plan of Treatment Upcoming Encounters Date Type Department Care Team (Late st Contact Info) Description 02/09/2025 2:00 PM EST Appointment [facility] [address] [place] [address] 02/09/2025 3:00 PM EST Office Visit [facility] [address] [place] [address] Maren Martini MD [address] [facility] [address] [place] [address] documented as of this encounter Visit Diagnoses Not on filedocumented in this encounter Additional Health Concerns Assessment Noted Time A Body Mass Index follow-up plan has been documented for the patient 10/01/2023 3:38 PM EDT documented as of this encounter Care Teams Chrome Cleaner Relationship Specialty Start Date End Date Rosa M Hollingsworth PA [address] [facility] [place] [address] PCP - General 08/19/20 Duc Sinha MD [address] [address] Referring Physician Cardiology 10/11/20 documented as of this encounter
--- OUTSIDE RECORDS SUMMARY | 2025-01-15 00:49 | XMS_ITS | Clinical Summary ---
Author Organization [facility] Address [address] [place] [address] Care Team Providers Care Afloat Cryptologic Manager Name Role Phone Comfort Shah APRN Primary Care Provider [phone] Allergies Active Allergy Reactions Criticality Noted Date [...] (12/26/2016): Added automatically from request for surgery [id number] Family History Medical History Relation Name Comments [...] ZOSTER VACCINE (1 of 2) 2005 ANNUAL WELLNESS VISIT 12/14/2016 INFLUENZA VACCINE 11/06/2024 COVID-19 Vaccine ( season) 12/07/202404/2020, 12/16/2020 HEPATITIS C SCREENING Completed 05/01/2023 Insurance MEDICARE A & B Member Subscriber Plan / Payer (Ef fective 2007-Present) Name:Александр Laureano Member ID:[id number] Relation to Subscriber:Self Name:Александр Laureano Subscriber ID:[id number] Payer ID:[id number] Group ID:Not on file Type:Not on file Address: [facility] [id number] Care Teams Afloat Cryptologic Manager Relationship Specialty Start Date End Date Comfort Shah APRN [address] [place] [address] [place] [address] [place] [address] PCP - General Family Medicine 10/12/16
--- OUTSIDE RECORDS SUMMARY | 2025-01-15 00:49 | XMS_ITS | Encounter Summary ---
Author Organization [facility] Address [address] [place] [address] Care Team Providers Care Service Department Manager Name Role Phone Comfort Shah APRN Primary Care Provider [phone] Encounter Details Date Type Department Care Team (Late st Contact Info) Description 04/02/[address] [facility] CARDIOTHORACIC SURGERY [address] [facility] [address] [place] [address] Ty Vaughn Social History Tobacco [...] on filedocumented in this encounter Care Teams Service Department Manager Relationship Specialty Start Date End Date Comfort Shah APRN [address] [place] [address] [place] [address] [place] [address] PCP - General Family Medicine 10/12/16 documented as of this encounter
--- OUTSIDE RECORDS SUMMARY | 2025-01-15 00:49 | XMS_ITS | Encounter Summary ---
Author Organization [facility] Address [address] [place] [address] Care Team Providers Care Checker Stocker Name Role Phone Rosa M Hollingsworth Primary Care Provider [phone] Duc Sinha MD Unavailable [phone] Encounter Details Date Type Department Care Team (Latest Contact Info) Description 12/08/2024 Travel Social History Tobacco Use Types Packs/Day Years Used Date Smoking Tobacco: Former Passive Smoke Exposure: Past Smokeless Tobacco: Never Alcohol Use Standard Drinks/Week Comments Never 0 [...] on file documented as of this encounter Functional Status * AUDIT-C Score [...] Silvia Puckett documented as of this encounter Plan of Treatment Upcoming Encounters Date Type Department Care Team (Late st Contact Info) Description 02/09/2025 2:00 PM EST Appointment [facility] [address] [place] [address] 02/09/2025 3:00 PM EST Office Visit [facility] [address] [place] [address] Maren Martini MD [address] [facility] [address] [place] [address] documented as of this encounter Visit Diagnoses Not on filedocumented in this encounter Additional Health Concerns Assessment Noted Time A fall risk assessment has been complete d for the patient 12/08/2024 1:37 PM EDT A Body Mass Index follow-up plan has been documented for the patient 12/16/2024 4:33 PM EDT documented as of this encounter Care Teams Checker Stocker Relationship Specialty Start Date End Date Rosa M Hollingsworth PA [address] [facility] [place] [address] PCP - General 08/19/20 Duc Sinha MD [address] [address] Referring Physician Cardiology 10/11/20 documented as of this encounter
--- OUTSIDE RECORDS SUMMARY | 2025-01-15 00:49 | XMS_ITS | Encounter Summary ---
Author Organization [facility] Address [address] [place] [address] Care Team Providers Care Title Specialist Name Role Phone Rosa M Hollingsworth Primary Care Provider [phone] Duc Sinha MD Unavailable [phone] Reason for Visit * Reason Onset Date Comments [facility] Clinical Concern/Question 12/08/2024 Encounter Details Date Type Department Care Team (Late st Contact Info) Description 12/08/2024 Telephone [facility] [address] [facility] 5th Floor [address] [place] [address] Maren Martini MD [address] [facility] [address] [place] [address] HCN Clinical Concern/Question Social History Tobacco Use Types Packs/Day Years [...] encounter Miscellaneous Notes * Telephone Encounter - Laurence Main - 12/08/2024 10:28 AM EDT Patient Phone Message Reason for Call: Medical Records with [facility] is calling they received a records request, States pt has not been seen at that facility since 2002. No specific records were requested either. Please advise if something is needed from them that far back Best contact number and optimal time of day to reach caller: Note: Please do not reply to this message. Follow-up communication and further actions as a result of this message need to be communicated with the patient directly, if the patient is not active onMyChart. If the patient is active on MyChart, they will receive notification of the communication/outcome via MyChart. documented in this encounter Plan of Treatment Upcoming Encounters Date Type Department Care Team (Late st Contact Info) Description 02/09/2025 2:00 PM EST Appointment [facility] [address] [facility] 5th Floor [address] [place] [address] 02/09/2025 3:00 PM EST Office Visit [facility] [address] 5th Floor [address] [place] [address] Maren Martini MD [address] [facility] [address] [place] [address] documented as of this encounter Visit Diagnoses Not on filedocumented in this encounter Additional Health Concerns Assessment Noted Time A fall risk assessment has been complete d for the patient 12/08/2024 1:37 PM EDT A Body Mass Index follow-up plan has been documented for the patient 12/16/2024 4:33 PM EDT documented as of this encounter Care Teams Title Specialist Relationship Specialty Start Date End Date Rosa M Hollingsworth PA [address] [place] [address] PCP - General 08/19/20 Duc Sinha MD [address] [address] Referring Physician Cardiology 10/11/20 documented as of this encounter
== END 2025-01-14 23:59 ==
LOC: LAB.DROPOF 01-15 00:48
PROVIDERS: PCP Family Medicine; Visit Provider Family Medicine
DX: D50.9 Iron deficiency anemia, unspecified (principal); E03.9 Hypothyroidism, unspecified
CPT/HCPCS: 80053; 82728; 83540; 83550; 84443; 85025